=== PATIENT | female | born 1945 | race Caucasian/White ===

== ENCOUNTER → 2017-06-27 | Outpatient (CLI) | payer MEDICARE ==
--- NOTE | 2017-06-28 09:18 | MM ---
Reason for exam: screening (asymptomatic). Last mammogram was performed 1 year and 2 months ago. History: Patient is postmenopausal and had first child at age 33. Took estrogen for 8 years beginning at age 38. Physical Findings: A clinical breast exam by your physician is recommended on an annual basis and results should be correlated with mammographic findings. MG 3D Screening Mammo W/Cad Bilateral CC and MLO view(s) were taken. Prior study comparison: May 04, 2016, bilateral MG 3d screening mammo w/cad. April 25, 2015, bilateral MG screening mammo w CAD. The breast tissue is heterogeneously dense. This may lower the sensitivity of mammography. Finding: There are typically benign round calcifications in both breasts. There is no discrete abnormality. Increasing group of indistinct calcifications in the right breast anterior middle depth. ASSESSMENT: Incomplete: need additional imaging evaluation, BI-RAD 0 RECOMMENDATION: Special view mammogram of the right breast. [facility] will attempt to contact patient to return for supplemental views.
== END | disposition home or self-care (01) ==
LOC: RADMAMWWP 09:25
PROVIDERS: ATTEND Internal Medicine
DX: Z12.31 Encounter for screening mammogram for malignant neoplasm of breast (principal)
CPT/HCPCS: 77063; G0202

== ENCOUNTER → 2018-08-11 | Outpatient (CLI) | payer MEDICARE ==
--- NOTE | 2018-08-14 11:44 | MM ---
Reason for exam: additional evaluation requested from prior study. Last mammogram was performed 1 year and 1 month ago. History: Patient is postmenopausal and had first child at age 33. Took estrogen for 8 years beginning at age 38. Physical Findings: Nurse did not find any significant physical abnormalities on exam. MG 3D Diag Mammo W/Cad JARAD Bilateral CC and MLO view(s) were taken. LM view(s) were taken of the right breast. Prior study comparison: July 04, 2017, right breast MG 3d work up w/cad RT. June 27, 2017, bilateral MG 3d screening mammo w/cad. The breast tissue is heterogeneously dense. This may lower the sensitivity of mammography. There are increased in number grouped heterogeneous calcifications in the right middle position at 12 o'clock, more conspicuous. This finding is changed when compared with previous exams. These results were verbally communicated with the patient and result sheet given to the patient on 08/11/18. ASSESSMENT: Suspicious, BI-RAD 4 RECOMMENDATION: Stereotactic core biopsy of the right breast. Called Dr. Han with mammographic findings and has scheduled an appointment for the patient for 08/21/18 at 2:[address] Mar. PRELIMINARY REPORT CALLED AND FAXED TO DR. MAR ON 08/14/18.
== END | disposition home or self-care (01) ==
LOC: RADMAMWWP 09:32
PROVIDERS: ATTEND Internal Medicine
DX: R92.8 Other abnormal and inconclusive findings on diagnostic imaging of breast (principal)
CPT/HCPCS: 77066; G0279; 77062

== ENCOUNTER → 2018-09-15 | Day surgery (SDC) | payer MEDICARE ==
[2018-09-15 09:38] VITALS: RESP 16; TEMP 98; BMI 25.4
[2018-09-15 11:34] VITALS: BP 162/76; PULSE 76
--- NOTE | 2018-09-15 16:41 | MM ---
EXAMINATION TYPE: MG stereo VAD BX RT DATE OF EXAM: 09/15/2018 COMPARISON: 08/11/2018 CLINICAL HISTORY: Abnormal mammogram, calcifications TECHNIQUE: Stereotactic guided core biopsy of right breast. FINDINGS: The procedure of stereotactic guided core biopsy was explained to the patient. Benefits, alternatives, and risks were discussed. An informed consent was then obtained. Timeout was performed. The shortness pathway for biopsy was chosen. The procedure was performed by radiology. Targeting was performed by radiology. Specimen: Specimen contains calcifications Postprocedure mammogram ordered by the physician was performed. The core marker is at the location of the previous calcifications. The patient tolerated the procedure well without any immediate complication. The patient was kept in the radiology department for short stay after the procedure and then discharged home in stable condition. Discharge instructions were discussed with the patient. The patient will follow-up with her referring physician. IMPRESSION: 1. Successful stereotactic core biopsy right breast calcifications. Recommendations: 1. Recommendations are pending pathology results. Pathology Results: Benign RIGHT BREAST, STEREOTACTIC CORE BIOPSY: Fibrocystic changes including fibroadenomatoid hyperplasia with calcifications, fibrosis, and focal mild usual type ductal hyperplasia. Recommendation Follow up mammogram of the right breast in 6 months. ANYA
== END | disposition home or self-care (01) ==
LOC: RADMAMWWP 09:16
PROVIDERS: ATTEND Student in an Organized Health Care Education/Training Program
DX: N60.31 Fibrosclerosis of right breast (principal); N60.91 Unspecified benign mammary dysplasia of right breast; Z88.5 Allergy status to narcotic agent; Z88.0 Allergy status to penicillin
CPT/HCPCS: 88305; 19081; A4648; J2001

== ENCOUNTER → 2019-04-24 | Outpatient (CLI) | payer MEDICARE ==
--- NOTE | 2019-04-24 15:02 | BD ---
EXAMINATION TYPE: Axial Bone Density DATE OF EXAM: 04/24/2019 COMPARISON: 2016 CLINICAL HISTORY: bone disorders Height: 5'1 3/4 Weight: 147 FRAX RISK QUESTIONS: Glucocorticoids (More than 3mos): y (Ex: prednisone, prednisolone, methylprednisolone, dexamethasone, and hydrocortisone). Secondary Osteoporosis: 3. Menopause before 45: y RISK FACTORS HISTORY OF: Postmenopausal woman: y MEDICATIONS: Osteoporosis Medications: Which medication: Evista How Lon years Additional Medications: blood pressure, asthma, Additional History: EXAM MEASUREMENTS: Bone mineral densitometry was performed using the Directed Edge System. Bone mineral density as measured about the Lumbar spine is: ----- L1-L4(G/cm2): 1.079 T Score Values are as follows: ----- L2:-1.4 ----- L3:-0.6 ----- L4: -0.9 ----- L1-L4: -0.8 Bone mineral density has: Increased 2.5since study of: 05/04/2016 Bone mineral density about the R hip (g/cm2): 0.798 Bone mineral density about the L hip (g/cm2): 0.778 T Score values are as follows: -----R Neck: -1.7 -----L Neck: -1.9 -----R Total: -1.1 -----L Total: -1.5 Bone mineral density has: Decreased -1.2isince studyf: 05/04/2019 IMPRESSION: Osteopenia (T Score between -2.5 and -1). There is slightly increased risk of fracture and the patient may be considered for treatment. Re-Screen 2-5 years. NOTE: T-SCORE=SD OF THE YOUNG ADULT MEAN.
--- NOTE | 2019-04-24 15:06 | MM ---
Reason for exam: follow-up at short interval from prior study. Last mammogram was performed 8 months ago. History: Patient is postmenopausal and had first child at age 33. Benign MG stereo VAD BX RT of the right breast, September 15, 2018. Took estrogen for 8 years beginning at age 38. Physical Findings: Nurse did not find any significant physical abnormalities on exam. MG 3D Diag Mammo W/Cad RT CC and MLO view(s) were taken of the right breast. Prior study comparison: August 11, 2018, bilateral MG 3d diag mammo w/cad JARAD. July 04, 2017, right breast MG 3d work up w/cad RT. The breast tissue is heterogeneously dense. This may lower the sensitivity of mammography. The previously seen abnormality resolves on additional views and appears as fibroglandular tissue compatible with summation. Right biopsy marker noted. These results were verbally communicated with the patient and result sheet given to the patient on 04/24/19. ASSESSMENT: Benign, BI-RAD 2 RECOMMENDATION: Routine screening mammogram of both breasts in 3 months. Back on schedule for July 2019.
== END | disposition home or self-care (01) ==
LOC: RADMAMWWP 13:43
PROVIDERS: ATTEND Internal Medicine
DX: R92.8 Other abnormal and inconclusive findings on diagnostic imaging of breast (principal); M85.89 Other specified disorders of bone density and structure, multiple sites
CPT/HCPCS: 77080; 77065; G0279; 77061

== ENCOUNTER → 2019-08-02 | Outpatient (CLI) | payer MEDICARE ==
--- NOTE | 2019-08-02 15:31 | CT ---
EXAMINATION TYPE: CT abdomen pelvis w con DATE OF EXAM: 08/02/2019 COMPARISON: None HISTORY: Abdominal pain, diarrhea CT DLP: 1073 mGycm CONTRAST: CT scan of the abdomen and pelvis is performed with Oral Contrast and with IV Contrast, patient injec colby with 100 mL of Isovue 300. FINDINGS: LUNG BASES-: No visible nodule. No infiltrate. LIVER/GB: No calcified gallstones. No space occupying hepatic lesion. Biliary tree is of normal ca liber. Mild hepatic steatosis suggested. PANCREAS: No inflammation. No distinct mass. SPLEEN: No splenic enlargement. No lesion seen. ADRENALS: No nodule. No thickening. KIDNEYS/BLADDER: No hydronephrosis. No nephrolithiasis. Parapelvic cyst left kidney. Renal cortical cyst lower pole right kidney measuring 4.8 cm. Urinary bladder grossly unremarkable. BOWEL: Normal appendix. Normal bowel caliber. No inflammation. Moderate fecal stasis. Scattered sig moid diverticula without diverticulitis. GENITAL ORGANS: No gross abnormality. LYMPH NODES: No greater than 1cm abdominal or pelvic lymph nodes are appreciated. AORTA: No significant abnormality. OSSEOUS STRUCTURES: No significant abnormality is seen. OTHER: No significant additional abnormality is seen. IMPRESSION: 1. Moderate fecal stasis. Scattered sigmoid diverticula without diverticulitis.
== END | disposition home or self-care (01) ==
LOC: RADCTMAIN 12:47
PROVIDERS: ATTEND Surgery Plastic and Reconstructive Surgery
DX: K57.30 Diverticulosis of large intestine without perforation or abscess without bleeding (principal); K56.41 Fecal impaction; Z88.0 Allergy status to penicillin
CPT/HCPCS: 82565; 84520; 74177; 36415; Q9967

== ENCOUNTER → 2019-08-23 | Outpatient (CLI) | payer MEDICARE ==
--- NOTE | 2019-08-23 09:25 | US ---
EXAMINATION TYPE: US gallbladder DATE OF EXAM: 08/23/2019 COMPARISON: CT 08/02/2019 CLINICAL HISTORY: R10.11 right upper quadrant pain. Difficult and limited exam due to overlying bowel gas EXAM MEASUREMENTS: Liver Length: 14.1 cm Gallbladder Wall: 0.2 cm CBD: 0.4 cm Right Kidney: 11.3 x 4.6 x 4.5 cm Pancreas: Obscured by bowel gas Liver: Echogenic echotexture suggesting mild degree hepatic steatosis. This limits evaluation for un derlying hepatic masses. Gallbladder: wnl Evidence for sonographic Hansen's sign: No CBD: wnl as visualized, distal portion obscured by bowel gas Right Kidney: Cyst lower pole measuring 4.6 x 5.2 x 5.8 cm. This appears simple with increased throu gh transmission. IMPRESSION: 1. Sonographic findings most commonly related to hepatic steatosis. Correlate with liver function fidel ts. 2. Simple appearing 5.8 cm right renal cyst. 3. Obscuration of the pancreas by overlying bowel gas.
== END ==
LOC: RADUSWWP 08:16
PROVIDERS: ATTEND Surgery Plastic and Reconstructive Surgery
DX: K76.0 Fatty (change of) liver, not elsewhere classified (principal); N28.1 Cyst of kidney, acquired
CPT/HCPCS: 76705

== ENCOUNTER 2019-09-05 08:47 | Day surgery (SDC) | payer MEDICARE ==
[2019-09-03 09:46] VITALS: BMI 26.0
[~2019-09-05 08:47] MED LIST: LACTATED RINGERS 1,000 ML IV SCH
[2019-09-05 09:10] VITALS: RESP 16; TEMP 98.1
[2019-09-05] MEDS ORDERED: LIDOCAINE 1% 20 ML VIAL (10MG/ML) FOR IV START INTRADERMA ONE (09:16)
[2019-09-05 09:19] LABS: Glucose,Whole Blood 81 mg/dL (75-99)
[2019-09-05] MEDS ORDERED: PROPOFOL 10 MG/ML 20 ML VIAL IV ONE (09:35)
--- NOTE | 2019-09-05 10:04 | P.GSHP ---
History of Present Illness H&P Date: 09/05/19 CHIEF COMPLAINT: GERD and colon screen HISTORY OF PRESENT ILLNESS: The patient is a 73-year-old female who presents with gastroesophageal reflux disease and need for colon screen. Upper and lower endoscopy were offered for further evaluation and management. PAST MEDICAL HISTORY: Please see list. PAST SURGICAL HISTORY: Please see list. MEDICATIONS: Please see list. ALLERGIES: Please see list. SOCIAL HISTORY: No illicit drug use FAMILY HISTORY: No reports of Crohn disease or ulcerative colitis. REVIEW OF ORGAN SYSTEMS: CONSTITUTIONAL: No reports of fevers or chills. GI: Denies any blood in stools or constipation. PHYSICAL EXAM: VITAL SIGNS: Stable GENERAL: Well-developed pleasant in no acute distress. HEENT: No scleral icterus. Extraocular movements grossly intact. Moist buccal mucosa. NECK: Supple without lymphadenopathy. CHEST: Unlabored respirations. Equal bilateral excursions. CARDIOVASCULAR: Regular rate and rhythm. Distal 2+ pulses. ABDOMEN: Soft, nondistended. MUSCULOSKELETAL: No clubbing, cyanosis, or edema. ASSESSMENT: 1. Gastroesophageal reflux disease 2. Colon screen. PLAN: 1. Recommend proceeding with an upper and lower endoscopy Past Medical History Past Medical History: Asthma, GERD/Reflux, Hypertension Additional Past Medical History / Comment(s): daily steroid,hx diverticulosis History of Any Multi-Drug Resistant Organisms: ESBL Date of last positivie culture/infection: 06/22/19 MDRO Source:: URINE ESBL Past Surgical History: Bowel Resection, Joint Replacement Additional Past Surgical History / Comment(s): right total knee replacement. left knee arthroscopy. monae cataract Past Anesthesia/Blood Transfusion Reactions: Motion Sickness, Postoperative Nausea & Vomiting (PONV) Smoking Status: Never smoker - Past Family History Mother Family Medical History: No Reported History Brother(s) Family Medical History: Cancer Medications and Allergies Home Medications Medication Instructions Recorded Confirmed Type Albuterol Inhaler [Ventolin Hfa 2 puff INHALATION Q6H PRN 07/15/17 09/05/19 History Inhaler] Aspirin [Adult Low Dose Aspirin EC] 81 mg PO DAILY 07/15/17 09/05/19 History Felodipine [Felodipine ER] 5 mg PO QAM 07/15/17 09/05/19 History Hydrochlorothiazide 25 mg PO Q2D 07/15/17 09/05/19 History Montelukast [Singulair] 10 mg PO HS 10/27/17 12/18/19 History Potassium Chloride ER [K-Dur 20] 20 meq PO BID 07/15/17 09/05/19 History Raloxifene HCl 60 mg PO DAILY 07/15/17 09/05/19 History predniSONE 5 mg PO QAM 07/15/17 09/05/19 History Beclomethasone Dip 80 Mcg/Puff 2 puff INHALATION BID 09/05/18 09/05/19 History [Qvar 80 mcg] Latanoprost Ophth [Xalatan 0.005%] 1 drops BOTH EYES HS 09/05/18 09/05/19 Histo ry Carboxymethylcellulose Sodium 1 drop BOTH EYES TID PRN 09/03/19 09/05/19 History [Refresh Tears] Esomeprazole Magnesium 40 mg PO DAILY 09/03/19 09/05/19 History Nepafenac [Ilevro] 1 drop LEFT EYE QAM 09/03/19 09/05/19 History Allergies Allergy/AdvReac Type Severity Reaction Status Date / Time Penicillins Allergy Rash/Hives Verified 09/05/19 09:02 codeine AdvReac Nausea & Verified 09/05/19 09:02 Vomiting Surgical - Exam Vital Signs Temp Pulse Resp BP Pulse Ox 98.1 F 86 16 160/73 93 L 09/05/19 09:04 09/05/19 09:04 09/05/19 09:04 09/05/19 09:04 09/05/19 09:04
--- NOTE | 2019-09-05 10:09 | P.PCN ---
Date of Procedure: 09/05/19 Description of Procedure: PREOPERATIVE DIAGNOSIS: Gastroesophageal reflux disease. Dysphagia POSTOPERATIVE DIAGNOSIS: Gastroesophageal reflux disease erosive esophagitis Dysphagia Diaphragmatic hiatal hernia OPERATION: Esophagogastroduodenoscopy with biopsies along antrum. SURGEON: Kacy Acuña MD ANESTHESIA: MAC. INDICATIONS: The patient is a 73-year-old female who presents with a history of reflux disease. Benefits and risks of the procedure were described. Informed consent was obtained. DESCRIPTION: The patient was brought into the endoscopy suite and laid in the left lateral decubitus position. An Olympus gastroscope was passed along the posterior oropharynx down to the distal esophagus where the squamocolumnar junction was encountered at 35 cm from the incisors. The stomach was entered and no bile reflux was found. Additional findings are listed below. Biopsies with cold forceps were obtained of the antrum. The first through third portion of the duodenum was examined and unremarkable. Retroflexion of the scope confirmed Hill grade 4 lower esophageal valve. The squamocolumnar junction demonstrated LA grade C erosive esophagitis. The stomach was desufflated. The patient tolerated the procedure well. FINDINGS: Squamocolumnar junction 35 cm from the incisors. Diaphragmatic hiatus at 40 cm. Hiatal hernia, 5 cm Hill grade 4 lower esophageal valve. LA grade C erosive esophagitis. No active duodenitis. Chronic gastritis RECOMMENDATIONS: Upper endoscopy as needed.
--- NOTE | 2019-09-05 10:19 | P.PCN ---
Date of Procedure: 09/05/19 Description of Procedure: PREOPERATIVE DIAGNOSIS: History of rectal mass Change in bowel habits POSTOPERATIVE DIAGNOSIS: History of rectal mass Change in bowel habits Pandiverticulosis External hemorrhoids History of sigmoid resection OPERATION: Colonoscopy to the ileocecal valve and appendiceal orifice. Colonoscopy with cold forceps biopsies SURGEON: Kacy Acuña MD. ANESTHESIA: MAC. INDICATIONS: The patient is an 73-year-old female who presents with change in bowel habits including rectal mass. Benefits and risks were described and informed consent was obtained. DESCRIPTION OF PROCEDURE: The patient had undergone Suprep. She had been brought into the operating room and laid in the left lateral decubitus position. After adequate intravenous sedation, the rectum was examined with 2% lidocaine jelly. External hemorrhoids were encountered. The rectal tone was within normal limits. No lesions were palpated in the rectal vault. An Olympus colonoscope was advanced until the ileocecal valve was clearly viewed. The prep was excellent. Boston-colo anastomosis was found consistent with prior resection of the distal rectum consistent with previous sigmoid resection/low anterior resection. The colon was highly redundant and floppy. Severe meier-diverticulosis was encountered. A hyperplastic polyp at the sigmoid colon was removed using cold forceps biopsy. No evidence of focal colitis was found. Retroflexion of the scope demonstrated grade 2 internal hemorrhoids without active bleeding or inflammation. The colon was desufflated. The patient had tolerated the procedure well. Withdrawal time was over 6 minutes. FINDINGS: Aronchick preparation quality scale 1 (1-5) Internal hemorrhoids, grade 2 External hemorrhoids, grade 3. No arteriovenous malformations. Severe meier diverticulosis Colon anastomosis consistent with low anterior resection Removal of 1 polyp: - Cold forceps biopsy at 30 cm from the anal verge, 3 mm polyp. No focal colitis. RECOMMENDATIONS: Lower endoscopy as needed Plan - Discharge Summary Discharge Rx Participant: No New Discharge Prescriptions: No Action predniSONE 5 mg PO QAM Raloxifene HCl 60 mg PO DAILY Potassium Chloride ER [K-Dur 20] 20 meq PO BID Montelukast [Singulair] 10 mg PO HS Hydrochlorothiazide 25 mg PO Q2D Felodipine [Felodipine ER] 5 mg PO QAM Aspirin [Adult Low Dose Aspirin EC] 81 mg PO DAILY Albuterol Inhaler [Ventolin Hfa Inhaler] 2 puff INHALATION Q6H PRN PRN Reason: Bronchospasm Latanoprost Ophth [Xalatan 0.005%] 1 drops BOTH EYES HS Beclomethasone Dip 80 Mcg/Puff [Qvar 80 mcg] 2 puff INHALATION BID Carboxymethylcellulose Sodium [Refresh Tears] 1 drop BOTH EYES TID PRN PRN Reason: dry eyes Esomeprazole Magnesium 40 mg PO DAILY Nepafenac [Ilevro] 1 drop LEFT EYE QAM Discharge Medication List Albuterol Inhaler [Ventolin Hfa Inhaler] 2 puff INHALATION Q6H PRN 07/15/17 [History] Aspirin [Adult Low Dose Aspirin EC] 81 mg PO DAILY 07/15/17 [History] Felodipine [Felodipine ER] 5 mg PO QAM 07/15/17 [History] Hydrochlorothiazide 25 mg PO Q2D 07/15/17 [History] Montelukast [Singulair] 10 mg PO HS 07/15/17 [History] Potassium Chloride ER [K-Dur 20] 20 meq PO BID 07/15/17 [History] Raloxifene HCl 60 mg PO DAILY 07/15/17 [History] predniSONE 5 mg PO QAM 07/15/17 [History] Beclomethasone Dip 80 Mcg/Puff [Qvar 80 mcg] 2 puff INHALATION BID 09/05/18 [History] Latanoprost Ophth [Xalatan 0.005%] 1 drops BOTH EYES HS 09/05/18 [History] Carboxymethylcellulose Sodium [Refresh Tears] 1 drop BOTH EYES TID PRN 09/03/19 [History] Esomeprazole Magnesium 40 mg PO DAILY 09/03/19 [History] Nepafenac [Ilevro] 1 drop LEFT EYE QAM 09/03/19 [History] Follow up Appointment(s)/Referral(s): Kacy Acuña MD [STAFF PHYSICIAN] - 10/02/19 Patient Instructions/Handouts: Hiatal Hernia (DC), Diverticulosis (ED), Diverticulosis Diet (GEN) Activity/Diet/Wound Care/Special Instructions: Colonoscopy as needed. Discharge Disposition: HOME SELF-CARE
[2019-09-05 10:30] VITALS: BP 147/71; PULSE 70
== END 2019-09-05 10:57 | disposition home or self-care (01) ==
LOC: ORWHC2ENDO 08:47
PROVIDERS: ATTEND Surgery Plastic and Reconstructive Surgery
DX: K21.0 Gastro-esophageal reflux disease with esophagitis (principal); I10 Essential (primary) hypertension; J45.909 Unspecified asthma, uncomplicated; K29.50 Unspecified chronic gastritis without bleeding; K44.9 Diaphragmatic hernia without obstruction or gangrene; K63.5 Polyp of colon; K64.4 Residual hemorrhoidal skin tags; Z79.82 Long term (current) use of aspirin; Z79.899 Other long term (current) drug therapy; Z88.0 Allergy status to penicillin; Z88.5 Allergy status to narcotic agent; Z16.12 Extended spectrum beta lactamase (ESBL) resistance; Z96.651 Presence of right artificial knee joint; Z98.42 Cataract extraction status, left eye; Z98.41 Cataract extraction status, right eye; Z86.010 Personal history of colon polyps
CPT/HCPCS: 88305; 45380; 43239; J2704

== ENCOUNTER → 2019-09-07 | Outpatient (CLI) | payer MEDICARE ==
--- NOTE | 2019-09-10 10:31 | MM ---
Reason for exam: screening (asymptomatic). Last mammogram was performed 4 months ago. History: Patient is postmenopausal and had first child at age 33. Benign MG stereo VAD BX RT of the right breast, September 15, 2018. Took estrogen for 8 years beginning at age 38. Physical Findings: A clinical breast exam by your physician is recommended on an annual basis and results should be correlated with mammographic findings. MG 3D Screening Mammo W/Cad Bilateral CC and MLO view(s) were taken. Prior study comparison: April 24, 2019, right breast MG 3d diag mammo w/cad RT. August 11, 2018, bilateral MG 3d diag mammo w/cad JARAD. The breast tissue is heterogeneously dense. This may lower the sensitivity of mammography. There is no discrete abnormality. No significant changes when compared with prior studies. ASSESSMENT: Negative, BI-RAD 1 RECOMMENDATION: Routine screening mammogram of both breasts in 1 year.
== END | disposition home or self-care (01) ==
LOC: RADMAMWWP 09:02
PROVIDERS: ATTEND Family Medicine
DX: Z12.31 Encounter for screening mammogram for malignant neoplasm of breast (principal)
CPT/HCPCS: 77063; 77067

== ENCOUNTER → 2020-05-21 | Outpatient (CLI) | payer MEDICARE ==
--- NOTE | 2020-05-21 11:43 | XR ---
EXAMINATION TYPE: XR cervical spine comp DATE OF EXAM: 05/21/2020 CLINICAL HISTORY: pain COMPARISON: NONE TECHNIQUE: Frontal, lateral, oblique, swimmers, and open mouth view of the cervical spine are obtaine d. FINDINGS: The cervical spine is visualized in its entirety from C1 thru the top of T1 level. It is s atisfactory in alignment without evidence of acute fracture or dislocation. The pre-vertebral soft t issue appears within normal limits. Mild multilevel degenerative disc space narrowing and spondylosis . The C1-C2 articulation is unremarkable on the open mouth view. The oblique images are within antwan l limits. IMPRESSION: No acute fracture or dislocation is seen in the cervical spine.ICD 10 NO FRACTURE, INITI AL EVALUATION
== END | disposition home or self-care (01) ==
LOC: RADXRMAIN 10:38
PROVIDERS: ATTEND Internal Medicine Critical Care Medicine
DX: M54.2 Cervicalgia (principal)
CPT/HCPCS: 72050

== ENCOUNTER 2020-06-13 12:20 | Observation (INO) | payer MEDICARE ==
--- NOTE | 2020-06-13 09:19 | P.GSHP ---
History of Present Illness H&P Date: 06/13/20 CHIEF COMPLAINT: Paraesophageal hiatal hernia with gastroesophageal reflux disease. HISTORY OF PRESENT ILLNESS: The patient is a 74-year-old female who presents with paraesophageal hiatal hernia. She has completed an esophageal manometry including upper endoscopy workup. Now she presents for surgical intervention. PAST MEDICAL HISTORY: Please see list. PAST SURGICAL HISTORY: Please see list. MEDICATIONS: Please see list. ALLERGIES: Please see list. SOCIAL HISTORY: No illicit drug use FAMILY HISTORY: No reports of Crohn disease or ulcerative colitis. REVIEW OF ORGAN SYSTEMS: CONSTITUTIONAL: No reports of fevers or chills. GI: Denies any blood in stools or constipation. PHYSICAL EXAM: VITAL SIGNS: Stable GENERAL: Well-developed pleasant and in no acute distress. HEENT: No scleral icterus. Extraocular movements grossly intact. Moist buccal mucosa. NECK: Supple without lymphadenopathy. CHEST: Unlabored respirations. Equal bilateral excursions. CARDIOVASCULAR: Regular rate and rhythm. Distal 2+ pulses. ABDOMEN: Soft, nondistended. No peritoneal signs. MUSCULOSKELETAL: No clubbing, cyanosis, or edema. SKIN: Well-perfused. Good skin turgor. MANOMETRY: Shows no evidence of achalasia or scleroderma. ASSESSMENT: 1. Diaphragmatic paraesophageal hiatal hernia with severe gastroesophageal reflux disease. PLAN: 1. Recommend proceeding with a robotic paraesophageal hiatal hernia with possible mesh. 2. Benefits and risks of surgical intervention was discussed including possibility of open technique. 3. Inpatient hospitalization recommended of 2 nights 4. DVT prophylaxis. 5. Antibiotic prophylaxis. 6. She has also completed a very low caloric high-protein diet to address underlying hepatomegaly. Past Medical History Past Medical History: Asthma, Eye Disorder, GERD/Reflux, Hypertension, Osteoarthritis (OA) Additional Past Medical History / Comment(s): glaucoma, hx migraines, hiatal hernia, arthritis in hands and feet, "leaky bladder" History of Any Multi-Drug Resistant Organisms: ESBL Date of last positivie culture/infection: 06/22/19 MDRO Source:: URINE ESBL Past Surgical History: Bowel Resection, Breast Surgery, Joint Replacement, Orthopedic Surgery Additional Past Surgical History / Comment(s): monae knee replacement, rt knee arthroscopy, breast biopsy, monae cataracts Past Anesthesia/Blood Transfusion Reactions: Motion Sickness Smoking Status: Never smoker - Past Family History Mother Family Medical History: No Reported History Brother(s) Family Medical History: Cancer Additional Family Medical History / Comment(s): leukemia Medications and Allergies Home Medications Medication Instructions Recorded Confirmed Type Albuterol Inhaler (Mhu) [Ventolin 2 puff INHALATION Q6H PRN 07/15/17 06/11/20 History Hfa Inhaler] Aspirin [Adult Low Dose Aspirin EC] 81 mg PO DAILY 07/15/17 06/11/20 History Felodipine [Felodipine ER] 5 mg PO QAM 07/15/17 06/11/20 History Montelukast [Singulair] 10 mg PO HS 07/15/17 06/11/20 History Potassium Chloride ER [K-Dur 20] 20 meq PO BID 07/15/17 06/11/20 History Raloxifene HCl 60 mg PO DAILY 07/15/17 06/11/20 History hydroCHLOROthiazide 25 mg PO Q2D 07/15/17 06/11/20 History [Hydrochlorothiazide] predniSONE 5 mg PO QAM 07/15/17 06/11/20 History Beclomethasone Dip 80 Mcg/Puff 2 puff INHALATION BID 09/05/18 06/11/20 History [Qvar 80 mcg] Latanoprost Ophth [Xalatan 0.005%] 1 drops BOTH EYES HS 09/05/18 06/11/20 History Carboxymethylcellulose Sodium 1 drop BOTH EYES TID PRN 09/03/19 06/11/20 History [Refresh Tears] Esomeprazole Magnesium 40 mg PO DAILY 09/03/19 06/11/20 History Metoprolol Tartrate [Lopressor] 25 mg PO BID 06/11/20 06/11/20 History Nebulizer(Unknown) 1 applicate IH DIRECTED PRN 06/11/20 06/11/20 History Allergies Allergy/AdvReac Type Severity Reaction Status Date / Time Penicillins Allergy Rash/Hives Verified 06/11/20 08:16 codeine AdvReac Nausea & Verified 06/11/20 08:16 Vomiting
[~2020-06-13 12:20] MED LIST changes: +ACETAMINOPHEN TAB 500 MG TAB PO STA; +CHLORHEXIDINE GLUCONATE 15 ML CUP MUCOUS MEM ONE; +DEXAMETHASONE SOD PHOSPHATE 10 MG/ML 1 ML VIAL IV ONE; +HEPARIN SODIUM,PORCINE 5,000 UNIT/ML 1 ML VIAL SQ ONE; -LACTATED RINGERS 1,000 ML IV SCH; +LIDOCAINE 1% (10MG/ML) FOR IV START INTRADERMA PRN; +MIDAZOLAM 2 MG/2 ML VIAL IV PRN; +ONDANSETRON 4 MG/2 ML VIAL IVP ONE; +PANTOPRAZOLE 40 MG/10 ML VIAL IV STA; +metroNIDAZOLE-NS PMX 500 MG in SALINE 1 100ML.BAG IVPB ONE
[2020-06-13] MEDS: LACTATED RINGERS 1,000 ML IV SCH (13:15)
[2020-06-13 13:35] LABS: Glucose,Whole Blood 97 mg/dL (75-99)
[2020-06-13 13:43] LABS: Basophils # (A) 0.1 k/uL (0-0.2); Basophils % (A) 1 %; Eosinophils # (A) 0.4 k/uL (0-0.7); Eosinophils % (A) 5 %; HCT 39.2 % (34.0-46.0); HGB 12.8 gm/dL (11.4-16.0); Lymphocytes # (A) 1.3 k/uL (1.0-4.8); Lymphocytes % (A) 16 %; MCH 29.7 pg (25.0-35.0); MCHC 32.7 g/dL (31.0-37.0); MCV 90.8 fL (80.0-100.0); Mean Platelet Volume 9.3; Monocytes # (A) 0.3 k/uL (0-1.0); Monocytes % (A) 3 %; Neutrophils # (A) 6.4 k/uL (1.3-7.7); Neutrophils % (A) 74 %; Platelet Count 236 k/uL (150-450); RBC 4.32 m/uL (3.80-5.40); RDW 14.1 % (11.5-15.5); WBC 8.6 k/uL (3.8-10.6)
[2020-06-13 13:48] LABS: ALT 19 U/L (4-34); AST 27 U/L (14-36); African American GFR (CKD) >90 (>60 ml/min/1.73 sqM); Alkaline Phosphatase 43 U/L (38-126); Anion Gap 7 mmol/L; Blood Urea Nitrogen 27 mg/dL (7-17); Calcium 9.2 mg/dL (8.4-10.2); Carbon Dioxide 26 mmol/L (22-30); Chloride 106 mmol/L (98-107); Glucose 99 mg/dL (74-99); Non-African American GFR(CKD) 87 (>60 ml/min/1.73 sqM); Potassium 4.2 mmol/L (3.5-5.1); Sodium 139 mmol/L (137-145); Total Bilirubin 0.9 mg/dL (0.2-1.3); Total Protein 6.9 g/dL (6.3-8.2)
[2020-06-13] MEDS ORDERED: KETOROLAC 15 MG/ML 1 ML VIAL ONE (16:26)
[2020-06-13] MEDS ORDERED: LIDOCAINE 1% INJ 10MG/ML (20 ML MDV) ONE (16:26)
[2020-06-13] MEDS ORDERED: ROCURONIUM 10 MG/ML (5 ML VIAL) IV ONE (16:26)
[2020-06-13] MEDS ORDERED: MIDAZOLAM 2 MG/2 ML VIAL ONE (16:26)
[2020-06-13] MEDS ORDERED: NEOSTIGMINE 1 MG/ML 10 ML VIAL ONE (16:26)
[2020-06-13] MEDS ORDERED: fentaNYL (PF) 50 MCG/ML 2 ML AMP ONE (16:26)
[2020-06-13] MEDS ORDERED: GLYCOPYRROLATE 0.2 MG/ML 2 ML VIAL ONE (16:26)
[2020-06-13] MEDS ORDERED: PHENYLEPHRINE-0.9% NACL SYG 1 MG/10 ML SYRINGE ONE (16:26)
[2020-06-13] MEDS ORDERED: PROPOFOL 10 MG/ML 20 ML VIAL IV ONE (16:26)
[2020-06-13] MEDS ORDERED: BUPIVACAINE (PF) 0.25% 30 ML VIAL SQ ONE (16:50)
[2020-06-13] MEDS ORDERED: LACTATED RINGERS 1,000 ML IV ONE (18:01)
[2020-06-13] MEDS ORDERED: ARTIFICIAL TEARS-HYPROMELLOSE DROPS 15 ML BTL BOTH EYES PRN (18:41)
[2020-06-13] MEDS ORDERED: HYDROmorphone 1 MG/ML 1 ML SYRINGE IVP PRN (18:43)
[2020-06-13] MEDS ORDERED: hydroCHLOROthiazide 25 MG TAB PO SCH (18:45)
[2020-06-13] MEDS: HYDROmorphone 0.5 MG/0.5 ML SYRINGE IVP PRN ×2 (18:47→18:53)
[2020-06-13] MEDS ORDERED: NALOXONE 0.4 MG/ML 1 ML VIAL IV PRN (18:49)
[2020-06-13] MEDS ORDERED: diphenhydrAMINE 50 MG/ML 1 ML VIAL IVP PRN (18:49)
[2020-06-13] MEDS ORDERED: ACETAMINOPHEN IV (For NPO) 1,000 MG in EMPTY BAG 1 BAG IVPB SCH (19:00)
[2020-06-13] MEDS ORDERED: HYDROmorphone 0.5 MG/0.5 ML SYRINGE IVP ONE (19:00)
[2020-06-13] MEDS: FLUTICASONE 110 MCG INHALER INHALATION SCH (19:58)
[2020-06-13] MEDS: ALBUTEROL NEBULIZED 2.5 MG/3 ML INHALATION SCH (19:58)
[2020-06-13] MEDS ORDERED: LATANOPROST 0.005% OPHTH DROPS 2.5 ML BTL BOTH EYES SCH (21:00)
[2020-06-13] MEDS ORDERED: MONTELUKAST 10 MG TAB PO SCH (21:00)
[2020-06-13] MEDS: METOCLOPRAMIDE 5 MG/ML 2 ML VIAL IVP SCH (21:46)
[2020-06-13] MEDS: ACETAMINOPHEN IV (For NPO) 650 MG in EMPTY BAG 1 BAG IVPB SCH (21:47)
[2020-06-13] MEDS: METOPROLOL TARTRATE 25 MG TAB PO SCH (21:47)
[2020-06-13] MEDS: SODIUM CHLORIDE 0.9% 1,000 ML IV SCH (21:55)
[2020-06-14] MEDS: METOCLOPRAMIDE 5 MG/ML 2 ML VIAL IVP SCH ×3 (01:40→12:40)
[2020-06-14] MEDS: ACETAMINOPHEN IV (For NPO) 650 MG in EMPTY BAG 1 BAG IVPB SCH ×3 (01:40→12:38)
[2020-06-14] MEDS: SIMETHICONE 40 MG/0.6 ML DROPS 2,000 MG/30 ML BOTTLE PO SCH ×3 (01:40→12:40)
[2020-06-14] MEDS: ONDANSETRON 4 MG/2 ML VIAL IVP SCH ×3 (01:40→12:40)
[2020-06-14] MEDS: SODIUM CHLORIDE 0.9% 1,000 ML IV SCH (06:36)
[2020-06-14] MEDS: LACTATED RINGERS 1,000 ML IV SCH (06:37)
--- NOTE | 2020-06-14 07:35 | FL ---
EXAMINATION TYPE: FL esophagus cervic/pharynx DATE OF EXAM: 06/14/2020 LIMITED ESOPHAGRAM: CLINICAL HISTORY: Hiatal hernia and reflux, Anne fundoplication surgery yesterday. TECHNIQUE: Limited esophagram is performed utilizing 20 oz of Isovue-370. A total of 14 seconds of f luoroscopic time was utilized during procedure. 24 spot images saved to PACS. FINDINGS: The patient swallowed contrast without difficulty or delay. Some underlying esophageal dys motility with abnormal secondary and tertiary contractions. Some stasis of contrast noted. There is g ood flow of contrast along the diaphragmatic hiatus into the stomach, there is no evidence of contras t extravasation to suggest leak. No persistent fixed hiatal hernia is seen. Patient shows no increase d symptoms of nausea or vomiting. IMPRESSION: No evidence of leak or significant obstruction status post James fundoplication surgery yesterday.
[2020-06-14] MEDS: FLUTICASONE 110 MCG INHALER INHALATION SCH (08:12)
[2020-06-14] MEDS: ALBUTEROL NEBULIZED 2.5 MG/3 ML INHALATION SCH ×2 (08:14→11:40)
--- NOTE | 2020-06-14 08:18 | P.OP ---
Date of Procedure: 06/13/20 Description of Procedure: SURGEON: SHANON MONTES DE OCA MD PREOPERATIVE DIAGNOSES: 1. Symptomatic paraesophageal diaphragmatic hiatal hernia 2. Hypertensive heart disease 3. Chronic obstructive pulmonary disease 4. Steroid-dependent 5. Migraines 6. Anxiety 7. Depressive disorder POSTOPERATIVE DIAGNOSES: 1. Symptomatic paraesophageal diaphragmatic hiatal hernia 2. Hypertensive heart disease 3. Chronic obstructive pulmonary disease 4. Steroid-dependent 5. Migraines 6. Anxiety 7. Depressive disorder 8. Peritoneal adhesions OPERATION: 1. Robotic-assisted da Jessie Xi laparoscopic repair of incarcerated paraesophageal hiatal hernia, 5 x 4 cm, with [place] Biopatch A 8 x 8 cm. 2. Robotic-assisted da Jessie Xi laparoscopic lysis of adhesions 3. Intraoperative esophagogastroduodenoscopy 4. Placement of 56-Belarusian bougie ANESTHESIA: General with local anesthetic. ESTIMATED BLOOD LOSS: 5 mL SPECIMENS REMOVED: None COMPLICATIONS: None. Condition: stable Disposition: floor FINDINGS: 1. Midline incarcerated paraesophageal hiatal hernia 5 x 4 cm 2. Intraoperative upper endoscopy confirms complete closure of hiatal hernia from Hill grade 4 to Hill grade 1 3. Intraesophageal length over 3+ centimeters 4. Peritoneal adhesions left upper quadrant from previous surgery INDICATIONS: The patient is a 74-year-old female who presents with epigastric abdominal pain, gastroesophageal reflux disease poorly controlled despite medications, and a symptomatic diaphragmatic hiatal hernia. Preoperative workup including upper endoscopy demonstrated a sliding hiatal hernia. She completed an esophageal manometry. Given the severity of symptoms, she had elected for surgical intervention. Benefits and risks including bleeding, infection, recurrence, dysphagia, injury to the lung, need for further surgery was described at length. Informed consent was obtained. DESCRIPTION: The patient was brought into the operating room and placed in supine position. Preoperatively she had received heparin subcutaneously for DVT prophylaxis. After general induction, the abdomen was prepped and draped in standard sterile fashion. The patient had previously voided prior to coming to the operating room. Ioban draping was placed along the abdomen. A timeout protocol was confirmed with the surgical team, for which the patient's name, procedure to be performed including DVT prophylaxis with bilateral SCDs, and preoperative antibiotics were also confirmed. A robotic da Jessie Xi system was prepped and primed. At 12 cm from the xiphoid to just below the umbilicus, proposed port sites were marked with indelible marker along the left axillary line, left mid-clavicular line with each ports were marked 10 cm from each other. A 5 mm 0 degrees laparoscopic trocar entry was performed along the left upper quadrant. The abdomen was insufflated to 15 mmHg pressure was tolerated well. Diagnostic laparoscopy demonstrated no injury to bowel, viscera, or mesentery. No injury had occurred to the small bowel or viscera. The liver was smooth, with sharp edges consistent with two-week high-protein low-carb diet. Previous trochar sites from cholecystectomy were used. Next, one 8 mm robotic port was placed along the right upper abdomen. An 8-mm port was were placed along the right lateral lateral abdominal wall. The camera 8-mm port was maintained along the epigastrium. Another 12 mm port was placed along the left upper abdominal wall after exchanging the 5 mm port. Please note that the ports were placed at least 20 cm away from the target anatomy. Care was taken to check that each robotic arm were safely away from collision with the bed or the patient. At the epigastrium, a medium sized Fahad liver retractor was placed under direct visualization with the Iron Trim Technician placed under the right shoulder of the patient. All robotic arms were used. The patient was repositioned in reverse Trendelenburg position at 21-degrees after lowering the bed. The robot was docked above the right side of the patient. Using a grasper for arm 3, a grasper for arm 1, including vessel sealer for arm 2, the robotic system was docked and primed as described. Instruments were interchanged by the dental laboratory assistant. I had sat at the console. Adhesions along the left upper quadrant was addressed with vessel sealer over 30 minutes. The gastrohepatic ligament was cleaved using a vessel sealer. Next, the phrenoesophageal ligament was mobilized and the distal esophagus was mobilized circumferentially. The left and right crura was identified. Circumferentially, the hernia sac was excised and brought into the peritoneal cavity. Moderate dissection into the mediastinum was performed to release the esophagus into the abdominal cavity. The paraesophageal hiatal hernia sac was also incised and divided from the esophagus. A distal esophageal extramucosal lipoma was also identified and resected 2 cm using a vessel sealer. Care was taken to avoid any gastrotomy. The measured defect was consistent with 5 cm axial length and 4 cm in width. After dissection, the distal esophagus of 3+ cm was brought into the abdominal cavity. Once the hiatus and crura was dissected, nonabsorbable 2-0 VLOC suture was placed to reapproximate the diaphragmatic hiatus posteriorly. To buttress the repair, a [place] Biopatch A was prepared along the back table and cut in half of a bautista-hole fashion as to reinforce the repair as an underlay. The mesh was placed along the crural repair and tagged using horizontal mattress sutures using 2-0 VLOC. I went to the head of the bed to perform intraoperative esophagogastroduodenoscopy and placement of a 56Fr bougie. The bougie was passed along the posterior oropharynx into the stomach to address pre-existing hypertensive upper esophageal sphincter and left for dilation for 2 minutes then removed. An Olympus gastroscope was passed through posterior oropharynx. Retroflexion of the scope confirmed a Hill grade 1 lower esophageal valve. The stomach had been desufflated. No evidence of leaks were found of the esophagus or stomach. The GI tract with desufflated This concluded the endoscopic portion of the case. The robot was undocked from the patient. I re-scrubbed into the case. All instruments and pneumoperitoneum and specimens were evacuated from the abdominal cavity. Incisions were reapproximated using 4-0 Monocryl in an interrupted subcuticular fashion. Liquid glue was applied to the skin. Local anesthetic was infiltrated in all wounds for postop analgesia. Multiple intra-abdominal films were obtained. At the end of the procedure, needle, sponge, and instrument count was verified correct by the preparatory technician. The patient had tolerated the procedure well and was taken to the postanesthesia unit in stable condition.
--- NOTE | 2020-06-14 08:20 | P.PN ---
Progress Note - Text Progress Note Date: 06/14/20 Patient seen and evaluated following surgery. She denies any pain. She is comfortable. Anticipated discharge tomorrow following esophagram. Discharge instructions reviewed prior to surgery including in the office. Follow-up in the office in 5 days.
[2020-06-14 08:58] LABS: Basophils % (A) 0 %; Eosinophils % (A) 0 %; HCT 35.3 % (34.0-46.0); HGB 11.2 gm/dL (11.4-16.0); Lymphocytes # (A) 1.4 k/uL (1.0-4.8); Lymphocytes % (A) 18 %; MCHC 31.6 g/dL (31.0-37.0); MCV 91.7 fL (80.0-100.0); Mean Platelet Volume 9.3; Monocytes # (A) 0.4 k/uL (0-1.0); Monocytes % (A) 5 %; Neutrophils # (A) 5.8 k/uL (1.3-7.7); Neutrophils % (A) 75 %; Platelet Count 214 k/uL (150-450); RBC 3.85 m/uL (3.80-5.40); RDW 14.2 % (11.5-15.5); WBC 7.7 k/uL (3.8-10.6)
[2020-06-14] MEDS ORDERED: PANTOPRAZOLE 40 MG/10 ML VIAL IV SCH (09:00)
[2020-06-14] MEDS ORDERED: amLODIPine 5 MG TAB PO SCH (09:00)
[2020-06-14] MEDS ORDERED: ENOXAPARIN 30 MG/0.3 ML SYRINGE SQ SCH (09:00)
[2020-06-14] MEDS ORDERED: RALOXIFENE 60 MG TAB PO SCH (09:00)
[2020-06-14 09:02] VITALS: BP 146/77; RESP 20; TEMP 98
[2020-06-14] MEDS: METOPROLOL TARTRATE 25 MG TAB PO SCH (09:02)
[2020-06-14 09:03] VITALS: PULSE 64
[2020-06-14 09:17] LABS: African American GFR (CKD) >90 (>60 ml/min/1.73 sqM); Anion Gap 5 mmol/L; Blood Urea Nitrogen 17 mg/dL (7-17); Carbon Dioxide 27 mmol/L (22-30); Chloride 105 mmol/L (98-107); Magnesium 1.7 mg/dL (1.6-2.3); Non-African American GFR(CKD) >90 (>60 ml/min/1.73 sqM); Phosphorus 3.1 mg/dL (2.5-4.5); Potassium 3.8 mmol/L (3.5-5.1); Sodium 137 mmol/L (137-145)
--- NOTE | 2020-06-14 12:25 | P.DS ---
Providers Date of admission: 06/14/20 10:22 Attending physician: Kacy Acuña Primary care physician: [facility] Course: Patient underwent elective hiatal hernia repair yesterday. Doing well today. Minimal pain. Tolerating liquids. Upper GI normal. We'll discharge. Follow- up with Dr. Escamilla. Plan - Discharge Summary Discharge Rx Participant: No New Discharge Prescriptions: New bisacodyL [Dulcolax] 5 mg PO DAILY PRN #10 tablet.dr PRN Reason: Constipation Simethicone 40 mg/0.6 ml Drops [Mylicon Drops] 40 mg PO PCHS PRN #30 ml PRN Reason: Gas Acetaminophen Oral Susp [Tylenol Oral Susp] 500 mg PO Q4-6H PRN #400 ml PRN Reason: Pain Ondansetron Odt [Zofran Odt] 4 mg PO Q8HR PRN #9 tab PRN Reason: Nausea Continue predniSONE 5 mg PO QAM Raloxifene HCl 60 mg PO DAILY Potassium Chloride ER [K-Dur 20] 20 meq PO BID Montelukast [Singulair] 10 mg PO HS hydroCHLOROthiazide 25 mg PO Q2D Felodipine [Felodipine ER] 5 mg PO QAM Aspirin [Adult Low Dose Aspirin EC] 81 mg PO DAILY Albuterol Inhaler (Mhu) [Ventolin Hfa Inhaler (Mhu)] 2 puff INHALATION Q6H PRN PRN Reason: Bronchospasm Latanoprost Ophth [Xalatan 0.005%] 1 drops BOTH EYES HS Beclomethasone Dip 80 Mcg/Puff [Qvar 80 mcg] 2 puff INHALATION BID Carboxymethylcellulose Sodium [Refresh Tears] 1 drop BOTH EYES BID Esomeprazole Magnesium 40 mg PO DAILY Metoprolol Tartrate [Lopressor] 25 mg PO BID Nebulizer(Unknown) 1 applicate IH DIRECTED PRN PRN Reason: sob Discharge Medication List Albuterol Inhaler (Mhu) [Ventolin Hfa Inhaler (Mhu)] 2 puff INHALATION Q6H PRN 07/15/17 [History] Aspirin [Adult Low Dose Aspirin EC] 81 mg PO DAILY 07/15/17 [History] Felodipine [Felodipine ER] 5 mg PO QAM 07/15/17 [History] Montelukast [Singulair] 10 mg PO HS 07/15/17 [History] Potassium Chloride ER [K-Dur 20] 20 meq PO BID 07/15/17 [History] Raloxifene HCl 60 mg PO DAILY 07/15/17 [History] hydroCHLOROthiazide 25 mg PO Q2D 07/15/17 [History] predniSONE 5 mg PO QAM 07/15/17 [History] Beclomethasone Dip 80 Mcg/Puff [Qvar 80 mcg] 2 puff INHALATION BID 09/05/18 [History] Latanoprost Ophth [Xalatan 0.005%] 1 drops BOTH EYES HS 09/05/18 [History] Carboxymethylcellulose Sodium [Refresh Tears] 1 drop BOTH EYES BID 09/03/19 [History] Esomeprazole Magnesium 40 mg PO DAILY 09/03/19 [History] Metoprolol Tartrate [Lopressor] 25 mg PO BID 06/11/20 [History] Nebulizer(Unknown) 1 applicate IH DIRECTED PRN 06/11/20 [History] Acetaminophen Oral Susp [Tylenol Oral Susp] 500 mg PO Q4-6H PRN #400 ml 06/14/20 [Rx] Ondansetron Odt [Zofran Odt] 4 mg PO Q8HR PRN #9 tab 06/14/20 [Rx] Simethicone 40 mg/0.6 ml Drops [Mylicon Drops] 40 mg PO PCHS PRN #30 ml 06/14/20 [Rx] bisacodyL [Dulcolax] 5 mg PO DAILY PRN #10 tablet. 06/14/20 [Rx] Follow up Appointment(s)/Referral(s): Kacy Acuña MD [STAFF PHYSICIAN] - 06/17/20 Patient Instructions/Handouts: Laparoscopic Hiatal Hernia Repair (GEN) Activity/Diet/Wound Care/Special Instructions: Liquid diet only. No carbonated beverages. No straws. No lifting over 4 pounds in 4 weeks, July 13. May shower. No bath tub soaks for 2 weeks until June 27. May take [id number] Tylenol for pain. Do not remove scopolamine patch for 3 days, if present
[2020-06-14 13:18] VITALS: BMI 25.8
== END 2020-06-14 13:46 | disposition home or self-care (01) ==
LOC: OR 12:20 → 6PED 18:39 → OR 06-14 09:58 → 6PED 06-14 10:22
PROVIDERS: ADMIT Surgery Plastic and Reconstructive Surgery; ATTEND Surgery Plastic and Reconstructive Surgery
DX: K44.0 Diaphragmatic hernia with obstruction, without gangrene (principal); K66.0 Peritoneal adhesions (postprocedural) (postinfection); D17.5 Benign lipomatous neoplasm of intra-abdominal organs; K21.9 Gastro-esophageal reflux disease without esophagitis; I10 Essential (primary) hypertension; J45.20 Mild intermittent asthma, uncomplicated; H40.9 Unspecified glaucoma; M19.042 Primary osteoarthritis, left hand; M19.041 Primary osteoarthritis, right hand; M19.072 Primary osteoarthritis, left ankle and foot; M19.071 Primary osteoarthritis, right ankle and foot; R32 Unspecified urinary incontinence; F41.9 Anxiety disorder, unspecified; F32.9 Major depressive disorder, single episode, unspecified; Z88.0 Allergy status to penicillin; Z79.51 Long term (current) use of inhaled steroids; Z79.899 Other long term (current) drug therapy; Z79.52 Long term (current) use of systemic steroids; Z79.810 Long term (current) use of selective estrogen receptor modulators (SERMs); Z79.82 Long term (current) use of aspirin; Z88.5 Allergy status to narcotic agent; Z86.19 Personal history of other infectious and parasitic diseases; Z86.69 Personal history of other diseases of the nervous system and sense organs; Z90.49 Acquired absence of other specified parts of digestive tract; Z98.890 Other specified postprocedural states; Z96.653 Presence of artificial knee joint, bilateral; Z98.41 Cataract extraction status, right eye; Z98.42 Cataract extraction status, left eye; Z87.898 Personal history of other specified conditions; Z80.6 Family history of leukemia
CPT/HCPCS: 94640 ×2; 80051; 80053; 82310; 82565; 83735; 84100; 84520; 85025 ×2; 74210; 43282; G0378; C1781; J2250; J1644; J1100; J2710; J2765 ×2; J0690 ×2; J2405 ×2; J2001; J3010; J1650; J0131 ×2; J1885; J2370; J2704; C9113 ×2; J1170; Q9967

== ENCOUNTER 2020-10-16 09:51 | Day surgery (SDC) | payer MEDICARE ==
[2020-10-14 15:11] VITALS: BMI 23.6
[~2020-10-16 09:51] MED LIST changes: -ACETAMINOPHEN TAB 500 MG TAB PO STA; -CHLORHEXIDINE GLUCONATE 15 ML CUP MUCOUS MEM ONE; -DEXAMETHASONE SOD PHOSPHATE 10 MG/ML 1 ML VIAL IV ONE; -HEPARIN SODIUM,PORCINE 5,000 UNIT/ML 1 ML VIAL SQ ONE; +LACTATED RINGERS 1,000 ML IV SCH; -MIDAZOLAM 2 MG/2 ML VIAL IV PRN; -ONDANSETRON 4 MG/2 ML VIAL IVP ONE; -PANTOPRAZOLE 40 MG/10 ML VIAL IV STA; -metroNIDAZOLE-NS PMX 500 MG in SALINE 1 100ML.BAG IVPB ONE
[2020-10-16 10:52] VITALS: TEMP 97.2
--- NOTE | 2020-10-16 11:31 | P.GSHP ---
History of Present Illness H&P Date: 10/16/20 CHIEF COMPLAINT: GERD HISTORY OF PRESENT ILLNESS: The patient is a 75-year-old female who presents reports gastroesophageal reflux disease. Upper endoscopy was offered for further evaluation and management. PAST MEDICAL HISTORY: Please see list. PAST SURGICAL HISTORY: Please see list. MEDICATIONS: Please see list. ALLERGIES: Please see list. SOCIAL HISTORY: No illicit drug use FAMILY HISTORY: No reports of Crohn disease or ulcerative colitis. REVIEW OF ORGAN SYSTEMS: CONSTITUTIONAL: No reports of fevers or chills. GI: Denies any blood in stools or constipation. PHYSICAL EXAM: VITAL SIGNS: Stable GENERAL: Well-developed and pleasant in no acute distress. HEENT: No scleral icterus. Extraocular movements grossly intact. Moist buccal mucosa. NECK: Supple without lymphadenopathy. CHEST: Unlabored respirations. Equal bilateral excursions. CARDIOVASCULAR: Regular rate and rhythm. Distal 2+ pulses. ABDOMEN: Soft, nondistended. MUSCULOSKELETAL: No clubbing, cyanosis, or edema. ASSESSMENT: 1. Gastroesophageal reflux disease PLAN: 1. Recommend proceeding with an upper endoscopy Past Medical History Past Medical History: Asthma, Eye Disorder, GERD/Reflux, Hypertension, Osteoarthritis (OA) Additional Past Medical History / Comment(s): glaucoma, hx migraines, hiatal hernia, arthritis in hands and feet, "leaky bladder" History of Any Multi-Drug Resistant Organisms: ESBL Date of last positivie culture/infection: 08/12/20 MDRO Source:: URINE ESBL Past Surgical History: Bowel Resection, Breast Surgery, Joint Replacement, Orthopedic Surgery Additional Past Surgical History / Comment(s): monae knee replacement, rt knee arthroscopy, breast biopsy, monae cataracts Past Anesthesia/Blood Transfusion Reactions: Motion Sickness Smoking Status: Never smoker - Past Family History Brother(s) Family Medical History: Cancer Additional Family Medical History / Comment(s): leukemia Medications and Allergies Home Medications Medication Instructions Recorded Confirmed Type Albuterol Inhaler (Mhu) [Ventolin 2 puff INHALATION Q6H PRN 07/15/17 10/16/20 History Hfa Inhaler (Mhu)] Aspirin [Adult Low Dose Aspirin EC] 81 mg PO DAILY 07/15/17 10/16/20 History Felodipine [Felodipine ER] 5 mg PO QAM 07/15/17 10/16/20 History Montelukast [Singulair] 10 mg PO HS 07/15/17 10/16/20 History Potassium Chloride ER [K-Dur 20] 20 meq PO BID 07/15/17 10/16/20 History hydroCHLOROthiazide 25 mg PO Q2D 07/15/17 10/16/20 History predniSONE 5 mg PO QAM 07/15/17 10/16/20 History Beclomethasone Dip 80 Mcg/Puff 2 puff INHALATION BID 09/05/18 10/16/20 History [Qvar 80 mcg] Latanoprost Ophth [Xalatan 0.005%] 1 drops BOTH EYES HS 09/05/18 10/16/20 History Carboxymethylcellulose Sodium 1 drop BOTH EYES BID 09/03/19 10/16/20 History [Refresh Tears] Esomeprazole Magnesium 40 mg PO DAILY 09/03/19 10/16/20 History Metoprolol Tartrate [Lopressor] 25 mg PO BID 06/11/20 10/16/20 History Nebulizer(Unknown) 1 applicate IH DIRECTED PRN 06/11/20 10/16/20 History Acetaminophen Oral Susp [Tylenol 500 mg PO Q4-6H PRN #400 ml 06/14/20 10/16/20 Rx Oral Susp] Allergies Allergy/AdvReac Type Severity Reaction Status Date / Time meperidine [From Demerol] Allergy Nausea & Verified 10/14/20 14:48 Vomiting Penicillins Allergy Rash/Hives Verified 10/14/20 14:48 codeine AdvReac Nausea & Verified 10/14/20 14:48 Vomiting Surgical - Exam Vital Signs Temp Pulse Resp BP Pulse Ox 97.2 F L 66 16 152/65 96 10/16/20 10:47 10/16/20 10:47 10/16/20 10:47 10/16/20 10:47 10/16/20 10:47
[2020-10-16] MEDS ORDERED: LIDOCAINE 1% INJ 10MG/ML (20 ML MDV) ONE (12:06)
[2020-10-16] MEDS ORDERED: PROPOFOL 10 MG/ML 20 ML VIAL IV ONE (12:06)
--- NOTE | 2020-10-16 12:30 | P.PCN ---
Date of Procedure: 10/16/20 Description of Procedure: PREOPERATIVE DIAGNOSIS: Dysphagia. Gastroesophageal reflux disease POSTOPERATIVE DIAGNOSIS: Dysphagia. Gastroesophageal reflux disease Recurrent diaphragmatic hiatal hernia Sun's esophagus OPERATION: Esophagogastroduodenoscopy with rigid dilator over the guidewire 54 Fr. Esophagogastroduodenoscopy with cold forceps biopsies along the gastroesophageal junction/distal esophagus SURGEON: Kacy Acuña MD ANESTHESIA: MAC. INDICATIONS: The patient is a 75-year-old female who presents with a history of dysphagia. Benefits and risks of the procedure were described. Informed consent was obtained. DESCRIPTION: The patient was brought into the endoscopy suite and laid in the left lateral decubitus position. After a timeout was confirmed, the procedure was initiated. An Olympus gastroscope was passed and the stomach was entered. Mild gastritis was identified. The scope was advanced to the duodenum which was unremarkable. Retroflexion the scope confirmed a Hill grade 3 lower esophageal valve. Next using an Lao rigid dilator, a guidewire was placed through the pediatric gastroscope. Next the scope was withdrawn. A 54-Georgian rigid Lao dilator was passed carefully along the posterior oropharynx to 50 cm and left in place for 2-3 minutes stretch. The dilator was withdrawn including the guidewire. The scope was reentered along the posterior oropharynx without mucosal defect of the upper esophageal sphincter. Next, cold biopsy forceps w ere obtained for features of Sun's esophagus along the distal esophagus/gastroesophageal junction No full-thickness injury was encountered. The GI tract was desufflated. The patient tolerated the procedure well. FINDINGS: Squamocolumnar junction with features of Sun's esophagus and biopsies obtained, 33 cm from the incisors Lao rigid dilator 54-Georgian completed. Recurrent hiatus hernia, 2 cm Hill grade 3 lower esophageal valve. LA grade D esophagitis. RECOMMENDATIONS: Continue antacids for Sun's esophagus Plan - Discharge Summary Discharge Rx Participant: Yes New Discharge Prescriptions: Continue predniSONE 5 mg PO QAM Potassium Chloride ER [K-Dur 20] 20 meq PO BID Montelukast [Singulair] 10 mg PO HS hydroCHLOROthiazide 25 mg PO Q2D Felodipine [Felodipine ER] 5 mg PO QAM Aspirin [Adult Low Dose Aspirin EC] 81 mg PO DAILY Albuterol Inhaler (Mhu) [Ventolin Hfa Inhaler (Mhu)] 2 puff INHALATION Q6H PRN PRN Reason: Bronchospasm Latanoprost Ophth [Xalatan 0.005%] 1 drops BOTH EYES HS Beclomethasone Dip 80 Mcg/Puff [Qvar 80 mcg] 2 puff INHALATION BID Carboxymethylcellulose Sodium [Refresh Tears] 1 drop BOTH EYES BID Esomeprazole Magnesium 40 mg PO DAILY Metoprolol Tartrate [Lopressor] 25 mg PO BID Nebulizer(Unknown) 1 applicate IH DIRECTED PRN PRN Reason: sob Acetaminophen Oral Susp [Tylenol] 500 mg PO Q4-6H PRN #400 ml PRN Reason: Pain Discharge Medication List Albuterol Inhaler (Mhu) [Ventolin Hfa Inhaler (Mhu)] 2 puff INHALATION Q6H PRN 07/15/17 [History] Aspirin [Adult Low Dose Aspirin EC] 81 mg PO DAILY 07/15/17 [History] Felodipine [Felodipine ER] 5 mg PO QAM 07/15/17 [History] Montelukast [Singulair] 10 mg PO HS 07/15/17 [History] Potassium Chloride ER [K-Dur 20] 20 meq PO BID 07/15/17 [History] hydroCHLOROthiazide 25 mg PO Q2D 07/15/17 [History] predniSONE 5 mg PO QAM 07/15/17 [History] Beclomethasone Dip 80 Mcg/Puff [Qvar 80 mcg] 2 puff INHALATION BID 09/05/18 [History] Latanoprost Ophth [Xalatan 0.005%] 1 drops BOTH EYES HS 09/05/18 [History] Carboxymethylcellulose Sodium [Refresh Tears] 1 drop BOTH EYES BID 09/03/19 [History] Esomeprazole Magnesium 40 mg PO DAILY 09/03/19 [History] Metoprolol Tartrate [Lopressor] 25 mg PO BID 06/11/20 [History] Nebulizer(Unknown) 1 applicate IH DIRECTED PRN 06/11/20 [History] Acetaminophen Oral Susp [Tylenol] 500 mg PO Q4-6H PRN #400 ml 06/14/20 [Rx] Follow up Appointment(s)/Referral(s): Kacy Acuña MD [STAFF PHYSICIAN] - 10/21/20 Patient Instructions/Handouts: Esophageal Dilation (GEN) Activity/Diet/Wound Care/Special Instructions: Diet as tolerated. Continue omeprazole or Protonix Discharge Disposition: HOME SELF-CARE
[2020-10-16 12:55] VITALS: BP 157/68; PULSE 70; RESP 16
== END 2020-10-16 13:08 | disposition home or self-care (01) ==
LOC: ORWHC2ENDO 09:51
PROVIDERS: ATTEND Surgery Plastic and Reconstructive Surgery
DX: K20.0 Eosinophilic esophagitis (principal); K21.9 Gastro-esophageal reflux disease without esophagitis; J45.909 Unspecified asthma, uncomplicated; I10 Essential (primary) hypertension; H40.9 Unspecified glaucoma; G43.909 Migraine, unspecified, not intractable, without status migrainosus; K44.9 Diaphragmatic hernia without obstruction or gangrene; M19.079 Primary osteoarthritis, unspecified ankle and foot; M19.049 Primary osteoarthritis, unspecified hand; Z86.19 Personal history of other infectious and parasitic diseases; Z90.49 Acquired absence of other specified parts of digestive tract; Z96.653 Presence of artificial knee joint, bilateral; Z98.42 Cataract extraction status, left eye; Z98.41 Cataract extraction status, right eye; Z98.890 Other specified postprocedural states; Z80.6 Family history of leukemia; Z79.82 Long term (current) use of aspirin; Z79.51 Long term (current) use of inhaled steroids; Z79.52 Long term (current) use of systemic steroids; Z79.899 Other long term (current) drug therapy; Z88.5 Allergy status to narcotic agent; Z88.0 Allergy status to penicillin; K22.70 Barrett's esophagus without dysplasia
CPT/HCPCS: 88305; 88312; 88342; 43239; 43248; J2001; J2704; 43249

== ENCOUNTER → 2020-12-25 | Outpatient (CLI) | payer MEDICARE ==
--- NOTE | 2020-12-26 12:03 | MM ---
Reason for exam: screening (asymptomatic). Last mammogram was performed 1 year and 4 months ago. History: Patient is postmenopausal and had first child at age 33. Benign MG stereo VAD BX RT of the right breast, September 15, 2018. Took estrogen for 8 years beginning at age 38. Physical Findings: A clinical breast exam by your physician is recommended on an annual basis and results should be correlated with mammographic findings. MG 3D Screening Mammo W/Cad Bilateral CC and MLO view(s) were taken. Prior study comparison: September 07, 2019, bilateral MG 3d screening mammo w/cad. April 24, 2019, right breast MG 3d diag mammo w/cad RT. The breast tissue is heterogeneously dense. This may lower the sensitivity of mammography. Previous mammotome biopsy in the right breast. There is chronic nodularity in the right breast medially. A few punctate calcifications right anterior upper outer quadrant are typically benign. No significant changes when compared with prior studies. ASSESSMENT: Benign, BI-RAD 2 RECOMMENDATION: Routine screening mammogram of both breasts in 1 year.
== END | disposition home or self-care (01) ==
LOC: RADMAMWWP 07:22
PROVIDERS: ATTEND Family Medicine
DX: Z12.31 Encounter for screening mammogram for malignant neoplasm of breast (principal)
CPT/HCPCS: 77063; 77067

== ENCOUNTER → 2021-03-05 | Outpatient (CLI) | payer MEDICARE ==
--- NOTE | 2021-03-05 09:39 | FL ---
EXAMINATION TYPE: FL barium swallow DATE OF EXAM: 03/05/2021 CLINICAL HISTORY: Patient reports history of hiatal hernia repair 6 months ago now with dyskinesia of the midsternum TECHNIQUE: A double contrast esophagram is performed utilizing air and barium. A total of 55 second s of fluoroscopic time was utilized during procedure and 77 images obtained. COMPARISON: 06/14/2020 FINDINGS: The esophagus shows normal motility and emptying into the stomach. No evidence of hiatal h ernia or stricture noted. No significant gastroesophageal reflux was seen during real time performanc e of this study. IMPRESSION: No significant abnormality is seen to account for patient's symptoms.
== END | disposition home or self-care (01) ==
LOC: RADUSWWP 07:54
PROVIDERS: ATTEND Surgery Plastic and Reconstructive Surgery
DX: G24.9 Dystonia, unspecified (principal); Z87.19 Personal history of other diseases of the digestive system
CPT/HCPCS: 74220

== ENCOUNTER 2021-07-20 10:21 | Emergency (ER) | payer MEDICARE ==
[2021-07-20] MEDS ORDERED: ACETAMINOPHEN TAB 500 MG TAB PO STA (11:11)
[2021-07-20] MEDS ORDERED: SODIUM CHLORIDE 0.9% 500 ML 500 ML IV STA (11:12)
--- NOTE | 2021-07-20 11:14 | ED ---
General Adult HPI - General Chief complaint: Shortness of Breath Stated complaint: cough, fever Time Seen by Provider: 07/20/21 10:58 Source: patient, RN notes reviewed Mode of arrival: ambulatory Limitations: no limitations - History of Present Illness Initial comments: 75-year-old female with a past medical history of asthma, GERD, hypertension, migraines presents to the emergency room for a chief complaint of cough. Patient states she has had a cough for about a week now. She does seems to be getting worse instead of better. She sometimes gets into coughing spells and it is hard to catch her breath. Sometimes feels short of breath. Denies chest pain. Admits to chills.Patient has no other complaints at this time including chest pain, abdominal pain, nausea or vomiting, headache, or visual changes. - Related Data Home Medications Medication Instructions Recorded Confirmed Albuterol Inhaler (Mhu) [Ventolin 2 puff INHALATION Q6H PRN 07/15/17 10/16/20 Hfa Inhaler (Mhu)] Aspirin [Adult Low Dose Aspirin EC] 81 mg PO DAILY 07/15/17 10/16/20 Felodipine [Felodipine ER] 5 mg PO QAM 07/15/17 10/16/20 Montelukast [Singulair] 10 mg PO HS 07/15/17 10/16/20 Potassium Chloride ER [K-Dur 20] 20 meq PO BID 07/15/17 10/16/20 hydroCHLOROthiazide 25 mg PO Q2D 07/15/17 10/16/20 predniSONE 5 mg PO QAM 07/15/17 10/16/20 Beclomethasone Dip 80 Mcg/Puff 2 puff INHALATION BID 09/05/18 10/16/20 [Qvar 80 mcg] Latanoprost Ophth [Xalatan 0.005%] 1 drops BOTH EYES HS 09/05/18 10/16/20 Carboxymethylcellulose Sodium 1 drop BOTH EYES BID 09/03/19 10/16/20 [Refresh Tears] Esomeprazole Magnesium 40 mg PO DAILY 09/03/19 10/16/20 Metoprolol Tartrate [Lopressor] 25 mg PO BID 06/11/20 10/16/20 Nebulizer(Unknown) 1 applicate IH DIRECTED PRN 06/11/20 10/16/20 Previous Rx's Medication Instructions Recorded Acetaminophen Oral Susp [Tylenol] 500 mg PO Q4-6H PRN #400 ml 06/14/20 Simethicone [Gas-X] 125 mg PO AC-TID PRN #20 capsule 10/21/20 Simethicone 40 mg/0.6 ml Drops 40 mg PO Q6HR PRN #30 ml 02/10/21 [Mylicon Drops] Benzonatate [Tessalon Perles] 200 mg PO Q8H PRN #15 capsule 07/20/21 guaiFENesin [Mucinex] 600 mg PO Q12HR PRN #20 tab 07/20/21 Allergies Allergy/AdvReac Type Severity Reaction Status Date / Time meperidine [From Demerol] Allergy Nausea & Verified 07/20/21 10:57 Vomiting Penicillins Allergy Rash/Hives Verified 07/20/21 10:57 codeine AdvReac Nausea & Verified 07/20/21 10:57 Vomiting Review of Systems ROS Statement: Those systems with pertinent positive or pertinent negative responses have been documented in the HPI. ROS Other: All systems not noted in ROS Statement are negative. Past Medical History Past Medical History: Asthma, Eye Disorder, GERD/Reflux, Hypertension, Osteoarthritis (OA) Additional Past Medical History / Comment(s): glaucoma, hx migraines, hiatal hernia, arthritis in hands and feet, "leaky bladder" History of Any Multi-Drug Resistant Organisms: ESBL Date of last positivie culture/infection: 10/22/20 MDRO Source:: URINE ESBL Past Surgical History: Bowel Resection, Breast Surgery, Joint Replacement, Or thopedic Surgery Additional Past Surgical History / Comment(s): monae knee replacement, rt knee arthroscopy, breast biopsy, monae cataracts Past Anesthesia/Blood Transfusion Reactions: Motion Sickness Past Psychological History: Anxiety, Depression Smoking Status: Never smoker Past Alcohol Use History: None Reported Past Drug Use History: None Reported - Past Family History Brother(s) Family Medical History: Cancer Additional Family Medical History / Comment(s): leukemia General Exam Limitations: no limitations General appearance: alert, in no apparent distress Head exam: Present: atraumatic Eye exam: Present: normal appearance, PERRL, EOMI. Absent: scleral icterus, conjunctival injection ENT exam: Present: normal exam, mucous membranes moist Neck exam: Present: normal inspection, full ROM. Absent: tenderness Respiratory exam: Present: normal lung sounds bilaterally. Absent: respiratory distress, wheezes Cardiovascular Exam: Present: regular rate, normal rhythm, normal heart sounds GI/Abdominal exam: Present: soft, normal bowel sounds. Absent: distended, tenderness Neurological exam: Present: alert Course Vital Signs 07/20/21 10:55 Temperature 100.0 F H Pulse Rate 111 H Respiratory 20 Rate Blood Pressure 133/78 O2 Sat by Pulse 95 Oximetry Medical Decision Making - Medical Decision Making vitals are stable. Patient is well-appearing. Patient does have a cough noted as well as congestion. Laboratory evaluation unremarkable. CBC unremarkable. Minimal dehydration, patient given fluids. Coronavirus is negative. Chest x- ray shows no acute process. Patient likely has viral upper respiratory infection. At this time patient can be discharged home to continue her breathing treatments. She will continue her steroid as well. If she has any worsening symptoms she will return to the emergency room. X-ray images reviewed by myself and Dr. Milan - Lab Data Result diagrams: 07/20/21 11:29 07/20/21 11:29 Lab Results 07/20/21 07/20/21 07/20/21 Range/Units 11:29 11:29 11:29 WBC 5.7 (3.8-10.6) k/uL RBC 4.59 (3.80-5.40) m/uL Hgb 13.8 (11.4-16.0) gm/dL Hct 41.1 (34.0-46.0) % MCV 89.5 (80.0-100.0) fL MCH 30.1 (25.0-35.0) pg MCHC 33.7 (31.0-37.0) g/dL RDW 14.2 (11.5-15.5) % Plt Count 205 (150-450) k/uL MPV 8.4 Neutrophils % 66 % Lymphocytes % 17 % Monocytes % 7 % Eosinophils % 7 % Basophils % 1 % Neutrophils # 3.8 (1.3-7.7) k/uL Lymphocytes # 1.0 (1.0-4.8) k/uL Monocytes # 0.4 (0-1.0) k/uL Eosinophils # 0.4 (0-0.7) k/uL Basophils # 0.1 (0-0.2) k/uL Sodium 132 L (137-145) mmol/L Potassium 3.6 (3.5-5.1) mmol/L Chloride 100 (98-107) mmol/L Carbon Dioxide 23 (22-30) mmol/L Anion Gap 9 mmol/L BUN 22 H (7-17) mg/dL Creatinine 0.70 (0.52-1.04) mg/dL Est GFR (CKD-EPI)AfAm >90 (>60 ml/min/1.73 sqM) Est GFR (CKD-EPI)NonAf 84 (>60 ml/min/1.73 sqM) Glucose 140 H (74-99) mg/dL Calcium 9.1 (8.4-10.2) mg/dL Total Bilirubin 1.4 H (0.2-1.3) mg/dL AST 26 (14-36) U/L ALT 15 (4-34) U/L Alkaline Phosphatase 48 (38-126) U/L Total Protein 7.1 (6.3-8.2) g/dL Albumin 3.9 (3.5-5.0) g/dL Coronavirus (PCR) Not Detected (Not Detectd) Disposition Clinical Impression: Cough Disposition: HOME SELF-CARE Condition: Good Instructions (If sedation given, give patient instructions): Acute Cough (ED) Additional Instructions: Please take medications as directed. Please follow-up with your doctor in one to 2 days. Return to the emergency room for any worsening or changing symptoms. Prescriptions: guaiFENesin [Mucinex] 600 mg PO Q12HR PRN #20 tab PRN Reason: Congestion Benzonatate [Tessalon Perles] 200 mg PO Q8H PRN #15 capsule PRN Reason: Cough Is patient prescribed a controlled substance at d/c from ED?: No Referrals: Diana Anderson MD [Primary Care Provider] - 1-2 days Time of Disposition: 13:06
[2021-07-20 11:52] LABS: Basophils # (A) 0.1 k/uL (0-0.2); Basophils % (A) 1 %; Eosinophils # (A) 0.4 k/uL (0-0.7); Eosinophils % (A) 7 %; HCT 41.1 % (34.0-46.0); HGB 13.8 gm/dL (11.4-16.0); Lymphocytes % (A) 17 %; MCH 30.1 pg (25.0-35.0); MCHC 33.7 g/dL (31.0-37.0); MCV 89.5 fL (80.0-100.0); Mean Platelet Volume 8.4; Monocytes # (A) 0.4 k/uL (0-1.0); Monocytes % (A) 7 %; Neutrophils # (A) 3.8 k/uL (1.3-7.7); Neutrophils % (A) 66 %; Platelet Count 205 k/uL (150-450); RBC 4.59 m/uL (3.80-5.40); RDW 14.2 % (11.5-15.5); WBC 5.7 k/uL (3.8-10.6)
[2021-07-20 12:07] LABS: ALT 15 U/L (4-34); AST 26 U/L (14-36); African American GFR (CKD) >90 (>60 ml/min/1.73 sqM); Albumin 3.9 g/dL (3.5-5.0); Alkaline Phosphatase 48 U/L (38-126); Blood Urea Nitrogen 22 mg/dL (7-17); Calcium 9.1 mg/dL (8.4-10.2); Carbon Dioxide 23 mmol/L (22-30); Glucose 140 mg/dL (74-99); Non-African American GFR(CKD) 84 (>60 ml/min/1.73 sqM); Potassium 3.6 mmol/L (3.5-5.1); Sodium 132 mmol/L (137-145); Total Bilirubin 1.4 mg/dL (0.2-1.3); Total Protein 7.1 g/dL (6.3-8.2)
[2021-07-20 12:18] LABS: Anion Gap 9 mmol/L; Chloride 100 mmol/L (98-107)
--- NOTE | 2021-07-20 12:32 | XR ---
EXAMINATION TYPE: XR chest 2V DATE OF EXAM: 07/20/2021 COMPARISON: NONE HISTORY: Cough, fever, shortness of breath TECHNIQUE: Frontal and lateral views of the chest are obtained. FINDINGS: There is no focal air space opacity, pleural effusion, or pneumothorax seen. The cardiac silhouette size is within normal limits. There is elevation of the right hemidiaphragm. The aorta is dense. Thoracic spondylosis is noted. The osseous structures are intact. IMPRESSION: No acute cardiopulmonary process.
[2021-07-20 13:33] VITALS: BP 125/70; PULSE 96; RESP 18; TEMP 98.4
== END 2021-07-20 13:52 | disposition home or self-care (01) ==
LOC: EC 10:21
DX: R05.1 Acute cough (principal); Z20.822 Contact with and (suspected) exposure to COVID-19; I10 Essential (primary) hypertension; J45.909 Unspecified asthma, uncomplicated; K21.9 Gastro-esophageal reflux disease without esophagitis; Z79.51 Long term (current) use of inhaled steroids; Z79.52 Long term (current) use of systemic steroids; Z79.82 Long term (current) use of aspirin; Z79.899 Other long term (current) drug therapy; Z88.0 Allergy status to penicillin; Z88.5 Allergy status to narcotic agent
CPT/HCPCS: 36415; 71046; 80053; 85025; 87635; 99284

== ENCOUNTER 2021-07-29 11:01 | Inpatient (IN) | payer MEDICARE ==
[2021-07-29] MEDS ORDERED: ERTAPENEM 1 GM in SODIUM CHLORIDE 0.9% 50 ML IVPB STA (12:30)
[2021-07-29 12:54] LABS: Appearance,Urine Clear (Clear); Bilirubin,Urine Negative (Negative); Blood,Urine Negative (Negative); Color,Urine Yellow; Glucose,Urine (UA) Negative (Negative); Ketones,Urine Negative (Negative); Leukocyte Esterase,Urine Small (Negative); Mucus,Urine Rare /hpf; Nitrite,Urine Negative (Negative); Protein,Urine Negative (Negative); RBC,Urine <1 /hpf (0-5); Specific Gravity,Urine 1.018 (1.001-1.035); Squamous Epithelial Cell,Urine <1 /hpf (0-4); Urobilinogen,Urine <2.0 mg/dL (<2.0); WBC,Urine 3 /hpf (0-5)
--- NOTE | 2021-07-29 12:56 | ED ---
Female Urogenital HPI - General Chief complaint: Urogenital Stated complaint: UTI Time Seen by Provider: 07/29/21 12:00 Source: patient Mode of arrival: ambulatory - History of Present Illness Initial comments: 75-year-old female with recurrent UTIs presents emergency Department with reported burning, blood and frequency of urination. Also has bilateral CVA tenderness. She was seen on the third at her primary care office and was diagnosed with a urinary tract infection. Started on Macrobid. States that her symptoms have not improved at all. She only has one day left of the Macrobid. She spoke to her primary care office who spoke to Dr. Lew. Patient was told that no oral antibiotic was going to fix her infection that she had come to the hospital for IV antibiotics. She denies fevers changes in her bowel habits. Denies anterior abdominal pain. No other alleviating, precipitating or modifying factors - Related Data Home Medications Medication Instructions Recorded Confirmed Albuterol Inhaler (Mhu) [Ventolin 2 puff INHALATION Q6H PRN 07/15/17 10/16/20 Hfa Inhaler (Mhu)] Aspirin [Adult Low Dose Aspirin EC] 81 mg PO DAILY 07/15/17 10/16/20 Felodipine [Felodipine ER] 5 mg PO QAM 07/15/17 10/16/20 Montelukast [Singulair] 10 mg PO HS 07/15/17 10/16/20 Potassium Chloride ER [K-Dur 20] 20 meq PO BID 07/15/17 10/16/20 hydroCHLOROthiazide 25 mg PO Q2D 07/15/17 10/16/20 predniSONE 5 mg PO QAM 07/15/17 10/16/20 Beclomethasone Dip 80 Mcg/Puff 2 puff INHALATION BID 09/05/18 10/16/20 [Qvar 80 mcg] Latanoprost Ophth [Xalatan 0.005%] 1 drops BOTH EYES HS 09/05/18 10/16/20 Carboxymethylcellulose Sodium 1 drop BOTH EYES BID 09/03/19 10/16/20 [Refresh Tears] Esomeprazole Magnesium 40 mg PO DAILY 09/03/19 10/16/20 Metoprolol Tartrate [Lopressor] 25 mg PO BID 06/11/20 10/16/20 Nebulizer(Unknown) 1 applicate IH DIRECTED PRN 06/11/20 10/16/20 Previous Rx's Medication Instructions Recorded Acetaminophen Oral Susp [Tylenol] 500 mg PO Q4-6H PRN #400 ml 06/14/20 Simethicone [Gas-X] 125 mg PO AC-TID PRN #20 capsule 10/21/20 Simethicone 40 mg/0.6 ml Drops 40 mg PO Q6HR PRN #30 ml 02/10/21 [Mylicon Drops] Benzonatate [Tessalon Perles] 200 mg PO Q8H PRN #15 capsule 07/20/21 guaiFENesin [Mucinex] 600 mg PO Q12HR PRN #20 tab 07/20/21 Allergies Allergy/AdvReac Type Severity Reaction Status Date / Time meperidine [From Demerol] Allergy Nausea & Verified 07/29/21 11:45 Vomiting Penicillins Allergy Rash/Hives Verified 07/29/21 11:45 codeine AdvReac Nausea & Verified 07/29/21 11:45 Vomiting Review of Systems ROS Statement: Those systems with pertinent positive or pertinent negative responses have been documented in the HPI. ROS Other: All systems not noted in ROS Statement are negative. Past Medical History Past Medical History: Asthma, Eye Disorder, GERD/Reflux, Hypertension, Osteoarthritis (OA) Additional Past Medical History / Comment(s): glaucoma, hx migraines, hiatal hernia, arthritis in hands and feet, "leaky bladder" History of Any Multi-Drug Resistant Organisms: ESBL Date of last positivie culture/infection: 07/21/21 MDRO Source:: URINE ESBL Past Surgical History: Bowel Resection, Breast Surgery, Joint Replacement, Orthopedic Surgery Additional Past Surgical History / Comment(s): monae knee replacement, rt knee arthroscopy, breast biopsy, monae cataracts Past Anesthesia/Blood Transfusion Reactions: Motion Sickness Past Psychological History: Anxiety, Depression Smoking Status: Never smoker Past Alcohol Use History: None Reported Past Drug Use History: None Reported - Past Family History Brother(s) Family Medical History: Cancer Additional Family Medical History / Comment(s): leukemia General Exam General appearance: alert, in no apparent distress Head exam: Present: atraumatic, normocephalic, normal inspection Eye exam: Present: normal appearance, PERRL, EOMI. Absent: scleral icterus, conjunctival injection, periorbital swelling ENT exam: Present: normal exam, mucous membranes moist Neck exam: Present: normal inspection. Absent: tenderness, meningismus, lymphadenopathy Respiratory exam: Present: normal lung sounds bilaterally. Absent: respiratory distress, wheezes, rales, rhonchi, stridor Cardiovascular Exam: Present: regular rate, normal rhythm, normal heart sounds. Absent: systolic murmur, diastolic murmur, rubs, gallop, clicks GI/Abdominal exam: Present: soft, normal bowel sounds. Absent: distended, tenderness, guarding, rebound, rigid Extremities exam: Present: normal inspection, full ROM, normal capillary refill. Absent: tenderness, pedal edema, joint swelling, calf tenderness Back exam: Present: CVA tenderness (R), CVA tenderness (L) Neurological exam: Present: alert, oriented X3, CN II-XII intact Psychiatric exam: Present: normal affect, normal mood Skin exam: Present: warm, dry, intact, normal color. Absent: rash Course Vital Signs 07/29/21 11:40 Temperature 98.1 F Pulse Rate 63 Respiratory 18 Rate Blood Pressure 140/74 O2 Sat by Pulse 93 L Oximetry - Reevaluation(s) Reevaluation #1: Spoke with Dr. Lew - recommends patient to be admitted for IV antibiotics and awaiting urine culture results 07/29/21 13:10 Medical Decision Making - Medical Decision Making Arrival patient is placed into hallway . A thorough history and physical exam was performed. Patient does provide a urine sample. I did review her urine culture from the second which demonstrates E. coli infection, greater than 100,000 colony units, ESBL to oral antibiotics. As the patient is still symptomatic IV is inserted laboratory studies were conducted. Invanz as ordered. Lab system returns and sample is positive for small leukocyte esterase and rare mucous. As the patient is still symptomatic I called and spoke with Dr. Lew in regards to the patient's symptoms. She denies any vaginal bleeding, discharge or itching. Recommend a pelvic exam however she refused. Dr. Lew feels that the patient is still symptomatic that she should be admitted for dose of IV antibiotics and await urine culture results. Patient agreed to this. Spoke with Dr. Sosa who agreed to admit the patient. - Lab Data Result diagrams: 07/29/21 12:56 Lab Results 11/10/21 11/10/21 Range/Units 11:53 12:56 WBC 10.4 (3.8-10.6) k/uL RBC 4.22 (3.80-5.40) m/uL Hgb 12.5 (11.4-16.0) gm/dL Hct 38.8 (34.0-46.0) % MCV 91.9 (80.0-100.0) fL MCH 29.7 (25.0-35.0) pg MCHC 32.3 (31.0-37.0) g/dL RDW 13.6 (11.5-15.5) % Plt Count 283 (150-450) k/uL MPV 8.8 Neutrophils % 76 % Lymphocytes % 16 % Monocytes % 3 % Eosinophils % 3 % Basophils % 1 % Neutrophils # 7.9 H (1.3-7.7) k/uL Lymphocytes # 1.7 (1.0-4.8) k/uL Monocytes # 0.3 (0-1.0) k/uL Eosinophils # 0.3 (0-0.7) k/uL Basophils # 0.1 (0-0.2) k/uL Urine Color Yellow Urine Appearance Clear (Clear) Urine pH 6.0 (5.0-8.0) Ur Specific [place] 1.018 (1.001-1.035) Urine Protein Negative (Negative) Urine Glucose (UA) Negative (Negative) Urine Ketones Negative (Negative) Urine Blood Negative (Negative) Urine Nitrite Negative (Negative) Urine Bilirubin Negative (Negative) Urine Urobilinogen <2.0 (<2.0) mg/dL Ur Leukocyte Esterase Small H (Negative) Urine RBC <1 (0-5) /hpf Urine WBC 3 (0-5) /hpf Ur Squamous Epith Cells <1 (0-4) /hpf Urine Mucus Rare H (None) /hpf Disposition Clinical Impression: Urinary tract infection, ESBL (extended spectrum beta-lactamase) producing bacteria infection Disposition: ADMITTED IP TO THIS HOSP Condition: Stable Is patient prescribed a controlled substance at d/c from ED?: No Referrals: Diana Anderson MD [Primary Care Provider] - 1-2 days Decision to Admit Reason: Admit from EC Decision Date: 07/29/21 Decision Time: 13:23
[2021-07-29 13:13] LABS: Basophils # (A) 0.1 k/uL (0-0.2); Basophils % (A) 1 %; Eosinophils # (A) 0.3 k/uL (0-0.7); Eosinophils % (A) 3 %; HCT 38.8 % (34.0-46.0); HGB 12.5 gm/dL (11.4-16.0); Lymphocytes # (A) 1.7 k/uL (1.0-4.8); Lymphocytes % (A) 16 %; MCH 29.7 pg (25.0-35.0); MCHC 32.3 g/dL (31.0-37.0); MCV 91.9 fL (80.0-100.0); Mean Platelet Volume 8.8; Monocytes # (A) 0.3 k/uL (0-1.0); Monocytes % (A) 3 %; Neutrophils # (A) 7.9 k/uL (1.3-7.7); Neutrophils % (A) 76 %; Platelet Count 283 k/uL (150-450); RBC 4.22 m/uL (3.80-5.40); RDW 13.6 % (11.5-15.5); WBC 10.4 k/uL (3.8-10.6)
[2021-07-29 13:22] LABS: ALT 13 U/L (4-34); AST 24 U/L (14-36); African American GFR (CKD) >90 (>60 ml/min/1.73 sqM); Albumin 3.9 g/dL (3.5-5.0); Alkaline Phosphatase 49 U/L (38-126); Anion Gap 7 mmol/L; Blood Urea Nitrogen 24 mg/dL (7-17); Calcium 9.4 mg/dL (8.4-10.2); Carbon Dioxide 24 mmol/L (22-30); Chloride 106 mmol/L (98-107); Glucose 117 mg/dL (74-99); Non-African American GFR(CKD) >90 (>60 ml/min/1.73 sqM); Potassium 4.7 mmol/L (3.5-5.1); Sodium 137 mmol/L (137-145); Total Bilirubin 0.6 mg/dL (0.2-1.3); Total Protein 7.2 g/dL (6.3-8.2)
[2021-07-29] MEDS ORDERED: NALOXONE 0.4 MG/ML 1 ML VIAL IV PRN (13:23)
--- NOTE | 2021-07-29 14:29 | P.HPIM ---
History of Present Illness This is a 75-year-old female with past medical history noted below that presented to the emergency room referred by her PCP for ESBL E. coli. Patient told me that she has been having problems with urinary frequency and feeling that she is not emptying her bladder completely for a long time. She was seen by her PCP and urine culture grew ESBL E. coli that was treated with Macrobid with no resolution of her symptoms. Patient was sent to the ER for IV antibiotic. Patient does not have any evidence of sepsis and her urinalysis is clear. I reviewed her urine culture in the past and she had 3 or 4 occasions when her urine grew ESBL E. coli in the last year. Patient is not aware of that. She never received IV antibiotic. She denies any urologic procedures or catheters placed. I did order a bladder scan to check postvoid residual in the ER showing different readings anywhere between 190 and 300ml of urine. I then asked the nurse to do a straight catheterization right after the patient urinated and approximately 500 mL of urine was in her bladder. Review of Systems Review of system: 14 points review of systems were obtained and were negative except to what were mentioned in the HPI. Past Medical History Past Medical History: Asthma, Eye Disorder, GERD/Reflux, Hypertension, Osteoarthritis (OA) Additional Past Medical History / Comment(s): glaucoma, hx migraines, hiatal hernia, arthritis in hands and feet, "leaky bladder" History of Any Multi-Drug Resistant Organisms: ESBL Date of last positivie culture/infection: 07/21/21 MDRO Source:: URINE ESBL Past Surgical History: Bowel Resection, Breast Surgery, Joint Replacement, Orthopedic Surgery Additional Past Surgical History / Comment(s): monae knee replacement, rt knee arthroscopy, breast biopsy, monae cataracts Past Anesthesia/Blood Transfusion Reactions: Motion Sickness Past Psychological History: Anxiety, Depression Smoking Status: Never smoker Past Alcohol Use History: None Reported Past Drug Use History: None Reported - Past Family History Brother(s) Family Medical History: Cancer Additional Family Medical History / Comment(s): leukemia Medications and Allergies Home Medications Medication Instructions Recorded Confirmed Type Aspirin [Adult Low Dose Aspirin EC] 81 mg PO DAILY 07/15/17 07/29/21 History Felodipine [Felodipine ER] 5 mg PO DAILY 07/15/17 07/29/21 History Montelukast [Singulair] 10 mg PO HS 07/15/17 07/29/21 History Potassium Chloride ER [K-Dur 20] 20 meq PO BID 07/15/17 07/29/21 History hydroCHLOROthiazide 25 mg PO Q48H 07/15/17 07/29/21 History predniSONE 5 mg PO DAILY 07/15/17 07/29/21 History Esomeprazole Magnesium 40 mg PO DAILY 09/03/19 07/29/21 History Metoprolol Tartrate [Lopressor] 25 mg PO BID 06/11/20 07/29/21 History Benzonatate [Tessalon Perles] 200 mg PO TID PRN 07/29/21 07/29/21 History Fluticasone Propionate [Flovent 1 puff INHALATION RT-DAILY 07/29/21 07/29/21 History Hfa 220 mcg] Nitrofurantoin Monohyd/M-Cryst 100 mg PO BID 07/29/21 07/29/21 History [Macrobid] Rosuvastatin [Crestor] 10 mg PO DAILY 07/29/21 07/29/21 History cycloSPORINE 0.05% OPHTH SOLN 1 drop BOTH EYES BID 07/29/21 07/29/21 History [Restasis] Allergies Allergy/AdvReac Type Severity Reaction Status Date / Time Penicillins Allergy Rash/Hives Verified 07/29/21 13:44 codeine AdvReac Nausea & Verified 07/29/21 13:44 Vomiting meperidine [From Demerol] AdvReac Nausea & Verified 07/29/21 13:44 Vomiting Physical Exam Vitals: Vital Signs Temp Pulse Resp BP Pulse Ox 07/29/21 11:40 98.1 F 63 18 140/74 93 L Intake and Output 07/28/21 07/29/21 07/29/21 22:59 06:59 14:59 Other: Voiding Method Toilet Weight 63.503 kg General: The patient is awake and alert, in no distress Eye: there is normal conjunctiva bilaterally. Neck: The neck is supple, there is no JVD. Cardiovascular: Normal S1-S2, no S3-S4, no murmurs. Respiratory: Lungs clear to auscultation bilaterally Gastrointestinal: Abdomen is soft, nontender Musculoskeletal: There is no pedal edema. Neurological:. Speech is normal. Skin: Skin is warm and dry Results CBC & Chem 7: 07/29/21 12:56 07/29/21 12:56 Labs: Abnormal Lab Results - Last 24 Hours (Table) 07/29/21 07/29/21 07/29/21 Range/Units 11:53 12:56 12:56 Neutrophils # 7.9 H (1.3-7.7) k/uL BUN 24 H (7-17) mg/dL Glucose 117 H (74-99) mg/dL Ur Leukocyte Esterase Small H (Negative) Urine Mucus Rare H (None) /hpf Assessment and Plan Assessment: 1. ESBL E. 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 Urinary retention with approximately 500 mL postvoid residual 3. Chronic medical problems: Hypertension, hyperlipidemia Today, I discussed with the patient her current presentation. We will start IV antibiotic with Invanz to finish 5-7 days course. I would discuss further with infectious disease. I also consulted urology for further evaluation of urinary retention. I will leave the decision of placing a Rosas catheter versus self cath training him to urology. We will continue supportive care otherwise. Anticipate discharge home within the next day or 2.
--- NOTE | 2021-07-29 14:34 | US ---
EXAMINATION TYPE: US renals and bladder DATE OF EXAM: 07/29/2021 COMPARISON: CT 08/02/19 CLINICAL HISTORY: 75-year-old female with bilateral flank pain. TECHNIQUE: Multiple sonographic images of the kidneys and bladder are obtained. FINDINGS: EXAM MEASUREMENTS: Right Kidney: 11.5x4.4x4.4 cm Left Kidney: 10.8x5.3x4.6 cm Right Kidney: Inf cyst measuring 4.8x5.2x4.9cm versus 5.2 cm on 08/02/2019 CT. Left Kidney: Parapelvic cyst 1.2x1.3x1.2cm. No hydronephrosis on either side. Bladder: Partial distention limits its evaluation. Bilateral Jets seen: Yes IMPRESSION: 1. No hydronephrosis. 2. Dominant 5.2 cm right lower pole renal cyst is unchanged. A smaller 1.3 cm left-sided parapelvic c yst is noted.
[2021-07-29] MEDS: METOPROLOL TARTRATE 25 MG TAB PO SCH (21:26)
[2021-07-29] MEDS: MONTELUKAST 10 MG TAB PO SCH (21:26)
[2021-07-29] MEDS: cycloSPORINE 0.05% OPHTH 0.4 ML DROPERETTE BOTH EYES SCH (21:57)
[2021-07-30 06:35] LABS: Basophils # (A) 0.1 k/uL (0-0.2); Basophils % (A) 1 %; Eosinophils # (A) 0.6 k/uL (0-0.7); Eosinophils % (A) 8 %; HCT 37.9 % (34.0-46.0); HGB 12.5 gm/dL (11.4-16.0); Lymphocytes # (A) 2.8 k/uL (1.0-4.8); Lymphocytes % (A) 35 %; MCH 30.5 pg (25.0-35.0); MCV 92.5 fL (80.0-100.0); Mean Platelet Volume 8.5; Monocytes # (A) 0.4 k/uL (0-1.0); Monocytes % (A) 6 %; Neutrophils # (A) 3.9 k/uL (1.3-7.7); Neutrophils % (A) 49 %; Platelet Count 267 k/uL (150-450); RDW 13.6 % (11.5-15.5); WBC 7.9 k/uL (3.8-10.6)
--- NOTE | 2021-07-30 07:00 | P.GSCN ---
History of Present Illness Consult date: 07/29/21 History of present illness: 75-year-old female admitted to the hospital with recurrent urinary tract infections and a highly resistant E. coli. The patient has a history of incomplete bladder emptying. E. coli is not sensitive to oral antibiotics. Is admitted for IV antibiotics and urologic evaluation. The patient does have a history of incomplete bladder emptying. According to bladder scans there is been between 2 and 300 mL of urine in the bladder after voiding. She had 500 mL upon a straight cath. The patient does admit to multiple attempts to urinate. She does has a sensation of incomplete bladder emptying. There is no other urologic history. She has never seen a urologist. There is no significant history of incontinence. There is no major back or bowel problems. She had a renal bladder ultrasound showing no evidence of hydronephrosis or gross abnormality of the bladder. Review of Systems All systems: negative - Constitutional Denies fever, Denies weight loss - EENT Eyes: denies blurred vision Ears, nose, mouth and throat: Denies dysphagia - Cardiovascular Denies chest pain, Denies shortness of breath - Respiratory Denies cough, Denies 7 - Gastrointestinal Reports as per HPI - Genitourinary Genitourinary: Denies dysuria, Denies hematuria - Integumentary Denies rash, Denies unusual bruising - Neurological Denies headaches, Denies syncope - Hematologic/Lymphatic Denies easy bleeding, Denies easy bruising Past Medical History Past Medical History: Asthma, Eye Disorder, GERD/Reflux, Hypertension, Osteoarthritis (OA) Additional Past Medical History / Comment(s): glaucoma, hx migraines, hiatal hernia, arthritis in hands and feet, "leaky bladder" History of Any Multi-Drug Resistant Organisms: ESBL Year Discovered:: 07/21/21 MDRO Source:: URINE ESBL Past Surgical History: Bowel Resection, Breast Surgery, Joint Replacement, Orthopedic Surgery Additional Past Surgical History / Comment(s): monae knee replacement, rt knee arthroscopy, breast biopsy, monae cataracts Past Anesthesia/Blood Transfusion Reactions: Motion Sickness Past Psychological History: Anxiety, Depression Smoking Status: Never smoker Past Alcohol Use History: None Reported Past Drug Use History: None Reported - Past Family History Brother(s) Family Medical History: Cancer Additional Family Medical History / Comment(s): leukemia Medications and Allergies Home Medications Medication Instructions Recorded Confirmed Type Aspirin [Adult Low Dose Aspirin EC] 81 mg PO DAILY 07/15/17 07/29/21 History Felodipine [Felodipine ER] 5 mg PO DAILY 07/15/17 07/29/21 History Montelukast [Singulair] 10 mg PO HS 07/15/17 07/29/21 History Potassium Chloride ER [K-Dur 20] 20 meq PO BID 07/15/17 07/29/21 History hydroCHLOROthiazide 25 mg PO Q48H 07/15/17 07/29/21 History predniSONE 5 mg PO DAILY 07/15/17 07/29/21 History Esomeprazole Magnesium 40 mg PO DAILY 09/03/19 07/29/21 History Metoprolol Tartrate [Lopressor] 25 mg PO BID 06/11/20 07/29/21 History Benzonatate [Tessalon Perles] 200 mg PO TID PRN 07/29/21 07/29/21 History Fluticasone Propionate [Flovent 1 puff INHALATION RT-DAILY 07/29/21 07/29/21 History Hfa 220 mcg] Nitrofurantoin Monohyd/M-Cryst 100 mg PO BID 07/29/21 07/29/21 History [Macrobid] Rosuvastatin [Crestor] 10 mg PO DAILY 07/29/21 07/29/21 History cycloSPORINE 0.05% OPHTH SOLN 1 drop BOTH EYES BID 07/29/21 07/29/21 History [Restasis] Allergies Allergy/AdvReac Type Severity Reaction Status Date / Time Penicillins Allergy Rash/Hives Verified 07/29/21 13:44 codeine AdvReac Nausea & Verified 07/29/21 13:44 Vomiting meperidine [From Demerol] AdvReac Nausea & Verified 07/29/21 13:44 Vomiting Surgical - Exam Vital Signs Temp Pulse Resp BP Pulse Ox 98.1 F 63 18 140/74 93 L 07/29/21 11:40 07/29/21 11:40 07/29/21 11:40 07/29/21 11:40 07/29/21 11:40 - General well developed, well nourished, no distress - Eyes PERRL - ENT no hearing loss - Neck trachea midline - Respiratory normal expansion, normal respiratory effort - Cardiovascular Rhythm: regular - Abdomen Abdomen: soft, non tender - Integumentary no rash, no growths - Neurologic normal coordination, normal sensation - Musculoskeletal normal posture - Psychiatric oriented to time, oriented to person, oriented to place, speech is normal, memory intact Results - Labs 07/30/21 05:32 07/29/21 12:56 Abnormal Lab Results - Last 24 Hours (Table) 07/29/21 07/29/21 07/29/21 Range/Units 11:53 12:56 12:56 Neutrophils # 7.9 H (1.3-7.7) k/uL BUN 24 H (7-17) mg/dL Glucose 117 H (74-99) mg/dL Ur Leukocyte Esterase Small H (Negative) Urine Mucus Rare H (None) /hpf Microbiology - Last 24 Hours (Table) 07/29/21 15:39 Urine Culture - Preliminary Urine,Clean Catch Diabetes panel 07/29/21 Range/Units 12:56 Sodium 137 (137-145) mmol/L Potassium 4.7 (3.5-5.1) mmol/L Chloride 106 (98-107) mmol/L Carbon Dioxide 24 (22-30) mmol/L BUN 24 H (7-17) mg/dL Creatinine 0.55 (0.52-1.04) mg/dL Glucose 117 H (74-99) mg/dL Calcium 9.4 (8.4-10.2) mg/dL AST 24 (14-36) U/L ALT 13 (4-34) U/L Alkaline Phosphatase 49 (38-126) U/L Total Protein 7.2 (6.3-8.2) g/dL Albumin 3.9 (3.5-5.0) g/dL Calcium panel 07/29/21 Range/Units 12:56 Calcium 9.4 (8.4-10.2) mg/dL Albumin 3.9 (3.5-5.0) g/dL Pituitary panel 07/29/21 Range/Units 12:56 Sodium 137 (137-145) mmol/L Potassium 4.7 (3.5-5.1) mmol/L Chloride 106 (98-107) mmol/L Carbon Dioxide 24 (22-30) mmol/L BUN 24 H (7-17) mg/dL Creatinine 0.55 (0.52-1.04) mg/dL Glucose 117 H (74-99) mg/dL Calcium 9.4 (8.4-10.2) mg/dL Adrenal panel 07/29/21 Range/Units 12:56 Sodium 137 (137-145) mmol/L Potassium 4.7 (3.5-5.1) mmol/L Chloride 106 (98-107) mmol/L Carbon Dioxide 24 (22-30) mmol/L BUN 24 H (7-17) mg/dL Creatinine 0.55 (0.52-1.04) mg/dL Glucose 117 H (74-99) mg/dL Calcium 9.4 (8.4-10.2) mg/dL Total Bilirubin 0.6 (0.2-1.3) mg/dL AST 24 (14-36) U/L ALT 13 (4-34) U/L Alkaline Phosphatase 49 (38-126) U/L Total Protein 7.2 (6.3-8.2) g/dL Albumin 3.9 (3.5-5.0) g/dL - Imaging US - kidney/bladder: report reviewed, image reviewed Assessment and Plan Assessment: Impression: Recurrent urinary tract infection due to incomplete bladder emptying and highly resistant bacteria. Recommendations: The incomplete bladder emptying contributes to the inability to clear the infection aggravated by the highly resistant bacteria. Timed and double voiding has been discussed with the patient. She continues to have problems she may have to have intermittent self-catheterization. Or chili this is low pressure situation has not affected the upper urinary tract. She did need to be followed in the office.
[2021-07-30] MEDS: FLUTICASONE 220 MCG INHALER INHALATION SCH (07:42)
--- NOTE | 2021-07-30 08:09 | P.CONS ---
History of Present Illness - Reason for Consult Consult date: 07/29/21 ESBL E.coli UTI Requesting physician: Shanon Munguia - Chief Complaint urine burning and frequency x days - History of Present Illness History of present illness : Patient is 75-year female with a past medical history significant for recurrent urinary tract infection presenting to the ER for evaluation of burning frequency of urination and some blood in her u rine and this patient apparently did have a history of recurrent UTIs patient did have a urine culture done by her PCP on 07/21/2021 and she has been treated with Macrobid however the patient did not have any improvement patient PCP has talked to the urologist recommending admission and IV biotherapy as patient urine culture done on the 07/21/2021 came back positive with ESBL E. coli and patient seem to be growing the same pathogen over the last 1 year patient on presentation to the hospital was afebrile patient did have a renal ultrasound no hydronephrosis dominant right lower pole cyst unchanged patient was started on Invanz has been at hospital infectious disease was consulted for further management of antibiotic therapy patient did have a normal white count urine is not significantly positive Review of system: CONSTITUTIONAL: Positive for weakness denies fever. EYES: No complaint. ENT: No complaint. RESPIRATORY: No complaint. CARDIOVASCULAR: No complaint. GENITOURINARY: As per history of present illness. GASTROINTESTINAL: No complaint. MUSCULOSKELETAL: No complaint. INTEGUMENTARY: No complaint. PSYCHOLOGIC: No complaint. ENDOCRINE: No complaint. NEUROLOGIC: No complaint. Past medical history : Reviewed, documented below Past surgical history : Reviewed, documented below Social history: Reviewed, documented below Medications: Reviewed, as documented below EXAMINATION: Vital sigans= Reviewed and documented below GENERAL DESCRIPTION: Elderly female lying in bed, no distress. No tachypnea or accessory muscle of respiration use. HEENT: Shows Pallor , no scleral icterus. Oral mucous membrane is dry. NECK: Trachea central, no thyromegaly. LUNGS: Unlabored breathing. Clear to auscultation anteriorly. No wheeze or crackle. HEART: S1, S2, regular rate and rhythm. ABDOMEN: Soft, no tenderness , guarding or rigidity EXTREMITIES: No edema of feet. SKIN: No rash, no masses palpable. NEUROLOGICAL: The patient is awake, alert, oriented x3, mood and affect normal. LABS AND RADIOLOGY: Reviewed results see below Assessment : Patient presented to hospital with urinary burning frequency and some hematuria in this patient urine culture done on 07/21/2021 has been positive for ESBL failed to respond to outpatient Macrobid therapy review of her micro data did show she has grown the same pathogen multiple times over the last year patient currently do not have any fever or elevated white count and urine was significantly positive ultrasound did show some cyst Plan: 1-Invanz 1 g daily to continue 2-gentle IV fluid 3-await urology evaluation to see if there is any need for cystoscopy to rule out etiology for the recurrent urinary tract infection We will follow on clinical condition and cultures to further adjust medication if needed Thank you for this consultation we will follow the patient along with you Past Medical History Past Medical History: Asthma, Eye Disorder, GERD/Reflux, Hypertension, Osteoarthritis (OA) Additional Past Medical History / Comment(s): glaucoma, hx migraines, hiatal hernia, arthritis in hands and feet, "leaky bladder" History of Any Multi-Drug Resistant Organisms: ESBL Year Discovered:: 07/21/21 MDRO Source:: URINE ESBL Past Surgical History: Bowel Resection, Breast Surgery, Joint Replacement, Orthopedic Surgery Additional Past Surgical History / Comment(s): monae knee replacement, rt knee arthroscopy, breast biopsy, monae cataracts Past Anesthesia/Blood Transfusion Reactions: Motion Sickness Past Psychological History: Anxiety, Depression Smoking Status: Never smoker Past Alcohol Use History: None Reported Past Drug Use History: None Reported - Past Family History Brother(s) Family Medical History: Cancer Additional Family Medical History / Comment(s): leukemia Medications and Allergies Home Medications Medication Instructions Recorded Confirmed Type Aspirin [Adult Low Dose Aspirin EC] 81 mg PO DAILY 07/15/17 07/29/21 History Felodipine [Felodipine ER] 5 mg PO DAILY 07/15/17 07/29/21 History Montelukast [Singulair] 10 mg PO HS 07/15/17 07/29/21 History Potassium Chloride ER [K-Dur 20] 20 meq PO BID 07/15/17 07/29/21 History hydroCHLOROthiazide 25 mg PO Q48H 07/15/17 07/29/21 History predniSONE 5 mg PO DAILY 07/15/17 07/29/21 History Esomeprazole Magnesium 40 mg PO DAILY 09/03/19 07/29/21 History Metoprolol Tartrate [Lopressor] 25 mg PO BID 06/11/20 07/29/21 History Benzonatate [Tessalon Perles] 200 mg PO TID PRN 07/29/21 07/29/21 History Fluticasone Propionate [Flovent 1 puff INHALATION RT-DAILY 07/29/21 07/29/21 History Hfa 220 mcg] Nitrofurantoin Monohyd/M-Cryst 100 mg PO BID 07/29/21 07/29/21 History [Macrobid] Rosuvastatin [Crestor] 10 mg PO DAILY 07/29/21 07/29/21 History cycloSPORINE 0.05% OPHTH SOLN 1 drop BOTH EYES BID 07/29/21 07/29/21 History [Restasis] Allergies Allergy/AdvReac Type Severity Reaction Status Date / Time Penicillins Allergy Rash/Hives Verified 07/29/21 13:44 codeine AdvReac Nausea & Verified 07/29/21 13:44 Vomiting meperidine [From Demerol] AdvReac Nausea & Verified 07/29/21 13:44 Vomiting Physical Exam Vitals: Vital Signs Temp Pulse Resp BP Pulse Ox 07/29/21 11:40 98.1 F 63 18 140/74 93 L Intake and Output 07/29/21 07/29/21 07/29/21 06:59 14:59 22:59 Other: Voiding Method Toilet Weight 63.503 kg Results CBC & Chem 7: 07/30/21 05:32 07/29/21 12:56 Labs: Abnormal Lab Results - Last 24 Hours (Table) 07/29/21 07/29/21 07/29/21 Range/Units 11:53 12:56 12:56 Neutrophils # 7.9 H (1.3-7.7) k/uL BUN 24 H (7-17) mg/dL Glucose 117 H (74-99) mg/dL Ur Leukocyte Esterase Small H (Negative) Urine Mucus Rare H (None) /hpf
[2021-07-30] MEDS: ERTAPENEM 1 GM in SODIUM CHLORIDE 0.9% 50 ML IVPB SCH (08:36)
[2021-07-30] MEDS: METOPROLOL TARTRATE 25 MG TAB PO SCH ×2 (08:36→20:59)
[2021-07-30] MEDS: predniSONE 5 MG TAB PO SCH (08:36)
[2021-07-30] MEDS: amLODIPine 5 MG TAB PO SCH (08:36)
[2021-07-30] MEDS: PANTOPRAZOLE 40 MG TABLET PO SCH (08:36)
[2021-07-30] MEDS: ATORVASTATIN 20 MG TAB PO SCH (08:36)
[2021-07-30] MEDS: ASPIRIN 81 MG PO SCH (08:36)
[2021-07-30] MEDS: cycloSPORINE 0.05% OPHTH 0.4 ML DROPERETTE BOTH EYES SCH ×2 (08:36→20:59)
[2021-07-30 11:13] LABS: African American GFR (CKD) 101.9 (60.0-200.0); Anion Gap 11.4 mmol/L (4.00-12.00); BUN/Creat Ratio 31.67 Ratio (12.00-20.00); Calcium 8.8 mg/dL (8.7-10.3); Carbon Dioxide 23.6 mmol/L (21.6-31.8); Non-African American GFR(CKD) 87.9 (60.0-200.0); Potassium 3.8 mmol/L (3.5-5.5)
--- NOTE | 2021-07-30 13:28 | P.PN ---
Subjective Patient is still having problems with retaining this morning post void residual on bladder scan was approximately 150 mL but patient was straight cath and 300 mL of urine came out. Objective - Vital Signs Vital signs: Vital Signs Temp 98.2 F 07/30/21 12:17 Pulse 61 07/30/21 12:17 Resp 16 07/30/21 12:17 BP 146/55 07/30/21 12:17 Pulse Ox 95 07/30/21 12:17 Intake & Output 07/29/21 07/30/21 07/30/21 18:59 06:59 18:59 Intake Total 820 100 Output Total 100 300 Balance 820 0 -300 Weight 63.503 kg Intake: Intake, IV Titration 100 Amount Ertapenem 1 gm In Sodium 100 Chloride 0.9% 50 ml @ 100 mls/hr IVPB DAILY [facility] Rx #:[id number] Oral 720 100 Output: Urine 100 300 Straight 300 Other: Voiding Method Toilet Toilet Toilet # Voids 5 2 - Exam General: The patient is awake and alert, in no distress Eye: there is normal conjunctiva bilaterally. Neck: The neck is supple, there is no JVD. Cardiovascular: Normal S1-S2, no S3-S4, no murmurs. Respiratory: Lungs clear to auscultation bilaterally Gastrointestinal: Abdomen is soft, nontender Musculoskeletal: There is no pedal edema. Neurological:. Speech is normal. Skin: Skin is warm and dry - Labs CBC & Chem 7: 07/30/21 05:32 07/30/21 05:32 Labs: Abnormal Lab Results - Last 24 Hours (Table) 07/30/21 Range/Units 05:32 BUN/Creatinine Ratio 31.67 H (12.00-20.00) Ratio Microbiology - Last 24 Hours (Table) 07/29/21 15:39 Urine Culture - Preliminary Urine,Clean Catch Assessment and Plan Assessment: 1. ESBL E. 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 Urinary retention with approximately 500 mL postvoid residual 3. Chronic medical problems: Hypertension, hyperlipidemia Today, patient continues to have problem with urinary retention. She was seen and evaluated by urology. I advised nursing staff to start self-catheterization teaching. Continue IV Invanz awaiting infectious disease recommendations.
[2021-07-30] MEDS: ENOXAPARIN 40 MG/0.4 ML SYRINGE SQ SCH (16:50)
[2021-07-30] MEDS: MONTELUKAST 10 MG TAB PO SCH (20:59)
--- NOTE | 2021-07-30 23:31 | PN ---
PROGRESS NOTE DATE OF SERVICE: 07/30/2021 REASON FOR FOLLOWUP: ESBL E coli urinary tract infection. INTERVAL HISTORY: The patient is afebrile. She is breathing comfortably. Still complaining of urinary burning. No chest pain, shortness of breath or cough. No abdominal pain or diarrhea. PHYSICAL EXAMINATION: Blood pressure 150/70 with a pulse of 65, temperature 98.6. She is 96% on room air. General description is an elderly female lying in bed in no distress. Respiratory system: Unlabored breathing, clear to auscultation anteriorly. Heart S1, S2. Regular rate and rhythm. Abdomen soft, no tenderness. LABS: Hemoglobin is 12.5, white count 7.9, BUN of 19, creatinine 0.6. DIAGNOSTIC IMPRESSION AND PLAN: Patient with a positive urine culture with ESBL Escherichia coli with multiple positive cultures in this patient with likely incomplete emptying of the bladder as a risk factor. Patient is covered with Invanz. May consider a short course as per discussion with the admitting team. Continue with supportive care. MMODL / IJN: [id number] /
[2021-07-31] MEDS: FLUTICASONE 220 MCG INHALER INHALATION SCH (07:47)
--- NOTE | 2021-07-31 07:47 | P.PN ---
Subjective Progress Note Date: 07/31/21 The patient is in the hospital with a highly resistant E. coli. She has a history of incomplete bladder emptying. She will need longer term antibiotics to clear the infection. Intermittent catheterization will be discussed. She'll need follow-up in our office Objective - Vital Signs Vital signs: Vital Signs Temp 98.6 F 07/31/21 07:10 Pulse 65 07/31/21 07:10 Resp 20 07/31/21 07:10 BP 129/73 07/31/21 07:10 Pulse Ox 96 07/31/21 07:10 Intake & Output 07/30/21 07/31/21 07/31/21 18:59 06:59 18:59 Intake Total 50 100 Output Total 300 475 Balance -250 -375 Intake: Intake, IV Titration 50 Amount Ertapenem 1 gm In Sodium 50 Chloride 0.9% 50 ml @ 100 mls/hr IVPB DAILY [facility] Rx #:[id number] Oral 100 Output: Urine 300 475 Straight 300 175 Other: Voiding Method Toilet Toilet # Voids 2 - Labs CBC & Chem 7: 07/30/21 05:32 07/30/21 05:32 Labs: Abnormal Lab Results - Last 24 Hours (Table) 07/30/21 Range/Units 05:32 BUN/Creatinine Ratio 31.67 H (12.00-20.00) Ratio Microbiology - Last 24 Hours (Table) 07/29/21 15:39 Urine Culture - Final Urine,Clean Catch 07/29/21 12:56 Blood Culture - Preliminary Blood No Growth after 24 hours
[2021-07-31] MEDS: ERTAPENEM 1 GM in SODIUM CHLORIDE 0.9% 50 ML IVPB SCH (08:55)
[2021-07-31] MEDS: PANTOPRAZOLE 40 MG TABLET PO SCH (08:55)
[2021-07-31] MEDS: ENOXAPARIN 40 MG/0.4 ML SYRINGE SQ SCH (09:32)
[2021-07-31] MEDS: predniSONE 5 MG TAB PO SCH (09:32)
[2021-07-31] MEDS: amLODIPine 5 MG TAB PO SCH (09:34)
[2021-07-31] MEDS: METOPROLOL TARTRATE 25 MG TAB PO SCH ×2 (09:34→20:25)
[2021-07-31] MEDS: ATORVASTATIN 20 MG TAB PO SCH (09:35)
[2021-07-31] MEDS: ASPIRIN 81 MG PO SCH (09:35)
[2021-07-31] MEDS: cycloSPORINE 0.05% OPHTH 0.4 ML DROPERETTE BOTH EYES SCH ×2 (09:38→20:28)
--- NOTE | 2021-07-31 15:05 | P.PN ---
Subjective Patient is doing fairly well today. She is still not comfortable doing self- catheterization. Objective - Vital Signs Vital signs: Vital Signs Temp 97.9 F 07/31/21 13:00 Pulse 59 L 07/31/21 13:00 Resp 17 07/31/21 13:00 BP 134/80 07/31/21 13:00 Pulse Ox 95 07/31/21 13:00 Intake & Output 07/30/21 07/31/21 07/31/21 18:59 06:59 18:59 Intake Total 50 100 Output Total 300 475 150 Balance -250 -375 -150 Intake: Intake, IV Titration 50 Amount Ertapenem 1 gm In Sodium 50 Chloride 0.9% 50 ml @ 100 mls/hr IVPB DAILY [facility] Rx #:[id number] Oral 100 Output: Urine 300 475 150 Straight 300 175 150 Other: Voiding Method Toilet Toilet Toilet Self-Catheterization # Voids 2 - Exam General: The patient is awake and alert, in no distress Eye: there is normal conjunctiva bilaterally. Neck: The neck is supple, there is no JVD. Cardiovascular: Normal S1-S2, no S3-S4, no murmurs. Respiratory: Lungs clear to auscultation bilaterally Gastrointestinal: Abdomen is soft, nontender Musculoskeletal: There is no pedal edema. Neurological:. Speech is normal. Skin: Skin is warm and dry - Labs CBC & Chem 7: 07/30/21 05:32 07/30/21 05:32 Labs: Microbiology - Last 24 Hours (Table) 07/29/21 15:39 Urine Culture - Final Urine,Clean Catch 07/29/21 12:56 Blood Culture - Preliminary Blood No Growth after 24 hours Assessment and Plan Assessment: 1. ESBL E. 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 Repeat blood culture during this admission negative to date 2. Urinary retention with approximately 500 mL postvoid residual 3. Chronic medical problems: Hypertension, hyperlipidemia Today, patient continues to have problem with urinary retention. She was seen and evaluated by urology. I advised nursing staff to start self-catheterization teaching. Continue IV Invanz for another day. Plan for discharge home tomorrow.
[2021-07-31] MEDS ORDERED: ACETAMINOPHEN TAB 325 MG TAB PO PRN (20:02)
[2021-07-31] MEDS: MONTELUKAST 10 MG TAB PO SCH (20:24)
[2021-08-01] MEDS: FLUTICASONE 220 MCG INHALER INHALATION SCH (07:44)
--- NOTE | 2021-08-01 08:12 | PN ---
PROGRESS NOTE DATE OF SERVICE: 07/31/2021 REASON FOR FOLLOWUP: ESBL E coli urinary tract infection. INTERVAL HISTORY: Patient is afebrile. The patient is breathing comfortably. Denies having any chest pain, shortness of breath or cough. No abdominal pain. No diarrhea. PHYSICAL EXAMINATION: Blood pressure 138/66, pulse of 62, temperature is 97.5. She is 92% on room air. General description is an elderly female lying in bed in no distress. Respiratory system: Unlabored breathing, clear to auscultation anteriorly. Heart S1, S2. Regular rate and rhythm. Abdomen soft, no tenderness. LABS: No new labs have been obtained today. DIAGNOSTIC IMPRESSION AND PLAN: Patient with recurrent ESBL E coli, positive urine culture in this patient with incomplete emptying of the bladder patient is covered with to continue while waiting for the culture to finalize. Monitor clinical course closely. MMODL / IJN: [id number] /
[2021-08-01] MEDS: PANTOPRAZOLE 40 MG TABLET PO SCH (08:58)
[2021-08-01] MEDS: METOPROLOL TARTRATE 25 MG TAB PO SCH (08:58)
[2021-08-01] MEDS: cycloSPORINE 0.05% OPHTH 0.4 ML DROPERETTE BOTH EYES SCH (08:58)
[2021-08-01] MEDS: ASPIRIN 81 MG PO SCH (08:58)
[2021-08-01] MEDS: amLODIPine 5 MG TAB PO SCH (08:58)
[2021-08-01] MEDS: ATORVASTATIN 20 MG TAB PO SCH (08:58)
[2021-08-01] MEDS: ENOXAPARIN 40 MG/0.4 ML SYRINGE SQ SCH (08:59)
[2021-08-01] MEDS: ERTAPENEM 1 GM in SODIUM CHLORIDE 0.9% 50 ML IVPB SCH (08:59)
[2021-08-01] MEDS: predniSONE 5 MG TAB PO SCH (08:59)
[2021-08-01 12:00] VITALS: BP 129/70; PULSE 60; RESP 16; TEMP 98.1
--- NOTE | 2021-08-01 12:59 | P.DS ---
Providers Date of admission: 07/31/21 15:04 Expected date of discharge: 08/01/21 Attending physician: Shanon Munguia Consults: 07/29/21 14:21 Consult Physician Routine Consulting Provider: Robert Vargas Consult Reason/Comments: ESBL Do you want consulting provider notified?: Yes 07/29/21 14:23 Consult Physician Routine Consulting Provider: Peter Lew Consult Reason/Comments: Urinary retention Do you want consulting provider notified?: Yes [facility] [place] [facility] Course: This is a 75-year-old female with past medical history significant for hypertension and hyperlipidemia that was sent to the emergency room by her PCP for further evaluation of ESBL E. coli UTI. Patient was evaluated in the ER and admitted to the hospital for further management. She was found to have evidence of intermittent urinary retention requiring straight catheterization. She was started on IV antibiotic with Invanz and repeat urine culture was negative. She was evaluated by urology and infectious disease. Review of old culture showed multiple occasions with patient had ESBL in the past 2 years that was not treated. 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 Repeat urine culture during this admission was negative. Patient received 4 days of IV Invanz and antibiotic will be discontinued. She was instructed and trained on doing self-catheterization at home as needed for this evening when she is not emptying her bladder. She will follow-up with urology in the office. Patient will be discharged home in a stable condition. Follow-up with her PCP as directed. Physical exam: General: The patient is awake and alert, in no distress Eye: there is normal conjunctiva bilaterally. Neck: The neck is supple, there is no JVD. Cardiovascular: Normal S1-S2, no S3-S4, no murmurs. Respiratory: Lungs clear to auscultation bilaterally Gastrointestinal: Abdomen is soft, nontender Musculoskeletal: There is no pedal edema. Neurological:. Speech is normal. Skin: Skin is warm and dry Patient Condition at Discharge: Stable Plan - Discharge Summary New Discharge Prescriptions: Continue predniSONE 5 mg PO DAILY Potassium Chloride ER [K-Dur 20] 20 meq PO BID Montelukast [Singulair] 10 mg PO HS hydroCHLOROthiazide 25 mg PO Q48H Felodipine [Felodipine ER] 5 mg PO DAILY Aspirin [Adult Low Dose Aspirin EC] 81 mg PO DAILY Esomeprazole Magnesium 40 mg PO DAILY Metoprolol Tartrate [Lopressor] 25 mg PO BID cycloSPORINE 0.05% OPHTH SOLN [Restasis] 1 drop BOTH EYES BID Fluticasone Propionate [Flovent Hfa 220 mcg] 1 puff INHALATION RT-DAILY Rosuvastatin [Crestor] 10 mg PO DAILY Benzonatate [Tessalon Perles] 200 mg PO TID PRN PRN Reason: Cough Discontinued Nitrofurantoin Monohyd/M-Cryst [Macrobid] 100 mg PO BID Discharge Medication List Aspirin [Adult Low Dose Aspirin EC] 81 mg PO DAILY 07/15/17 [History] Felodipine [Felodipine ER] 5 mg PO DAILY 07/15/17 [History] Montelukast [Singulair] 10 mg PO HS 07/15/17 [History] Potassium Chloride ER [K-Dur 20] 20 meq PO BID 07/15/17 [History] hydroCHLOROthiazide 25 mg PO Q48H 07/15/17 [History] predniSONE 5 mg PO DAILY 07/15/17 [History] Esomeprazole Magnesium 40 mg PO DAILY 09/03/19 [History] Metoprolol Tartrate [Lopressor] 25 mg PO BID 06/11/20 [History] Benzonatate [Tessalon Perles] 200 mg PO TID PRN 07/29/21 [History] Fluticasone Propionate [Flovent Hfa 220 mcg] 1 puff INHALATION RT-DAILY 07/29/21 [History] Rosuvastatin [Crestor] 10 mg PO DAILY 07/29/21 [History] cycloSPORINE 0.05% OPHTH SOLN [Restasis] 1 drop BOTH EYES BID 07/29/21 [History] Follow up Appointment(s)/Referral(s): Diana Anderson MD [Primary Care Provider] - 1-2 days Gabriel Lewis MD [STAFF PHYSICIAN] - 2 Weeks Patient Instructions/Handouts: How to Catheterize Yourself (Woman) (GEN) Discharge Disposition: HOME SELF-CARE
== END 2021-08-01 17:50 | disposition home or self-care (01) | DRG 690 ==
LOC: EC 11:01 → 5NMEDONC 13:23 → OBSVTOIN 07-31 15:04
PROVIDERS: ADMIT Internal Medicine; ATTEND Internal Medicine
DX: N39.0 Urinary tract infection, site not specified (principal); Z16.12 Extended spectrum beta lactamase (ESBL) resistance; B96.20 Unspecified Escherichia coli [E. coli] as the cause of diseases classified elsewhere; R33.9 Retention of urine, unspecified; E78.5 Hyperlipidemia, unspecified; F32.9 Major depressive disorder, single episode, unspecified; F41.9 Anxiety disorder, unspecified; I10 Essential (primary) hypertension; J45.909 Unspecified asthma, uncomplicated; Z20.822 Contact with and (suspected) exposure to COVID-19; Z79.51 Long term (current) use of inhaled steroids; Z79.82 Long term (current) use of aspirin; Z79.899 Other long term (current) drug therapy; Z80.6 Family history of leukemia; Z87.440 Personal history of urinary (tract) infections; Z96.653 Presence of artificial knee joint, bilateral
CPT/HCPCS: 36415; 76770; 80048; 80053; 81001; 85025; 87040; 87086; 87635; 94640; 99284

== ENCOUNTER → 2021-12-19 | Outpatient (CLI) | payer MEDICARE ==
[2021-12-19 13:57] LABS: Chol/HDL Ratio 2.07 Ratio; LDL Cholesterol,Calculated 77.8 mg/dL (0.0-131.0)
== END | disposition home or self-care (01) ==
LOC: LABWHC1 08:38
PROVIDERS: ATTEND Nurse Practitioner
DX: E78.5 Hyperlipidemia, unspecified (principal)
CPT/HCPCS: 36415; 80061

== ENCOUNTER → 2022-01-27 | Outpatient (CLI) | payer MEDICARE ==
--- NOTE | 2022-01-28 14:31 | MM ---
Reason for exam: screening (asymptomatic). Last mammogram was performed 1 year and 1 month ago. History: Patient is postmenopausal and had first child at age 33. Benign MG stereo VAD BX RT of the right breast, September 15, 2018. Took estrogen for 8 years beginning at age 38. Physical Findings: A clinical breast exam by your physician is recommended on an annual basis and results should be correlated with mammographic findings. MG 3D Screening Mammo W/Cad Bilateral CC and MLO view(s) were taken. Prior study comparison: December 25, 2020, bilateral MG 3d screening mammo w/cad. September 07, 2019, bilateral MG 3d screening mammo w/cad. Finding: There are indeterminate calcifications in the upper outer quadrant of the right breast. Previous mammotome biopsy in the right breast. ASSESSMENT: Incomplete: need additional imaging evaluation, BI-RAD 0 RECOMMENDATION: Special view mammogram of the right breast. [facility] will attempt to contact patient to return for supplemental views.
== END | disposition home or self-care (01) ==
LOC: RADMAMWWP 08:11
PROVIDERS: ATTEND Family Medicine
DX: Z12.31 Encounter for screening mammogram for malignant neoplasm of breast (principal); Z78.0 Asymptomatic menopausal state
CPT/HCPCS: 77063; 77067

== ENCOUNTER → 2022-01-29 | Outpatient (CLI) | payer MEDICARE ==
--- NOTE | 2022-01-29 12:09 | XR ---
EXAMINATION TYPE: XR ribs RT DATE OF EXAM: 01/29/2022 CLINICAL HISTORY: R07.81 Pleurodynia Four views of the ribs fail demonstrate evidence for displaced rib fracture or secondary sign of rib fracture. Visualized lungs demonstrate linear atelectasis at the right lung base. No evidence for pn eumothorax. IMPRESSION: 1. No displaced rib fractures seen. ICD 10 NO FRACTURE, INITIAL EVALUATION
== END | disposition home or self-care (01) ==
LOC: RADXRMAIN 11:47
PROVIDERS: ATTEND Nurse Practitioner Family
DX: R07.81 Pleurodynia (principal)

== ENCOUNTER → 2022-02-03 | Outpatient (CLI) | payer MEDICARE ==
--- NOTE | 2022-02-03 14:55 | MM ---
Reason for Exam: Additional evaluation requested from abnormal screening. Last screening mammogram was performed less than 1 month ago. Patient History: Menarche at age 10. First Full-Term at age 33. Late child-bearing (after 28). Postmenopausal. Estrogen for 8 years from age 38 until age 46. 09/15/2018, Benign Core Biopsy on the right side. Risk Values: [place] 5 year model risk: 2.8%. NCI Lifetime model risk: 5.0%. Film Views: Right CC magnification views were taken. Right LM magnification views were taken. Right LM views were taken. Prior Study Comparison: 09/07/2019 Bilateral Screening Mammogram, [facility]. 12/25/2020 Bilateral Screening Mammogram, [facility]. 01/27/2022 Bilateral Screening Mammogram, [facility]. Tissue Density: Right: The breast tissue is heterogeneously dense. This may lower the sensitivity of mammography. Findings: Analyzed By CAD. There are 4 benign appearing calcifications in the upper outer quadrant right breast anterior position. A suspicious cluster is not identified. Additional benign calcifications are present. 8 core markers within the right breast. No significant interval change is evident. Overall Assessment: Benign, BI-RAD 2 Management: Screening Mammogram of both breasts in 1 year. A clinical breast exam by your physician is recommended on an annual basis and results should be correlated with mammographic findings. This exam should not preclude additional follow-up of suspicious palpable abnormalities. Results were given to the patient verbally at the time of exam.
== END | disposition home or self-care (01) ==
LOC: RADMAMWWP 14:14
PROVIDERS: ATTEND Family Medicine
DX: R92.1 Mammographic calcification found on diagnostic imaging of breast (principal); Z78.0 Asymptomatic menopausal state
CPT/HCPCS: 77065; G0279; 77061

== ENCOUNTER 2022-07-13 04:12 | Emergency (ER) | payer MEDICARE ==
[2022-07-13 04:41] VITALS: TEMP 97.9
[2022-07-13 06:14] LABS: Basophils # (A) 0.1 k/uL (0-0.2); Basophils % (A) 1 %; Eosinophils # (A) 0.8 k/uL (0-0.7); Eosinophils % (A) 7 %; HCT 40.8 % (34.0-46.0); HGB 13.8 gm/dL (11.4-16.0); Lymphocytes # (A) 2.9 k/uL (1.0-4.8); Lymphocytes % (A) 26 %; MCH 31.1 pg (25.0-35.0); MCHC 33.9 g/dL (31.0-37.0); MCV 91.6 fL (80.0-100.0); Mean Platelet Volume 9.2; Monocytes # (A) 0.6 k/uL (0-1.0); Monocytes % (A) 5 %; Neutrophils # (A) 6.5 k/uL (1.3-7.7); Neutrophils % (A) 59 %; Platelet Count 207 k/uL (150-450); RBC 4.45 m/uL (3.80-5.40); RDW 13.5 % (11.5-15.5)
[2022-07-13 06:15] LABS: Partial Thromboplastin Time 22.7 sec (22.0-30.0); Prothrombin Time 10.6 sec (9.0-12.0)
[2022-07-13 06:17] LABS: ALT 18 U/L (4-34); AST 24 U/L (14-36); African American GFR (CKD) >90 (>60 ml/min/1.73 sqM); Albumin 4.4 g/dL (3.5-5.0); Alkaline Phosphatase 52 U/L (38-126); Anion Gap 11 mmol/L; Blood Urea Nitrogen 18 mg/dL (7-17); Carbon Dioxide 26 mmol/L (22-30); Chloride 100 mmol/L (98-107); Glucose 98 mg/dL (74-99); Lipase 14 U/L (23-300); Non-African American GFR(CKD) 88 (>60 ml/min/1.73 sqM); Potassium 3.5 mmol/L (3.5-5.1); Sodium 137 mmol/L (137-145); Total Bilirubin 1.7 mg/dL (0.2-1.3); Total Protein 7.1 g/dL (6.3-8.2)
[2022-07-13] MEDS ORDERED: MORPHINE SULFATE 4 MG/ML SYRINGE IVP STA (06:28)
[2022-07-13] MEDS ORDERED: ONDANSETRON 4 MG/2 ML VIAL IVP STA ×2 (06:28→09:35)
--- NOTE | 2022-07-13 07:21 | ED ---
Abdominal Pain HPI <Krish Barrios - Last Filed: 07/13/22 09:34> - General Source: patient Mode of arrival: ambulatory Limitations: no limitations <Miya Ibrahim - Last Filed: 07/17/22 10:15> - General Chief Complaint: Abdominal Pain Stated Complaint: Abdominal pain Time Seen by Provider: 07/13/22 05:47 - History of Present Illness Initial Comments: 76-year-old female with past medical history of hypertension, hiatal hernia, bowel resection who presents to the emergency department with epigastric abdominal pain. States that she does have chronic discomfort however around 6 PM the patient had worsening epigastric abdominal pain. Is radiation of the pain. States that it is 7 out of 10 and gnawing. Has associated belching. Admits to nausea without vomiting. No fevers or chills. No chest pain or shortness of breath. Denies any back or flank pain. No changes in her urination. Does admit to some diarrhea. No black or bloody stools. No other alleviating, precipitating or modifying factors (Miya Ibrahim) - Related Data Home Medications Medication Instructions Recorded Confirmed Aspirin [Adult Low Dose Aspirin EC] 81 mg PO DAILY 07/15/17 07/16/22 Felodipine [Felodipine ER] 5 mg PO DAILY 07/15/17 07/16/22 Montelukast [Singulair] 10 mg PO HS 07/15/17 07/16/22 Potassium Chloride ER [K-Dur 20] 20 meq PO BID 07/15/17 07/16/22 hydroCHLOROthiazide 25 mg PO Q48H 07/15/17 07/16/22 predniSONE 5 mg PO DAILY 07/15/17 07/16/22 Esomeprazole Magnesium 40 mg PO DAILY 09/03/19 07/16/22 Metoprolol Tartrate [Lopressor] 25 mg PO BID 06/11/20 07/16/22 Fluticasone Propionate [Flovent 1 puff INHALATION RT-DAILY 07/29/21 07/16/22 Hfa 220 mcg] Rosuvastatin [Crestor] 10 mg PO HS 07/29/21 07/16/22 cycloSPORINE 0.05% OPHTH SOLN 1 drop BOTH EYES BID 07/29/21 07/16/22 [Restasis] Sulfamethox-Tmp 800-160Mg [Bactrim 1 tab PO Q12HR 07/16/22 07/16/22 Ds] Tolterodine ER [Detrol LA] 4 mg PO HS 07/16/22 07/16/22 Previous Rx's Medication Instructions Recorded Ondansetron Odt [Zofran ODT] 4 mg PO Q8HR PRN #10 tab 07/13/22 Allergies Allergy/AdvReac Type Severity Reaction Status Date / Time Penicillins Allergy Rash/Hives Verified 07/16/22 16:10 codeine AdvReac Nausea & Verified 07/16/22 16:10 Vomiting meperidine [From Demerol] AdvReac Nausea & Verified 07/16/22 16:10 Vomiting Review of Systems ROS Other: All systems not noted in ROS Statement are negative. <Krish Barrios - Last Filed: 07/13/22 09:34> ROS Other: All systems not noted in ROS Statement are negative. <Miya Ibrahim - Last Filed: 07/17/22 10:15> ROS Statement: Those systems with pertinent positive or pertinent negative responses have been documented in the HPI. Past Medical History Past Medical History: Asthma, Eye Disorder, GERD/Reflux, Hypertension, Osteoarthritis (OA) Additional Past Medical History / Comment(s): glaucoma, hx migraines, hiatal hernia, arthritis in hands and feet, "leaky bladder" History of Any Multi-Drug Resistant Organisms: ESBL Date of last positivie culture/infection: 07/21/21 MDRO Source:: URINE ESBL Past Surgical History: Bowel Resection, Breast Surgery, Joint Replacement, Orthopedic Surgery Additional Past Surgical History / Comment(s): monae knee replacement, rt knee arthroscopy, breast biopsy, monae cataracts Past Anesthesia/Blood Transfusion Reactions: Motion Sickness Past Psychological History: Anxiety, Depression Smoking Status: Never smoker Past Alcohol Use History: None Reported Past Drug Use History: None Reported - Past Family History Brother(s) Family Medical History: Cancer Additional Family Medical History / Comment(s): leukemia <Miya Ibrahim - Last Filed: 07/17/22 10:15> General Exam Limitations: no limitations General appearance: alert, in no apparent distress Head exam: Present: atraumatic, normocephalic, normal inspection Eye exam: Present: normal appearance, PERRL, EOMI. Absent: scleral icterus, conjunctival injection, periorbital swelling ENT exam: Present: normal exam, mucous membranes moist Neck exam: Present: normal inspection. Absent: tenderness, meningismus, lymp hadenopathy Respiratory exam: Present: normal lung sounds bilaterally. Absent: respiratory distress, wheezes, rales, rhonchi, stridor Cardiovascular Exam: Present: regular rate, normal rhythm, normal heart sounds. Absent: systolic murmur, diastolic murmur, rubs, gallop, clicks GI/Abdominal exam: Present: soft, tenderness (epigastric), normal bowel sounds. Absent: distended, guarding, rebound, rigid Extremities exam: Present: normal inspection, full ROM, normal capillary refill. Absent: tenderness, pedal edema, joint swelling, calf tenderness Back exam: Present: normal inspection Neurological exam: Present: alert, oriented X3, CN II-XII intact Psychiatric exam: Present: normal affect, normal mood Skin exam: Present: warm, dry, intact, normal color. Absent: rash <Miya Ibrahim - Last Filed: 07/17/22 10:15> Course Vital Signs 07/13/22 07/13/22 07/13/22 04:37 06:49 08:35 Temperature 97.9 F Pulse Rate 70 72 72 Respiratory 16 16 13 Rate Blood Pressure 156/81 161/62 161/62 O2 Sat by Pulse 98 96 99 Oximetry 07/13/22 07/13/22 07/13/22 09:00 09:30 09:48 Temperature Pulse Rate 71 74 74 Respiratory 15 16 15 Rate Blood Pressure 161/62 130/70 140/83 O2 Sat by Pulse 99 100 96 Oximetry Medical Decision Making - Lab Data Result diagrams: 07/13/22 05:52 07/13/22 05:52 <Krish Barrios - Last Filed: 07/13/22 09:34> - Lab Data Result diagrams: 07/13/22 05:52 07/13/22 05:52 <Miya Ibrahim - Last Filed: 07/17/22 10:15> - Medical Decision Making On arrival patient was placed into room 24. Thorough history and physical exam was performed. IV access is established laboratory studies are conducted and reviewed. CT is ordered. Patient will be signed out to Dr. Robins (Miya Ibrahim) - Lab Data Lab Results 07/13/22 07/13/22 07/13/22 Range/Units 05:52 05:52 05:52 WBC 11.0 H (3.8-10.6) k/uL RBC 4.45 (3.80-5.40) m/uL Hgb 13.8 (11.4-16.0) gm/dL Hct 40.8 (34.0-46.0) % MCV 91.6 (80.0-100.0) fL MCH 31.1 (25.0-35.0) pg MCHC 33.9 (31.0-37.0) g/dL RDW 13.5 (11.5-15.5) % Plt Count 207 (150-450) k/uL MPV 9.2 Neutrophils % 59 % Lymphocytes % 26 % Monocytes % 5 % Eosinophils % 7 % Basophils % 1 % Neutrophils # 6.5 (1.3-7.7) k/uL Lymphocytes # 2.9 (1.0-4.8) k/uL Monocytes # 0.6 (0-1.0) k/uL Eosinophils # 0.8 H (0-0.7) k/uL Basophils # 0.1 (0-0.2) k/uL PT 10.6 (9.0-12.0) sec INR 1.0 (<1.2) APTT 22.7 (22.0-30.0) sec Sodium 137 (137-145) mmol/L Potassium 3.5 (3.5-5.1) mmol/L Chloride 100 (98-107) mmol/L Carbon Dioxide 26 (22-30) mmol/L Anion Gap 11 mmol/L BUN 18 H (7-17) mg/dL Creatinine 0.60 (0.52-1.04) mg/dL Est GFR (CKD-EPI)AfAm >90 (>60 ml/min/1.73 sqM) Est GFR (CKD-EPI)NonAf 88 (>60 ml/min/1.73 sqM) Glucose 98 (74-99) mg/dL Plasma Lactic Acid Guero (0.7-2.0) mmol/L Calcium 9.0 (8.4-10.2) mg/dL Total Bilirubin 1.7 H (0.2-1.3) mg/dL AST 24 (14-36) U/L ALT 18 (4-34) U/L Alkaline Phosphatase 52 (38-126) U/L Troponin I (0.000-0.034) ng/mL Total Protein 7.1 (6.3-8.2) g/dL Albumin 4.4 (3.5-5.0) g/dL Lipase 14 L (23-300) U/L Urine Color Urine Appearance (Clear) Urine pH (5.0-8.0) Ur Specific [place] (1.001-1.035) Urine Protein (Negative) Urine Glucose (UA) (Negative) Urine Ketones (Negative) Urine Blood (Negative) Urine Nitrite (Negative) Urine Bilirubin (Negative) Urine Urobilinogen (<2.0) mg/dL Ur Leukocyte Esterase (Negative) Urine RBC (0-5) /hpf Urine WBC (0-5) /hpf Ur Squamous Epith Cells (0-4) /hpf Urine Bacteria (None) /hpf 07/13/22 07/13/22 07/13/22 Range/Units 05:52 06:49 08:31 WBC (3.8-10.6) k/uL RBC (3.80-5.40) m/uL Hgb (11.4-16.0) gm/dL Hct (34.0-46.0) % MCV (80.0-100.0) fL MCH (25.0-35.0) pg MCHC (31.0-37.0) g/dL RDW (11.5-15.5) % Plt Count (150-450) k/uL MPV Neutrophils % % Lymphocytes % % Monocytes % % Eosinophils % % Basophils % % Neutrophils # (1.3-7.7) k/uL Lymphocytes # (1.0-4.8) k/uL Monocytes # (0-1.0) k/uL Eosinophils # (0-0.7) k/uL Basophils # (0-0.2) k/uL PT (9.0-12.0) sec INR (<1.2) APTT (22.0-30.0) sec Sodium (137-145) mmol/L Potassium (3.5-5.1) mmol/L Chloride (98-107) mmol/L Carbon Dioxide (22-30) mmol/L Anion Gap mmol/L BUN (7-17) mg/dL Creatinine (0.52-1.04) mg/dL Est GFR (CKD-EPI)AfAm (>60 ml/min/1.73 sqM) Est GFR (CKD-EPI)NonAf (>60 ml/min/1.73 sqM) Glucose (74-99) mg/dL Plasma Lactic Acid [place] 0.8 (0.7-2.0) mmol/L Calcium (8.4-10.2) mg/dL Total Bilirubin (0.2-1.3) mg/dL AST (14-36) U/L ALT (4-34) U/L Alkaline Phosphatase (38-126) U/L Troponin I <0.012 (0.000-0.034) ng/mL Total Protein (6.3-8.2) g/dL Albumin (3.5-5.0) g/dL Lipase (23-300) U/L Urine Color Colorless Urine Appearance Clear (Clear) Urine pH 7.5 (5.0-8.0) Ur Specific [place] 1.037 H (1.001-1.035) Urine Protein Negative (Negative) Urine Glucose (UA) Negative (Negative) Urine Ketones 1+ H (Negative) Urine Blood Negative (Negative) Urine Nitrite Negative (Negative) Urine Bilirubin Negative (Negative) Urine Urobilinogen <2.0 (<2.0) mg/dL Ur Leukocyte Esterase Large H (Negative) Urine RBC 5 (0-5) /hpf Urine WBC 64 H (0-5) /hpf Ur Squamous Epith Cells <1 (0-4) /hpf Urine Bacteria Occasional H (None) /hpf - EKG Data EKG Comments: EKG demonstrates sinus rhythm with a rate of 66. UT interval 141. QRS 89. QTC of 439. No acute ST segment elevations or depressions (Miya Ibrahim) Disposition Is patient prescribed a controlled substance at d/c from ED?: No <Krish Barrios - Last Filed: 07/13/22 09:34> <Miya Ibrahim - Last Filed: 07/17/22 10:15> Clinical Impression: Abdominal pain, Urinary tract infection Disposition: HOME SELF-CARE Condition: Good Instructions (If sedation given, give patient instructions): Urinary Tract Infection in Women (ED), Abdominal Pain (ED) Prescriptions: Ondansetron Odt [Zofran ODT] 4 mg PO Q8HR PRN #10 tab PRN Reason: Nausea Referrals: Kimo De Anda DO [Primary Care Provider] - 1-2 days
--- NOTE | 2022-07-13 07:57 | CT ---
EXAMINATION TYPE: CT abdomen pelvis w con CT DLP: 847.4 mGycm, Automated exposure control for dose reduction was used. DATE OF EXAM: 07/13/2022 7:45 AM COMPARISON: CT abdomen pelvis most recent from 08/02/2019 . CLINICAL INDICATION:Female, 76 years old with history of abdominal pain; TECHNIQUE: Standard CT of the abdomen and pelvis following the administration of 100 cc of Isovue 3 00 IV contrast material. Coronal and sagittal reformats were performed. FINDINGS: LOWER CHEST: Posterior dependent subsegmental atelectasis is noted. Elevation of the right hemidiaphr agm. ABDOMEN LIVER: Unremarkable GALLBLADDER AND BILE DUCTS: Unremarkable. PANCREAS: Fatty infiltration. SPLEEN: Unremarkable. ADRENAL GLANDS: Unremarkable. KIDNEYS AND URETERS: No evidence of hydronephrosis or renal calculus. The kidneys enhance symmetrical ly. Right inferior pole 5.7 cm cyst. Additional bilateral subcentimeter hypodense foci which are too small to characterize but likely represent cysts. Contrast is demonstrated within both collecting sys tems on the delayed phase. PELVIS BLADDER: Incompletely distended but grossly unremarkable. REPRODUCTIVE: Unremarkable. ABDOMEN & PELVIS STOMACH AND BOWEL: Moderate hiatal hernia, duodenum is unremarkable. Rectosigmoid anastomosis identif ied. Distal colonic diverticulosis without evidence for acute diverticulitis. The appendix is within normal limits. No evidence of bowel obstruction. PERITONEUM: No evidence of pneumoperitoneum or free fluid. VASCULATURE: Moderate atherosclerotic calcifications are present throughout the abdominal aorta and i ts branches. No evidence of aortic aneurysm. MUSCULOSKELETAL: No acute osseous abnormalities. No aggressive osseous lesion. Square curvature of th e thoracic lumbar spine. Mild retrolisthesis of L1 on L2. Grade 1 anterolisthesis of L5 on S1 without evidence of pars defects. Multilevel degenerative changes visualized spine. LYMPH NODES: No gross evidence for lymphadenopathy. SOFT TISSUE/ABDOMINAL WALL: Tiny fat filled periumbilical and umbilical hernias. IMPRESSION: 1. No acute abdominal/pelvic process. 2. Colonic diverticulosis without evidence for acute diverticulitis. 3. Moderate-sized hiatal hernia.
[2022-07-13 08:45] LABS: Appearance,Urine Clear (Clear); Bacteria,Urine Occasional /hpf; Bilirubin,Urine Negative (Negative); Blood,Urine Negative (Negative); Color,Urine Colorless; Glucose,Urine (UA) Negative (Negative); Ketones,Urine 1+ (Negative); Leukocyte Esterase,Urine Large (Negative); Nitrite,Urine Negative (Negative); PH, Urine 7.5 (5.0-8.0); Protein,Urine Negative (Negative); RBC,Urine 5 /hpf (0-5); Specific Gravity,Urine 1.037 (1.001-1.035); Squamous Epithelial Cell,Urine <1 /hpf (0-4); Urobilinogen,Urine <2.0 mg/dL (<2.0); WBC,Urine 64 /hpf (0-5)
[2022-07-13] MEDS ORDERED: SULFAMETHOX-TMP 800-160MG 1 EACH TAB PO STA (09:22)
[2022-07-13 09:47] VITALS: PULSE 74
[2022-07-13 09:50] VITALS: BP 140/83; RESP 15
== END 2022-07-13 09:55 | disposition home or self-care (01) ==
LOC: EC 04:12
DX: R10.13 Epigastric pain (principal); N39.0 Urinary tract infection, site not specified; J45.909 Unspecified asthma, uncomplicated; K21.9 Gastro-esophageal reflux disease without esophagitis; I10 Essential (primary) hypertension; M19.90 Unspecified osteoarthritis, unspecified site; F41.9 Anxiety disorder, unspecified; F32.A Depression, unspecified; Z88.0 Allergy status to penicillin; Z88.5 Allergy status to narcotic agent; Z79.82 Long term (current) use of aspirin; Z79.899 Other long term (current) drug therapy
CPT/HCPCS: 36415; 93005; 80053; 83605; 83690; 84484; 85025; 85610; 85730; 81001; 87086; 87077; 87186; 74177; 99284; 96374; 96375; 96376; J2270; J2405; Q9967

== ENCOUNTER 2022-07-16 13:10 | Inpatient (IN) | payer MEDICARE ==
[2022-07-16 14:16] LABS: Appearance,Urine Cloudy (Clear); Bacteria,Urine Occasional /hpf; Bilirubin,Urine Negative (Negative); Blood,Urine Negative (Negative); Budding Yeast,Urine Few /hpf; Color,Urine Yellow; Glucose,Urine (UA) Negative (Negative); Ketones,Urine Negative (Negative); Leukocyte Esterase,Urine Large (Negative); Mucus,Urine Rare /hpf; Nitrite,Urine Positive (Negative); PH, Urine 6.5 (5.0-8.0); Protein,Urine Trace (Negative); RBC,Urine 6 /hpf (0-5); Specific Gravity,Urine 1.015 (1.001-1.035); Urobilinogen,Urine <2.0 mg/dL (<2.0); WBC,Urine >182 /hpf (0-5)
[2022-07-16 15:09] LABS: Basophils # (A) 0.1 k/uL (0-0.2); Basophils % (A) 1 %; Eosinophils # (A) 0.4 k/uL (0-0.7); Eosinophils % (A) 4 %; HCT 40.4 % (34.0-46.0); HGB 13.4 gm/dL (11.4-16.0); Lymphocytes # (A) 1.2 k/uL (1.0-4.8); Lymphocytes % (A) 14 %; MCH 31.4 pg (25.0-35.0); MCHC 33.2 g/dL (31.0-37.0); MCV 94.7 fL (80.0-100.0); Mean Platelet Volume 9.1; Monocytes # (A) 0.3 k/uL (0-1.0); Monocytes % (A) 3 %; Neutrophils # (A) 7.1 k/uL (1.3-7.7); Neutrophils % (A) 78 %; Platelet Count 212 k/uL (150-450); RBC 4.27 m/uL (3.80-5.40); RDW 13.4 % (11.5-15.5); WBC 9.2 k/uL (3.8-10.6)
[2022-07-16 15:18] LABS: Calcium 8.7 mg/dL (8.4-10.2); Potassium 4.5 mmol/L (3.5-5.1)
[2022-07-16] MEDS ORDERED: ERTAPENEM 1 GM in SODIUM CHLORIDE 0.9% 50 ML IVPB STA ×2 (15:43→15:46)
[2022-07-16] MEDS ORDERED: NALOXONE 0.4 MG/ML 1 ML VIAL IV PRN (15:52)
--- NOTE | 2022-07-16 15:56 | ED ---
General Adult HPI - General Chief complaint: Urogenital Stated complaint: Abnormal Labs/Recheck Time Seen by Provider: 07/16/22 13:14 Source: patient Mode of arrival: ambulatory Limitations: no limitations - History of Present Illness Initial comments: Dictation was produced using Track dictation software. please excuse any grammatical, word or spelling errors. Chief Complaint: 76-year-old female presents to the emergency department for ESBL UTI History of Present Illness: This 68-year-old female she presents to the emergency department for ESBL urinary tract infection. Patient has a history of frequent UTIs. She was seen here in emergency department 3 days ago where she was evaluated for abdominal pain. Patient reports that her abdominal symptoms resolve however she does have dysuria. Patient has no other complaints at this time. The ROS documented in this emergency department record has been reviewed and confirmed by me. Those systems with pertinent positive or negative responses have been documented in the HPI. All other systems are other negative and/or noncontributory. PHYSICAL EXAM: General Impression: Alert and oriented x3, not in acute distress HEENT: Normocephalic atraumatic, extra-ocular movements intact, pupils equal and reactive to light bilaterally, mucous membranes moist. Cardiovascular: Heart regular rate and rhythm Chest: Able to complete full sentences, no retractions, no tachypnea Abdomen: abdomen soft, non-tender, non-distended, no organomegaly Musculoskeletal: Pulses present and equal in all extremities, no peripheral edema Motor: no focal deficits noted Neurological: CN II-XII grossly intact, no focal motor or sensory deficits noted Skin: Intact with no visualized rashes Psych: Normal affect and mood ED course: 76-year-old female presents to the emergency department for ESBL UTI. Patient had urine studies ordered from 3 days ago. Cultures and sensitivities resulted. Microbiology results show that patient has ESBL vital signs upon arrival are within acceptable limits. Physical examination is benign. Patient in no acute distress. Patient ALLERGIC to penicillin. Patient ordered for ertapenem. She'll be admitted with consultation infectious disease. - Related Data Home Medications Medication Instructions Recorded Confirmed Aspirin [Adult Low Dose Aspirin EC] 81 mg PO DAILY 07/15/17 07/29/21 Felodipine [Felodipine ER] 5 mg PO DAILY 07/15/17 07/29/21 Montelukast [Singulair] 10 mg PO HS 07/15/17 07/29/21 Potassium Chloride ER [K-Dur 20] 20 meq PO BID 07/15/17 07/29/21 hydroCHLOROthiazide 25 mg PO Q48H 07/15/17 07/29/21 predniSONE 5 mg PO DAILY 07/15/17 07/29/21 Esomeprazole Magnesium 40 mg PO DAILY 09/03/19 07/29/21 Metoprolol Tartrate [Lopressor] 25 mg PO BID 06/11/20 07/29/21 Benzonatate [Tessalon Perles] 200 mg PO TID PRN 07/29/21 07/29/21 Fluticasone Propionate [Flovent 1 puff INHALATION RT-DAILY 07/29/21 07/29/21 Hfa 220 mcg] Rosuvastatin [Crestor] 10 mg PO DAILY 07/29/21 07/29/21 cycloSPORINE 0.05% OPHTH SOLN 1 drop BOTH EYES BID 07/29/21 07/29/21 [Restasis] Previous Rx's Medication Instructions Recorded Ondansetron Odt [Zofran ODT] 4 mg PO Q8HR PRN #10 tab 07/13/22 Sulfamethox-Tmp 800-160Mg [Bactrim 1 each PO Q12HR #6 tab 07/13/22 Ds] Allergies Allergy/AdvReac Type Severity Reaction Status Date / Time Penicillins Allergy Rash/Hives Verified 07/16/22 13:28 codeine AdvReac Nausea & Verified 07/16/22 13:28 Vomiting meperidine [From Demerol] AdvReac Nausea & Verified 07/16/22 13:28 Vomiting Review of Systems ROS Statement: Those systems with pertinent positive or pertinent negative responses have been documented in the HPI. ROS Other: All systems not noted in ROS Statement are negative. Past Medical History Past Medical History: Asthma, Eye Disorder, GERD/Reflux, Hypertension, Osteoarthritis (OA) Additional Past Medical History / Comment(s): glaucoma, hx migraines, hiatal hernia, arthritis in hands and feet, "leaky bladder" History of Any Multi-Drug Resistant Organisms: ESBL Date of last positivie culture/infection: 07/13/2022 MDRO Source:: URINE ESBL Past Surgical History: Bowel Resection, Breast Surgery, Joint Replacement, Orthopedic Surgery Additional Past Surgical History / Comment(s): monae knee replacement, rt knee arthroscopy, breast biopsy, monae cataracts Past Anesthesia/Blood Transfusion Reactions: Motion Sickness Past Psychological History: Anxiety, Depression Smoking Status: Never smoker Past Alcohol Use History: None Reported Past Drug Use History: None Reported - Past Family History Brother(s) Family Medical History: Cancer Additional Family Medical History / Comment(s): leukemia General Exam Limitations: no limitations Course Vital Signs 07/16/22 13:26 Temperature 97.6 F Pulse Rate 71 Respiratory 16 Rate Blood Pressure 139/67 O2 Sat by Pulse 92 L Oximetry Medical Decision Making - Lab Data Result diagrams: 07/16/22 14:54 07/16/22 14:54 Lab Results 07/16/22 07/16/22 07/16/22 Range/Units 13:29 14:54 14:54 WBC 9.2 (3.8-10.6) k/uL RBC 4.27 (3.80-5.40) m/uL Hgb 13.4 (11.4-16.0) gm/dL Hct 40.4 (34.0-46.0) % MCV 94.7 (80.0-100.0) fL MCH 31.4 (25.0-35.0) pg MCHC 33.2 (31.0-37.0) g/dL RDW 13.4 (11.5-15.5) % Plt Count 212 (150-450) k/uL MPV 9.1 Neutrophils % 78 % Lymphocytes % 14 % Monocytes % 3 % Eosinophils % 4 % Basophils % 1 % Neutrophils # 7.1 (1.3-7.7) k/uL Lymphocytes # 1.2 (1.0-4.8) k/uL Monocytes # 0.3 (0-1.0) k/uL Eosinophils # 0.4 (0-0.7) k/uL Basophils # 0.1 (0-0.2) k/uL Sodium 138 (137-145) mmol/L Potassium 4.5 (3.5-5.1) mmol/L Chloride 103 (98-107) mmol/L Carbon Dioxide 25 (22-30) mmol/L Anion Gap 10 mmol/L BUN 19 H (7-17) mg/dL Creatinine 0.81 (0.52-1.04) mg/dL Est GFR (CKD-EPI)AfAm 81 (>60 ml/min/1.73 sqM) Est GFR (CKD-EPI)NonAf 70 (>60 ml/min/1.73 sqM) Glucose 121 H (74-99) mg/dL Calcium 8.7 (8.4-10.2) mg/dL Urine Color Yellow Urine Appearance Cloudy H (Clear) Urine pH 6.5 (5.0-8.0) Ur Specific [place] 1.015 (1.001-1.035) Urine Protein Trace H (Negative) Urine Glucose (UA) Negative (Negative) Urine Ketones Negative (Negative) Urine Blood Negative (Negative) Urine Nitrite Positive H (Negative) Urine Bilirubin Negative (Negative) Urine Urobilinogen <2.0 (<2.0) mg/dL Ur Leukocyte Esterase Large H (Negative) Urine RBC 6 H (0-5) /hpf Urine WBC >182 H (0-5) /hpf Urine Bacteria Occasional H (None) /hpf Urine Mucus Rare H (None) /hpf Urine Yeast (Budding) Few H (None) /hpf Disposition Clinical Impression: UTI due to extended-spectrum beta lactamase (ESBL) producing Escherichia coli Disposition: ADMITTED IP TO THIS HOSP Condition: Fair Referrals: Kimo De Anda DO [Primary Care Provider] - 1-2 days Decision Time: 15:56
[2022-07-16] MEDS: SODIUM CHLORIDE 0.9% 1,000 ML IV SCH (17:00)
--- NOTE | 2022-07-17 08:51 | P.CONS ---
History of Present Illness - Reason for Consult Consult date: 07/16/22 - History of Present Illness Patient is a 76-year-old female with a past medical history difficult for hypertension osteoarthritis history of recurrent UTI previously has grown ESBL E. coli presenting to the hospital for evaluation of abdominal pain patient also complaining of urinary burning and frequency symptom has been going on for about 3 days pain is mostly to the flank area more of a dull aching 3-4 out of 10 and radiation patient was evaluated in the ER on 07/13/2022 and subsequent discharged home with a urine cultures coming back for ESBL E. coli patient advised to come back to the hospital patient on presentation to the hospital was afebrile patient did have a normal white count did have a positive UA patient was started on Invanz infectious disease was consulted for further management of antibiotic therapy Past Medical History Past Medical History: Asthma, Eye Disorder, GERD/Reflux, Hypertension, Osteoarthritis (OA) Additional Past Medical History / Comment(s): glaucoma, hx migraines, hiatal hernia, arthritis in hands and feet, "leaky bladder" History of Any Multi-Drug Resistant Organisms: ESBL Year Discovered:: 07/13/2022 MDRO Source:: URINE ESBL Past Surgical History: Bowel Resection, Breast Surgery, Joint Replacement, Orthopedic Surgery Additional Past Surgical History / Comment(s): monae knee replacement, rt knee arthroscopy, breast biopsy, monae cataracts Past Anesthesia/Blood Transfusion Reactions: Motion Sickness Past Psychological History: Anxiety, Depression Smoking Status: Never smoker Past Alcohol Use History: None Reported Past Drug Use History: None Reported - Past Family History Brother(s) Family Medical History: Cancer Additional Family Medical History / Comment(s): leukemia Medications and Allergies Home Medications Medication Instructions Recorded Confirmed Type Aspirin [Adult Low Dose Aspirin EC] 81 mg PO DAILY 07/15/17 07/16/22 History Felodipine [Felodipine ER] 5 mg PO DAILY 07/15/17 07/16/22 History Montelukast [Singulair] 10 mg PO HS 07/15/17 07/16/22 History Potassium Chloride ER [K-Dur 20] 20 meq PO BID 07/15/17 07/16/22 History hydroCHLOROthiazide 25 mg PO Q48H 07/15/17 07/16/22 History predniSONE 5 mg PO DAILY 07/15/17 07/16/22 History Esomeprazole Magnesium 40 mg PO DAILY 09/03/19 07/16/22 History Metoprolol Tartrate [Lopressor] 25 mg PO BID 06/11/20 07/16/22 History Fluticasone Propionate [Flovent 1 puff INHALATION RT-DAILY 07/29/21 07/16/22 History Hfa 220 mcg] Rosuvastatin [Crestor] 10 mg PO HS 07/29/21 07/16/22 History cycloSPORINE 0.05% OPHTH SOLN 1 drop BOTH EYES BID 07/29/21 07/16/22 History [Restasis] Ondansetron Odt [Zofran ODT] 4 mg PO Q8HR PRN #10 tab 07/13/22 07/16/22 Rx Sulfamethox-Tmp 800-160Mg [Bactrim 1 tab PO Q12HR 07/16/22 07/16/22 History Ds] Tolterodine ER [Detrol LA] 4 mg PO HS 07/16/22 07/16/22 History Allergies Allergy/AdvReac Type Severity Reaction Status Date / Time Penicillins Allergy Rash/Hives Verified 07/16/22 16:10 codeine AdvReac Nausea & Verified 07/16/22 16:10 Vomiting meperidine [From Demerol] AdvReac Nausea & Verified 07/16/22 16:10 Vomiting Physical Exam Vitals: Vital Signs Temp Pulse Resp BP Pulse Ox 07/16/22 13:26 97.6 F 71 16 139/67 92 L Intake and Output 07/16/22 07/16/22 07/16/22 06:59 14:59 22:59 Other: Weight 68.492 kg Results CBC & Chem 7: 07/16/22 14:54 07/16/22 14:54 Labs: Abnormal Lab Results - Last 24 Hours (Table) 07/16/22 07/16/22 Range/Units 13:29 14:54 BUN 19 H (7-17) mg/dL Glucose 121 H (74-99) mg/dL Urine Appearance Cloudy H (Clear) Urine Protein Trace H (Negative) Urine Nitrite Positive H (Negative) Ur Leukocyte Esterase Large H (Negative) Urine RBC 6 H (0-5) /hpf Urine WBC >182 H (0-5) /hpf Urine Bacteria Occasional H (None) /hpf Urine Mucus Rare H (None) /hpf Urine Yeast (Budding) Few H (None) /hpf Assessment and Plan Plan: 1patient with a history of recurrent urinary tract infection recently evaluated in the ER on 07/13/2022 was complaining of mostly abdominal pain at that point the patient did have a positive UA and urine has not been finalized with ESBL E. coli reported the patient was advised to come back to the hospital he did have a positive UA patient did have a CT of abdominal pelvis on 07/13/2022 there is no evidence of any hydronephrosis or renal calculus bladder was incompletely distended possible cystitis not behaving as deep infection such as pyelonephritis in this patient with no fever or elevated white count. 2continue patient on Invanz 1 g daily while waiting for repeat urine culture to finalize. we will follow on clinical condition and cultures to further adjust medication if needed Thank you for this consultation will follow this patient along with you Time with Patient: Greater than 30
[2022-07-17] MEDS: ASPIRIN 81 MG PO SCH (08:54)
[2022-07-17] MEDS: POTASSIUM CHLORIDE ER 20 MEQ TAB.ER PO SCH ×2 (08:54→20:18)
[2022-07-17] MEDS: amLODIPine 5 MG TAB PO SCH (08:54)
[2022-07-17] MEDS: METOPROLOL TARTRATE 25 MG TAB PO SCH ×2 (08:54→20:18)
[2022-07-17] MEDS: predniSONE 5 MG TAB PO SCH (09:07)
[2022-07-17] MEDS: cycloSPORINE 0.05% OPHTH 0.4 ML DROPERETTE BOTH EYES SCH ×2 (09:07→20:18)
--- NOTE | 2022-07-17 12:04 | P.HPIM ---
History of Present Illness 76-year-old female was recently seen in ER for symptoms of EGA which is urinary burning and urinary urgency and frequency patient was discharged home on oral antibiotics, Bactrim. Wound cultures were done during that time showed E. coli ESBL because of which patient was called back for admission. Patient still had slight symptoms at the time of admission doesn't have any fever doesn't have leukocytosis patient was started on ertapenem. REVIEW OF SYSTEMS: CONSTITUTIONAL: No fever, no malaise, no fatigue. HEENT: No recent visual problems or hearing problems. Denied any sore throat. CARDIOVASCULAR: No chest pain, orthopnea, PND, no palpitations, no syncope. PULMONARY: No shortness of breath, no cough, no hemoptysis. GASTROINTESTINAL: No diarrhea, no nausea, no vomiting, no abdominal pain. NEUROLOGICAL: No headaches, no weakness, no numbness. HEMATOLOGICAL: Denies any bleeding or petechiae. GENITOURINARY: As mentioned in HPI MUSCULOSKELETAL/RHEUMATOLOGICAL: Denies any joint pain, swelling, or any muscle pain. ENDOCRINE: Denies any polyuria or polydipsia. The rest of the 14-point review of systems is negative. PHYSICAL EXAMINATION: GENERAL: The patient is alert and oriented x3, not in any acute distress. Well developed, well nourished. HEENT: Pupils are round and equally reacting to light. EOMI. No scleral icterus. No conjunctival pallor. Normocephalic, atraumatic. No pharyngeal erythema. No thyromegaly. CARDIOVASCULAR: S1 and S2 present. No murmurs, rubs, or gallops. PULMONARY: Chest is clear to auscultation, no wheezing or crackles. ABDOMEN: Soft, nontender, nondistended, normoactive bowel sounds. No palpable organomegaly. MUSCULOSKELETAL: No joint swelling or deformity. EXTREMITIES: No cyanosis, clubbing, or pedal edema. NEUROLOGICAL: Gross neurological examination did not reveal any focal deficits. SKIN: No rashes. Assessment and plan -Urine output tract infection with E. coli, ESBL continue with ertapenem patient had a CT of the abdomen and pelvis during her visits to ER in 13 of July which did not show any hydronephrosis or nephrolithiasis. -Asthma without any acute exacerbation -Gases. His reflux disease -Hypertension -Depression DVT prophylaxis: Lovenox Past Medical History Past Medical History: Asthma, Eye Disorder, GERD/Reflux, Hypertension, Osteoarthritis (OA) Additional Past Medical History / Comment(s): glaucoma, hx migraines, hiatal hernia, arthritis in hands and feet, "leaky bladder" History of Any Multi-Drug Resistant Organisms: ESBL Date of last positivie culture/infection: 07/13/2022 MDRO Source:: URINE ESBL Past Surgical History: Bowel Resection, Breast Surgery, Joint Replacement, Orthopedic Surgery Additional Past Surgical History / Comment(s): monae knee replacement, rt knee arthroscopy, breast biopsy, monae cataracts Past Anesthesia/Blood Transfusion Reactions: Motion Sickness Past Psychological History: Anxiety, Depression Smoking Status: Never smoker Past Alcohol Use History: None Reported Past Drug Use History: None Reported - Past Family History Brother(s) Family Medical History: Cancer Additional Family Medical History / Comment(s): leukemia Medications and Allergies Home Medications Medication Instructions Recorded Confirmed Type Aspirin [Adult Low Dose Aspirin EC] 81 mg PO DAILY 07/15/17 07/16/22 History Felodipine [Felodipine ER] 5 mg PO DAILY 07/15/17 07/16/22 History Montelukast [Singulair] 10 mg PO HS 07/15/17 07/16/22 History Potassium Chloride ER [K-Dur 20] 20 meq PO BID 07/15/17 07/16/22 History hydroCHLOROthiazide 25 mg PO Q48H 07/15/17 07/16/22 History predniSONE 5 mg PO DAILY 07/15/17 07/16/22 History Esomeprazole Magnesium 40 mg PO DAILY 09/03/19 07/16/22 History Metoprolol Tartrate [Lopressor] 25 mg PO BID 06/11/20 07/16/22 History Fluticasone Propionate [Flovent 1 puff INHALATION RT-DAILY 07/29/21 07/16/22 History Hfa 220 mcg] Rosuvastatin [Crestor] 10 mg PO HS 07/29/21 07/16/22 History cycloSPORINE 0.05% OPHTH SOLN 1 drop BOTH EYES BID 07/29/21 07/16/22 History [Restasis] Ondansetron Odt [Zofran ODT] 4 mg PO Q8HR PRN #10 tab 07/13/22 07/16/22 Rx Sulfamethox-Tmp 800-160Mg [Bactrim 1 tab PO Q12HR 07/16/22 07/16/22 History Ds] Tolterodine ER [Detrol LA] 4 mg PO HS 07/16/22 07/16/22 History Allergies Allergy/AdvReac Type Severity Reaction Status Date / Time Penicillins Allergy Rash/Hives Verified 07/16/22 16:10 codeine AdvReac Nausea & Verified 07/16/22 16:10 Vomiting meperidine [From Demerol] AdvReac Nausea & Verified 07/16/22 16:10 Vomiting Physical Exam Vitals: Vital Signs Temp Pulse Pulse Resp BP BP BP 07/17/22 08:00 98.0 F 83 17 181/74 07/17/22 02:44 97.8 F 73 18 173/78 07/16/22 21:18 97.9 F 70 17 122/62 07/16/22 20:00 18 07/16/22 16:19 71 18 147/71 07/16/22 13:26 97.6 F 71 16 139/67 Pulse Ox 07/17/22 08:00 97 07/17/22 02:44 97 07/16/22 21:18 91 L 07/16/22 20:00 07/16/22 16:19 98 07/16/22 13:26 92 L Intake and Output 07/16/22 07/17/22 07/17/22 22:59 06:59 14:59 Other: Voiding Method Toilet Toilet # Voids 2 Weight 68.492 kg Results CBC & Chem 7: 07/16/22 14:54 07/16/22 14:54 Labs: Abnormal Lab Results - Last 24 Hours (Table) 07/16/22 07/16/22 Range/Units 13:29 14:54 BUN 19 H (7-17) mg/dL Glucose 121 H (74-99) mg/dL Urine Appearance Cloudy H (Clear) Urine Protein Trace H (Negative) Urine Nitrite Positive H (Negative) Ur Leukocyte Esterase Large H (Negative) Urine RBC 6 H (0-5) /hpf Urine WBC >182 H (0-5) /hpf Urine Bacteria Occasional H (None) /hpf Urine Mucus Rare H (None) /hpf Urine Yeast (Budding) Few H (None) /hpf Microbiology - Last 24 Hours (Table) 07/16/22 13:29 Urine Culture - Preliminary Urine,Clean Catch Thrombosis Risk Factor Assmnt - Choose All That Apply Each Risk Factor Represents 3 Points: Age 75 years or older Thrombosis Risk Factor Assessment Total Risk Factor Score: 3 Thrombosis Risk Factor Assessment Level: Moderate Risk
[2022-07-17] MEDS: SODIUM CHLORIDE 0.9% 1,000 ML IV SCH (15:03)
[2022-07-17] MEDS: ERTAPENEM 1 GM in SODIUM CHLORIDE 0.9% 50 ML IVPB SCH (15:03)
[2022-07-17] MEDS: OXYBUTYNIN 10 MG TAB.ER.24 PO SCH (20:18)
[2022-07-17] MEDS: MONTELUKAST 10 MG TAB PO SCH (20:18)
[2022-07-17] MEDS: ATORVASTATIN 20 MG TAB PO SCH (20:18)
[2022-07-18] MEDS: FLUTICASONE 220 MCG INHALER INHALATION SCH (07:25)
[2022-07-18] MEDS: cycloSPORINE 0.05% OPHTH 0.4 ML DROPERETTE BOTH EYES SCH ×2 (07:50→20:20)
[2022-07-18] MEDS: ASPIRIN 81 MG PO SCH (07:51)
[2022-07-18] MEDS: amLODIPine 5 MG TAB PO SCH (07:51)
[2022-07-18] MEDS: METOPROLOL TARTRATE 25 MG TAB PO SCH ×2 (07:51→20:19)
[2022-07-18] MEDS: predniSONE 5 MG TAB PO SCH (07:51)
[2022-07-18] MEDS: hydroCHLOROthiazide 25 MG TAB PO SCH (07:51)
[2022-07-18] MEDS: POTASSIUM CHLORIDE ER 20 MEQ TAB.ER PO SCH ×2 (07:51→20:20)
[2022-07-18] MEDS: ENOXAPARIN 40 MG/0.4 ML SYRINGE SQ SCH (07:52)
--- NOTE | 2022-07-18 13:29 | P.PN ---
Subjective 76-year-old female was recently seen in ER for symptoms of EGA which is urinary burning and urinary urgency and frequency patient was discharged home on oral antibiotics, Bactrim. Wound cultures were done during that time showed E. coli ESBL because of which patient was called back for admission. Patient still had slight symptoms at the time of admission doesn't have any fever doesn't have leukocytosis patient was started on ertapenem. 07/18/2022 Patient will be continued on ertapenem completed 3 days of therapy by tomorrow and will be discharged tomorrow patient has a ESBL E. coli and repeat cultures as well PHYSICAL EXAMINATION: GENERAL: The patient is alert and oriented x3, not in any acute distress. Well developed, well nourished. HEENT: Pupils are round and equally reacting to light. EOMI. No scleral icterus. No conjunctival pallor. Normocephalic, atraumatic. No pharyngeal erythema. No thyromegaly. CARDIOVASCULAR: S1 and S2 present. No murmurs, rubs, or gallops. PULMONARY: Chest is clear to auscultation, no wheezing or crackles. ABDOMEN: Soft, nontender, nondistended, normoactive bowel sounds. No palpable organomegaly. MUSCULOSKELETAL: No joint swelling or deformity. EXTREMITIES: No cyanosis, clubbing, or pedal edema. NEUROLOGICAL: Gross neurological examination did not reveal any focal deficits. SKIN: No rashes. Assessment and plan -Urine output tract infection with E. coli, ESBL continue with ertapenem, discharge tomorrow -Asthma without any acute exacerbation -Gases. His reflux disease -Hypertension -Depression DVT prophylaxis: Lovenox Objective - Vital Signs Vital signs: Vital Signs Temp 97.6 F 07/18/22 08:00 Pulse 61 07/18/22 08:00 Resp 16 07/18/22 08:00 BP 164/77 07/18/22 08:00 Pulse Ox 95 07/18/22 08:00 FiO2 Intake & Output 07/17/22 07/18/22 07/18/22 18:59 06:59 18:59 Intake Total 125 Balance 125 Intake: Oral 125 Other: Voiding Method Toilet Toilet Toilet # Voids 1 1 - Labs CBC & Chem 7: 07/16/22 14:54 07/16/22 14:54 Labs: Microbiology - Last 24 Hours (Table) 07/16/22 13:29 Urine Culture - Final Urine,Clean Catch Escherichia coli
[2022-07-18] MEDS: ERTAPENEM 1 GM in SODIUM CHLORIDE 0.9% 50 ML IVPB SCH (15:01)
[2022-07-18] MEDS: SODIUM CHLORIDE 0.9% 1,000 ML IV SCH (15:01)
[2022-07-18] MEDS: ATORVASTATIN 20 MG TAB PO SCH (20:19)
[2022-07-18] MEDS: OXYBUTYNIN 10 MG TAB.ER.24 PO SCH (20:19)
[2022-07-18] MEDS: MONTELUKAST 10 MG TAB PO SCH (20:19)
[2022-07-19] MEDS: FLUTICASONE 220 MCG INHALER INHALATION SCH (07:44)
[2022-07-19] MEDS: ENOXAPARIN 40 MG/0.4 ML SYRINGE SQ SCH (08:39)
[2022-07-19] MEDS: POTASSIUM CHLORIDE ER 20 MEQ TAB.ER PO SCH ×2 (08:39→20:21)
[2022-07-19] MEDS: ASPIRIN 81 MG PO SCH (08:39)
[2022-07-19] MEDS: amLODIPine 10 MG TAB PO SCH (08:39)
[2022-07-19] MEDS: cycloSPORINE 0.05% OPHTH 0.4 ML DROPERETTE BOTH EYES SCH ×2 (08:39→20:04)
[2022-07-19] MEDS: METOPROLOL TARTRATE 25 MG TAB PO SCH ×2 (08:39→20:03)
[2022-07-19] MEDS: predniSONE 5 MG TAB PO SCH (08:40)
--- NOTE | 2022-07-19 09:23 | P.PN ---
Subjective Progress Note Date: 07/17/22 Principal diagnosis: ESBL E. coli UTI Patient is a 76-year-old female presented to the hospital initially for abdominal pain did have a positive urine culture was ESBL subsequently called back, the hospital for IV antibiotics. On today's evaluation that is 07/17/2022, the patient denies having any fever or chills, patient abdominal pain has resolved patient denies having any nausea no vomiting no chest pain shortness of breath or cough Objective - Vital Signs Vital signs: Vital Signs Temp 98.0 F 07/17/22 08:00 Pulse 83 07/17/22 08:00 Resp 17 07/17/22 08:00 BP 181/74 07/17/22 08:00 Pulse Ox 97 07/17/22 08:00 FiO2 Intake & Output 07/16/22 07/17/22 07/17/22 18:59 06:59 18:59 Weight 68.492 kg Other: Voiding Method Toilet Toilet # Voids 2 - Exam GENERAL DESCRIPTION: An elderly female lying in bed in no distress RESPIRATORY SYSTEM: Unlabored breathing , decreased breath sounds at bases HEART: S1 S2 regular rate and rhythm , ABDOMEN: Soft , no tenderness EXTREMITIES: No edema feet - Labs CBC & Chem 7: 07/16/22 14:54 07/16/22 14:54 Labs: Abnormal Lab Results - Last 24 Hours (Table) 07/16/22 Range/Units 14:54 BUN 19 H (7-17) mg/dL Glucose 121 H (74-99) mg/dL Microbiology - Last 24 Hours (Table) 07/16/22 13:29 Urine Culture - Preliminary Urine,Clean Catch Assessment and Plan (1) UTI due to extended-spectrum beta lactamase (ESBL) producing Escherichia coli Current Visit: Yes Status: Acute Code(s): N39.0 - URINARY TRACT INFECTION, SITE NOT SPECIFIED; B96.29 - OTH ESCHERICHIA COLI THE CAUSE OF DISEASES CLASSD ELSWHR; Z16.12 - EXTENDED SPECTRUM BETA LACTAMASE (ESBL) RESISTANCE SNOMED Code(s): 226099896 Plan: 1patient with a history of recurrent urinary tract infection recently evaluated in the ER on 07/13/2022 was complaining of mostly abdominal pain at that point the patient did have a positive UA and urine has not been finalized with ESBL E. coli reported the patient was advised to come back to the hospital he did have a positive UA patient did have a CT of abdominal pelvis on 07/13/2022 there is no evidence of any hydronephrosis or renal calculus bladder was incompletely distended possible cystitis not behaving as deep infection such as pyelonephritis in this patient with no fever or elevated white count. 2patient to continue patient on Invanz 1 g daily while waiting for repeat urine culture to finalize. Time with Patient: Less than 30
--- NOTE | 2022-07-19 09:24 | P.PN ---
Subjective Progress Note Date: 07/18/22 Principal diagnosis: ESBL E. coli UTI Patient is a 76-year-old female presented to the hospital initially for abdominal pain did have a positive urine culture was ESBL subsequently called back, the hospital for IV antibiotics. On today's evaluation that is 07/18/2022, the patient remains to be afebrile, patient denies any nausea no vomiting, no abdominal pain, the patient denies having any chest pain shortness of breath or cough Objective - Vital Signs Vital signs: Vital Signs Temp 98.3 F 07/18/22 14:00 Pulse 62 07/18/22 14:00 Resp 16 07/18/22 14:00 BP 121/73 07/18/22 14:00 Pulse Ox 95 07/18/22 14:00 FiO2 Intake & Output 07/18/22 07/18/22 07/19/22 06:59 18:59 06:59 Other: Voiding Method Toilet Toilet Toilet # Voids 1 3 - Exam GENERAL DESCRIPTION: An elderly female lying in bed in no distress RESPIRATORY SYSTEM: Unlabored breathing , decreased breath sounds at bases HEART: S1 S2 regular rate and rhythm , ABDOMEN: Soft , no tenderness EXTREMITIES: No edema feet - Labs CBC & Chem 7: 07/16/22 14:54 07/16/22 14:54 Labs: Microbiology - Last 24 Hours (Table) 07/16/22 13:29 Urine Culture - Final Urine,Clean Catch Escherichia coli Assessment and Plan (1) UTI due to extended-spectrum beta lactamase (ESBL) producing Escherichia coli Current Visit: Yes Status: Acute Code(s): N39.0 - URINARY TRACT INFECTION, SITE NOT SPECIFIED; B96.29 - OTH ESCHERICHIA COLI THE CAUSE OF DISEASES CLASSD ELSWHR; Z16.12 - EXTENDED SPECTRUM BETA LACTAMASE (ESBL) RESISTANCE SNOMED Code(s): 873644441 Plan: 1patient with a history of recurrent urinary tract infection recently evaluated in the ER on 07/13/2022 was complaining of mostly abdominal pain at that point the patient did have a positive UA and urine has not been finalized with ESBL E. coli reported the patient was advised to come back to the hospital he did have a positive UA patient did have a CT of abdominal pelvis on 07/13/2022 there is no evidence of any hydronephrosis or renal calculus bladder was incompletely distended possible cystitis not behaving as deep infection such as pyelonephritis in this patient with no fever or elevated white count. 2patient clinically behaving more of a cystitis rather than pyelonephritis and 3-5 days of Invanz should be enough no need for midline or outpatient IV antibiotic on discharge Time with Patient: Less than 30
[2022-07-19] MEDS ORDERED: ACETAMINOPHEN TAB 325 MG TAB PO PRN (15:33)
[2022-07-19] MEDS ORDERED: BENZOCAINE/MENTHOL LOZENG 1 EACH LOZENGE MUCOUS MEM PRN (15:34)
[2022-07-19] MEDS: ERTAPENEM 1 GM in SODIUM CHLORIDE 0.9% 50 ML IVPB SCH (16:06)
[2022-07-19] MEDS: SODIUM CHLORIDE 0.9% 1,000 ML IV SCH (16:11)
[2022-07-19] MEDS: MONTELUKAST 10 MG TAB PO SCH (20:03)
[2022-07-19] MEDS: ATORVASTATIN 20 MG TAB PO SCH (20:03)
[2022-07-19] MEDS: OXYBUTYNIN 10 MG TAB.ER.24 PO SCH (20:03)
--- NOTE | 2022-07-20 06:03 | P.PN ---
Subjective Progress Note Date: 07/19/22 76-year-old female was recently seen in ER for symptoms of EGA which is urinary burning and urinary urgency and frequency patient was discharged home on oral antibiotics, Bactrim. Wound cultures were done during that time showed E. coli ESBL because of which patient was called back for admission. Patient still had slight symptoms at the time of admission doesn't have any fever doesn't have leukocytosis patient was started on ertapenem. 07/18/2022 Patient will be continued on ertapenem completed 3 days of therapy by tomorrow and will be discharged tomorrow patient has a ESBL E. coli and repeat cultures as well 07/19/2022 Patient is seen in follow-up today and continued on IV invanz with ID following. Recommend 5 days of IV invanz and patient is to receive a dose today and tomorrow am and will not require any antibiotics on discharge. Patient reports a light twinge of pain or discomfort while urinating and will add pyridium. Patient is afebrile and denies chest pain or shortness of breath. Encouraged increased activity as tolerated. Review of systems: Constitutional: No reports of fatigue, fever, or chills Cardiovascular: No reports of chest pain or palpitations Respiratory: No reports of shortness of breath or cough GI: No reports of nausea, vomiting, or diarrhea : No reports of dysuria or retention Neurovascular: No reports of weakness or numbness All medications have been reviewed PHYSICAL EXAMINATION: GENERAL: The patient is alert and oriented x3, not in any acute distress. Well developed, well nourished. HEENT: Pupils are round and equally reacting to light. EOMI. No scleral icterus. No conjunctival pallor. Normocephalic, atraumatic. No pharyngeal erythema. No thyromegaly. CARDIOVASCULAR: S1 and S2 present. No murmurs, rubs, or gallops. PULMONARY: Chest is clear to auscultation, no wheezing or crackles. ABDOMEN: Soft, nontender, nondistended, normoactive bowel sounds. No palpable organomegaly. MUSCULOSKELETAL: No joint swelling or deformity. EXTREMITIES: No cyanosis, clubbing, or pedal edema. NEUROLOGICAL: Gross neurological examination did not reveal any focal deficits. SKIN: No rashes. Assessment and plan -Urine output tract infection with E. coli, ESBL continue with ertapenem -Asthma without any acute exacerbation -gastroesophageal reflux disease -Hypertension -Depression -DVT prophylaxis: Lovenox Plan: Continue IV invanz for 24 more hours per ID recommendations and will discharge in 24 hours. Added pyridium for some relief. Continue with tylenol as needed. Encouraged oral intake and increased activity as tolerated. The impression and plan of care has been dictated by Leena Jaffe, Nurse Practitioner as directed. Dr. Jeff MD I have performed a history and examination and MDM of this patient, discussed the same with the dictator, and agree with the dictator's assessment and plan as written ,documented as a scribe. Based on total visit time, I have performed more than 50% of the visit. Objective - Vital Signs Vital signs: Vital Signs Temp 97.8 F 07/19/22 08:00 Pulse 66 07/19/22 08:00 Resp 16 07/19/22 08:00 BP 152/73 07/19/22 08:00 Pulse Ox 94 L 07/19/22 08:00 FiO2 Intake & Output 07/18/22 07/19/22 07/19/22 18:59 06:59 18:59 Intake Total 240 Balance 240 Intake: Oral 240 Other: Voiding Method Toilet Toilet # Voids 3 2 - Labs CBC & Chem 7: 07/16/22 14:54 07/16/22 14:54 Labs: Microbiology - Last 24 Hours (Table) 07/16/22 13:29 Urine Culture - Final Urine,Clean Catch Escherichia coli
[2022-07-20] MEDS: PHENAZOPYRIDINE 100 MG TAB PO SCH ×2 (06:29→09:16)
[2022-07-20] MEDS: FLUTICASONE 220 MCG INHALER INHALATION SCH (07:38)
--- NOTE | 2022-07-20 07:57 | P.PN ---
Subjective Progress Note Date: 07/19/22 Principal diagnosis: ESBL E. coli UTI Patient is a 76-year-old female presented to the hospital initially for abdominal pain did have a positive urine culture was ESBL subsequently called back, the hospital for IV antibiotics. On today's evaluation that is 07/19/2022 the patient remains to be afebrile, the patient is breathing comfortably no chest pain or shortness of breath or cough did have mild twinge at the time of urination but no suprapubic or flank pain no nausea vomiting or diarrhea Objective - Vital Signs Vital signs: Vital Signs Temp 98.4 F 07/19/22 13:44 Pulse 66 07/19/22 13:44 Resp 16 07/19/22 13:44 BP 127/76 07/19/22 13:44 Pulse Ox 91 L 07/19/22 13:44 FiO2 Intake & Output 07/18/22 07/19/22 07/19/22 18:59 06:59 18:59 Intake Total 240 Balance 240 Intake: Oral 240 Other: Voiding Method Toilet Toilet # Voids 3 2 - Exam GENERAL DESCRIPTION: An elderly female lying in bed in no distress RESPIRATORY SYSTEM: Unlabored breathing , decreased breath sounds at bases HEART: S1 S2 regular rate and rhythm , ABDOMEN: Soft , no tenderness EXTREMITIES: No edema feet - Labs CBC & Chem 7: 07/16/22 14:54 07/16/22 14:54 Labs: Microbiology - Last 24 Hours (Table) 07/16/22 13:29 Urine Culture - Final Urine,Clean Catch Escherichia coli Assessment and Plan (1) UTI due to extended-spectrum beta lactamase (ESBL) producing Escherichia coli Current Visit: Yes Status: Acute Code(s): N39.0 - URINARY TRACT INFECTION, SITE NOT SPECIFIED; B96.29 - OTH ESCHERICHIA COLI THE CAUSE OF DISEASES CLASSD ELSWHR; Z16.12 - EXTENDED SPECTRUM BETA LACTAMASE (ESBL) RESISTANCE SNOMED Code(s): 650723820 Plan: 1patient with a history of recurrent urinary tract infection recently evaluated in the ER on 07/13/2022 was complaining of mostly abdominal pain at that point the patient did have a positive UA and urine has not been finalized with ESBL E. coli reported the patient was advised to come back to the hospital he did have a positive UA patient did have a CT of abdominal pelvis on 07/13/2022 there is no evidence of any hydronephrosis or renal calculus bladder was incompletely distended possible cystitis not behaving as deep infection such as pyelonephritis in this patient with no fever or elevated white count. 2patient clinically behaving more of a cystitis rather than pyelonephritis , Patient will received a dose of Invanz today and 1 tomorrow morning and that should be enough for her underlying UTI there is no need for midline or ou tpatient antibiotic therapy discussed with the patient as well as the nurse practitioner for admitting team Time with Patient: Less than 30
[2022-07-20 08:06] VITALS: BP 152/75; PULSE 61; RESP 18; TEMP 97.5
[2022-07-20] MEDS: amLODIPine 10 MG TAB PO SCH (09:16)
[2022-07-20] MEDS: ASPIRIN 81 MG PO SCH (09:16)
[2022-07-20] MEDS: METOPROLOL TARTRATE 25 MG TAB PO SCH (09:16)
[2022-07-20] MEDS: ENOXAPARIN 40 MG/0.4 ML SYRINGE SQ SCH (09:16)
[2022-07-20] MEDS: POTASSIUM CHLORIDE ER 20 MEQ TAB.ER PO SCH (09:16)
[2022-07-20] MEDS: hydroCHLOROthiazide 25 MG TAB PO SCH (09:17)
[2022-07-20] MEDS: predniSONE 5 MG TAB PO SCH (09:17)
[2022-07-20] MEDS: cycloSPORINE 0.05% OPHTH 0.4 ML DROPERETTE BOTH EYES SCH (09:17)
[2022-07-20] MEDS ORDERED: ERTAPENEM 1 GM in SODIUM CHLORIDE 0.9% 50 ML IVPB SCH (13:00)
--- NOTE | 2022-07-21 15:37 | P.DS ---
Providers Date of admission: 07/16/22 15:52 Expected date of discharge: 07/19/22 Attending physician: Ariel Green Consults: 07/16/22 15:51 Consult Physician Routine Consulting Provider: Robert Vargas Consult Reason/Comments: esbl Do you want consulting provider notified?: Yes Primary care physician: Kimo De Anda [facility] Course: Final diagnosis Acute urinary tract infection with E. coli, ESBL Asthma without any acute exacerbation Gastroesophageal reflux disease hypertension depression DVT prophylaxis Full code Discharge disposition Patient is being discharged in a stable condition with guarded prognosis to home . Patient will follow-up with Dr. De Anda in the outpatient setting upon discharge. Total time taken is greater than 35 minutes. Hospital course This is a 76-year-old female who was recently admitted with urinary frequency and burning and urgency was initially discharged home on antibiotics in the form of Bactrim although cultures came back showing E. coli with ESBL and was called back by the ER for admission for IV and biotics. Patient was evaluated and followed by infectious disease and started on ertapenem. Patient will require 3-5 days of IV antibiotics per ID recommendations and will not require antibiotics on discharge. Patient will be given Pyridium on discharge for discomfort. Encouraged follow-up with primary care provider this week. Currently no reports of chest pain, shortness of breath, or palpitations. Patient is afebrile. No reports of nausea or vomiting and patient is tolerating diet. Patient will be discharged home today. Guarded prognosis. Physical exam: Gen: This is a 76-year-old female awake, alert and oriented 3, well-developed, well-nourished. HEENT: Head is atraumatic, normocephalic. Pupils equal, round. Sclerae is anicteric. NECK: Supple. No JVD. No lymphadenopathy. No thyromegaly. LUNGS: Clear to auscultation. No wheezes or rhonchi. No intercostal retractions. HEART: Regular rate and rhythm. No murmur. ABDOMEN: Soft. Bowel sounds are present. No masses. No tenderness. EXTREMITIES: No pedal edema. No calf tenderness. NEUROLOGICAL: Patient is awake, alert and oriented x3. Cranial nerves 2 through 12 are grossly intact. Please refer to medication reconciliation sheet for a list of medications. The impression and plan of care has been dictated by Leena Jaffe, Nurse Practitioner as directed. Dr. Jeff MD I have performed a history and examination and MDM of this patient, discussed the same with the dictator, and agree with the dictator's assessment and plan as written ,documented as a scribe. Based on total visit time, I have performed more than 50% of the visit. Patient Condition at Discharge: Fair Plan - Discharge Summary New Discharge Prescriptions: New Acetaminophen Tab [Tylenol] 650 mg PO Q6HR PRN tab PRN Reason: Fever And/ Or Pain amLODIPine [Norvasc] 10 mg PO DAILY 30 Days #30 tab Phenazopyridine [Pyridium] 100 mg PO TID PRN #9 tab PRN Reason: Pain Continue predniSONE 5 mg PO DAILY Potassium Chloride ER [K-Dur 20] 20 meq PO BID Montelukast [Singulair] 10 mg PO HS hydroCHLOROthiazide 25 mg PO Q48H Felodipine [Felodipine ER] 5 mg PO DAILY Aspirin [Adult Low Dose Aspirin EC] 81 mg PO DAILY Esomeprazole Magnesium 40 mg PO DAILY Metoprolol Tartrate [Lopressor] 25 mg PO BID cycloSPORINE 0.05% OPHTH SOLN [Restasis] 1 drop BOTH EYES BID Fluticasone Propionate [Flovent Hfa 220 mcg] 1 puff INHALATION RT-DAILY Rosuvastatin [Crestor] 10 mg PO HS Ondansetron Odt [Zofran ODT] 4 mg PO Q8HR PRN #10 tab PRN Reason: Nausea Tolterodine ER [Detrol LA] 4 mg PO HS Discontinued Sulfamethox-Tmp 800-160Mg [Bactrim Ds] 1 tab PO Q12HR Discharge Medication List Aspirin [Adult Low Dose Aspirin EC] 81 mg PO DAILY 07/15/17 [History] Felodipine [Felodipine ER] 5 mg PO DAILY 07/15/17 [History] Montelukast [Singulair] 10 mg PO HS 07/15/17 [History] Potassium Chloride ER [K-Dur 20] 20 meq PO BID 07/15/17 [History] hydroCHLOROthiazide 25 mg PO Q48H 07/15/17 [History] predniSONE 5 mg PO DAILY 07/15/17 [History] Esomeprazole Magnesium 40 mg PO DAILY 09/03/19 [History] Metoprolol Tartrate [Lopressor] 25 mg PO BID 06/11/20 [History] Fluticasone Propionate [Flovent Hfa 220 mcg] 1 puff INHALATION RT-DAILY 07/29/21 [History] Rosuvastatin [Crestor] 10 mg PO HS 07/29/21 [History] cycloSPORINE 0.05% OPHTH SOLN [Restasis] 1 drop BOTH EYES BID 07/29/21 [History] Ondansetron Odt [Zofran ODT] 4 mg PO Q8HR PRN #10 tab 07/13/22 [Rx] Tolterodine ER [Detrol LA] 4 mg PO HS 07/16/22 [History] Acetaminophen Tab [Tylenol] 650 mg PO Q6HR PRN tab 07/20/22 [Rx] Phenazopyridine [Pyridium] 100 mg PO TID PRN #9 tab 07/20/22 [Rx] amLODIPine [Norvasc] 10 mg PO DAILY 30 Days #30 tab 07/20/22 [Rx] Follow up Appointment(s)/Referral(s): RAMÓN,Nu [NON-STAFF] - 1 Week Kimo De Anda DO [Primary Care Provider] - 1-2 days Patient Instructions/Handouts: Urinary Tract Infection in Women (DC) Activity/Diet/Wound Care/Special Instructions: Activity Limited until follow-up Follow-up with primary care provider on discharge Continue using pyridium over the next few days and note they will change her urine to an orange color which is normal Encourage fluids and rest Discharge Disposition: HOME SELF-CARE
== END 2022-07-20 14:41 | disposition home or self-care (01) | DRG 690 ==
LOC: EC 13:10 → 6NMEDSUR 15:52
PROVIDERS: ADMIT Hospitalist; ATTEND Hospitalist
DX: N39.0 Urinary tract infection, site not specified (principal); Z16.12 Extended spectrum beta lactamase (ESBL) resistance; J45.909 Unspecified asthma, uncomplicated; B96.20 Unspecified Escherichia coli [E. coli] as the cause of diseases classified elsewhere; F32.A Depression, unspecified; F41.9 Anxiety disorder, unspecified; I10 Essential (primary) hypertension; K21.9 Gastro-esophageal reflux disease without esophagitis; H40.9 Unspecified glaucoma; M19.042 Primary osteoarthritis, left hand; M19.041 Primary osteoarthritis, right hand; M19.072 Primary osteoarthritis, left ankle and foot; M19.071 Primary osteoarthritis, right ankle and foot; Z88.5 Allergy status to narcotic agent; Z88.0 Allergy status to penicillin; K44.9 Diaphragmatic hernia without obstruction or gangrene; Z79.51 Long term (current) use of inhaled steroids; Z79.82 Long term (current) use of aspirin; Z79.899 Other long term (current) drug therapy; Z80.6 Family history of leukemia; Z87.440 Personal history of urinary (tract) infections; Z96.653 Presence of artificial knee joint, bilateral
CPT/HCPCS: 36415; 80048; 81001; 85025; 87077; 87086; 87186; 94640; 96365; 99285

== ENCOUNTER → 2022-07-28 | Outpatient (CLI) | payer MEDICARE ==
--- NOTE | 2022-07-28 12:29 | FL ---
EXAMINATION TYPE: FL barium swallow DATE OF EXAM: 07/28/2022 CLINICAL HISTORY: Dysphagia. History of Anne fundoplication surgery June 13, 2020 TECHNIQUE: Limited esophagram is performed utilizing barium. A total of 35 seconds of fluoroscopic t queta was utilized during procedure and 50 images obtained. Comparison: Prior esophagram June 14, 2020 and March 05, 2021. CT abdomen and pelvis July 13, 2022 FINDINGS: The patient swallowed contrast without difficulty or delay. There is good flow of contrast along the esophagus until the distal aspect where there is dilatation along with internal debris. Th ere is persistent good flow of contrast along the diaphragmatic hiatus through small caliber channel into the stomach, there is no evidence of contrast extravasation to suggest leak. Not all contrast fl ows into stomach below the diaphragm, there is an abnormal secondary tertiary contractions with corks crew type appearance and reflux of contrast back into the mid esophagus. Delayed overhead image shows contrast extension into the duodenal sweep but persistent retained contrast in the dilated distal es ophagus. IMPRESSION: Fairly moderate obstructive changes at level of diaphragmatic hiatus with distal esophage al dilatation just above the diaphragm and retained debris. Some esophageal dysmotility and reflux no colby at this level.
== END | disposition home or self-care (01) ==
LOC: RADUSWWP 10:57
PROVIDERS: ATTEND Surgery Plastic and Reconstructive Surgery
DX: K21.9 Gastro-esophageal reflux disease without esophagitis (principal); K22.4 Dyskinesia of esophagus
CPT/HCPCS: 74220

== ENCOUNTER 2022-08-23 08:17 | Day surgery (SDC) | payer MEDICARE ==
[2022-08-19 11:24] VITALS: BMI 26.5
[2022-08-23 08:44] VITALS: TEMP 97.9
[2022-08-23 08:53] LABS: Glucose,Whole Blood 82 mg/dL (70-110)
[2022-08-23] MEDS ORDERED: PROPOFOL 10 MG/ML 20 ML VIAL IV ONE (09:09)
[2022-08-23 09:51] VITALS: BP 151/73; PULSE 77; RESP 14
--- NOTE | 2022-08-23 15:13 | P.GSHP ---
History of Present Illness H&P Date: 08/23/22 CHIEF COMPLAINT: GERD HISTORY OF PRESENT ILLNESS: The patient is a 76-year-old female who presents reports gastroesophageal reflux disease. Upper endoscopy was offered for further evaluation and management. PAST MEDICAL HISTORY: Please see list. PAST SURGICAL HISTORY: Please see list. MEDICATIONS: Please see list. ALLERGIES: Please see list. SOCIAL HISTORY: No illicit drug use FAMILY HISTORY: No reports of Crohn disease or ulcerative colitis. REVIEW OF ORGAN SYSTEMS: CONSTITUTIONAL: No reports of fevers or chills. GI: Denies any blood in stools or constipation. PHYSICAL EXAM: VITAL SIGNS: Stable GENERAL: Well-developed and pleasant in no acute distress. HEENT: No scleral icterus. Extraocular movements grossly intact. Moist buccal mucosa. NECK: Supple without lymphadenopathy. CHEST: Unlabored respirations. Equal bilateral excursions. CARDIOVASCULAR: Regular rate and rhythm. Distal 2+ pulses. ABDOMEN: Soft, nondistended. MUSCULOSKELETAL: No clubbing, cyanosis, or edema. ASSESSMENT: 1. Gastroesophageal reflux disease PLAN: 1. Recommend proceeding with an upper endoscopy Past Medical History Past Medical History: Asthma, Eye Disorder, GERD/Reflux, Hyperlipidemia, Hypertension, Osteoarthritis (OA) Additional Past Medical History / Comment(s): glaucoma, hx migraines, hiatal hernia, arthritis in hands and feet, "leaky bladder" FREQ UTI'S History of Any Multi-Drug Resistant Organisms: ESBL Date of last positivie culture/infection: 07/16/22 ESBL-E.coli MDRO Source:: URINE Past Surgical History: Bowel Resection, Breast Surgery, Joint Replacement, Orthopedic Surgery Additional Past Surgical History / Comment(s): monae knee replacement, rt knee arthroscopy, breast biopsy, monae cataracts, COLONOSCOPY Past Anesthesia/Blood Transfusion Reactions: Motion Sickness Smoking Status: Never smoker - Past Family History Brother(s) Family Medical History: Cancer Additional Family Medical History / Comment(s): leukemia Medications and Allergies Home Medications Medication Instructions Recorded Confirmed Type Aspirin [Adult Low Dose Aspirin EC] 81 mg PO DAILY 07/15/17 08/19/22 History Montelukast [Singulair] 10 mg PO HS 07/15/17 08/19/22 History Potassium Chloride ER [K-Dur 20] 20 meq PO BID 07/15/17 08/19/22 History hydroCHLOROthiazide 25 mg PO Q48H 07/15/17 08/19/22 History predniSONE 5 mg PO DAILY 07/15/17 08/19/22 History Esomeprazole Magnesium 40 mg PO DAILY 09/03/19 08/19/22 History Metoprolol Tartrate [Lopressor] 25 mg PO BID 06/11/20 08/19/22 History Fluticasone Propionate [Flovent 1 puff INHALATION RT-DAILY 07/29/21 08/19/22 History Hfa 220 mcg] Rosuvastatin [Crestor] 10 mg PO HS 07/29/21 08/19/22 History cycloSPORINE 0.05% OPHTH SOLN 1 drop BOTH EYES BID 07/29/21 08/19/22 History [Restasis] Acetaminophen Tab [Tylenol] 650 mg PO Q6HR PRN tab 07/20/22 08/19/22 Rx amLODIPine [Norvasc] 10 mg PO DAILY 30 Days #30 tab 07/20/22 08/19/22 Rx Allergies Allergy/AdvReac Type Severity Reaction Status Date / Time Penicillins Allergy Rash/Hives Verified 08/23/22 08:29 codeine AdvReac Nausea & Verified 08/23/22 08:29 Vomiting meperidine [From Demerol] AdvReac Nausea & Verified 08/23/22 08:29 Vomiting Surgical - Exam Vital Signs Temp Pulse Resp BP Pulse Ox 97.9 F 67 16 163/74 93 L 08/23/22 08:35 08/23/22 08:35 08/23/22 08:35 08/23/22 08:35 08/23/22 08:35
--- NOTE | 2022-08-26 09:11 | P.PCN ---
Date of Procedure: 08/23/22 Description of Procedure: PREOPERATIVE DIAGNOSIS: Dysphagia. Gastroesophageal reflux disease POSTOPERATIVE DIAGNOSIS: Dysphagia. Gastroesophageal reflux disease Recurrent diaphragmatic hiatal hernia OPERATION: Esophagogastroduodenoscopy SURGEON: Kacy Acuña MD ANESTHESIA: MAC. INDICATIONS: The patient is a 76-year-old female who presents with a history of dysphagia. Benefits and risks of the procedure were described. Informed consent was obtained. DESCRIPTION: The patient was brought into the endoscopy suite and laid in the left lateral decubitus position. An Olympus gastroscope was passed along the posterior oropharynx down to the distal esophagus where the squamocolumnar junction was encountered at 33 cm from the incisors. The stomach was entered and no bile reflux was found. Additional findings are listed below. Biopsies with cold forceps were obtained of the antrum. The first through third portion of the duodenum was examined. Retroflexion of the scope confirmed Hill grade 3 lower esophageal valve. The squamocolumnar junction demonstrated LA grade B erosive esophagitis. The stomach was desufflated. The patient tolerated the procedure well. FINDINGS: Squamocolumnar junction 33 cm from the incisors. Diaphragmatic hiatus at 35 cm. Hiatal hernia, 2 cm Hill grade 3 lower esophageal valve. LA grade B erosive esophagitis. No active duodenitis. No chronic gastritis RECOMMENDATIONS: May benefit from repair of recurrent hiatal hernia Plan - Discharge Summary Discharge Rx Participant: No New Discharge Prescriptions: Continue predniSONE 5 mg PO DAILY Potassium Chloride ER [K-Dur 20] 20 meq PO BID Montelukast [Singulair] 10 mg PO HS hydroCHLOROthiazide 25 mg PO Q48H Aspirin [Adult Low Dose Aspirin EC] 81 mg PO DAILY Esomeprazole Magnesium 40 mg PO DAILY Metoprolol Tartrate [Lopressor] 25 mg PO BID cycloSPORINE 0.05% OPHTH SOLN [Restasis] 1 drop BOTH EYES BID Fluticasone Propionate [Flovent Hfa 220 mcg] 1 puff INHALATION RT-DAILY Rosuvastatin [Crestor] 10 mg PO HS Acetaminophen Tab [Tylenol] 650 mg PO Q6HR PRN tab PRN Reason: Fever And/ Or Pain amLODIPine [Norvasc] 10 mg PO DAILY 30 Days #30 tab Discharge Medication List Aspirin [Adult Low Dose Aspirin EC] 81 mg PO DAILY 07/15/17 [History] Montelukast [Singulair] 10 mg PO HS 07/15/17 [History] Potassium Chloride ER [K-Dur 20] 20 meq PO BID 07/15/17 [History] hydroCHLOROthiazide 25 mg PO Q48H 07/15/17 [History] predniSONE 5 mg PO DAILY 07/15/17 [History] Esomeprazole Magnesium 40 mg PO DAILY 09/03/19 [History] Metoprolol Tartrate [Lopressor] 25 mg PO BID 06/11/20 [History] Fluticasone Propionate [Flovent Hfa 220 mcg] 1 puff INHALATION RT-DAILY 07/29/21 [History] Rosuvastatin [Crestor] 10 mg PO HS 07/29/21 [History] cycloSPORINE 0.05% OPHTH SOLN [Restasis] 1 drop BOTH EYES BID 07/29/21 [History] Acetaminophen Tab [Tylenol] 650 mg PO Q6HR PRN tab 07/20/22 [Rx] amLODIPine [Norvasc] 10 mg PO DAILY 30 Days #30 tab 07/20/22 [Rx] Follow up Appointment(s)/Referral(s): Kacy Acuña MD [STAFF PHYSICIAN] - 09/07/22 1:15 pm Patient Instructions/Handouts: *Surgery [facility] - (Anesthesia) Endoscopy Discharge Instructions, Hiatal Hernia (DC), GERD (Gastroesophageal Reflux Disease) (DC) Discharge Disposition: HOME SELF-CARE
== END 2022-08-23 10:37 | disposition home or self-care (01) ==
LOC: ORWHC2ENDO 08:17
PROVIDERS: ATTEND Surgery Plastic and Reconstructive Surgery
DX: R13.10 Dysphagia, unspecified (principal); K44.9 Diaphragmatic hernia without obstruction or gangrene; E78.5 Hyperlipidemia, unspecified; I10 Essential (primary) hypertension; J45.909 Unspecified asthma, uncomplicated; Z79.51 Long term (current) use of inhaled steroids; Z79.52 Long term (current) use of systemic steroids; Z79.621 Long term (current) use of calcineurin inhibitor; Z79.82 Long term (current) use of aspirin; Z79.899 Other long term (current) drug therapy; Z87.440 Personal history of urinary (tract) infections; Z88.0 Allergy status to penicillin; Z88.5 Allergy status to narcotic agent; Z96.653 Presence of artificial knee joint, bilateral
CPT/HCPCS: 43239; J2704; 43235; 43249

== ENCOUNTER 2022-10-18 09:39 | Day surgery (SDC) | payer MEDICARE ==
--- NOTE | 2022-10-18 07:55 | P.GSHP ---
History of Present Illness H&P Date: 10/18/22 CHIEF COMPLAINT: Paraesophageal hiatal hernia with gastroesophageal reflux disease. HISTORY OF PRESENT ILLNESS: The patient is a 77-year-old female who presents with recurrent paraesophageal hiatal hernia with recurrent reflux, dysphagia, atypical chest for over 3 months. She has completed CT chest, barium swallow including upper endoscopy workup. Now she presents for surgical intervention. PAST MEDICAL HISTORY: Please see list. PAST SURGICAL HISTORY: Please see list. MEDICATIONS: Please see list. ALLERGIES: Please see list. SOCIAL HISTORY: No illicit drug use FAMILY HISTORY: No reports of Crohn disease or ulcerative colitis. REVIEW OF ORGAN SYSTEMS: CONSTITUTIONAL: No reports of fevers or chills. GI: Denies any blood in stools or constipation. PHYSICAL EXAM: VITAL SIGNS: Stable GENERAL: Well-developed pleasant and in no acute distress. HEENT: No scleral icterus. Extraocular movements grossly intact. Moist buccal mucosa. NECK: Supple without lymphadenopathy. CHEST: Unlabored respirations. Equal bilateral excursions. CARDIOVASCULAR: Regular rate and rhythm. Distal 2+ pulses. ABDOMEN: Soft, nondistended. No peritoneal signs. MUSCULOSKELETAL: No clubbing, cyanosis, or edema. SKIN: Well-perfused. Good skin turgor. STUDIES: CT chest demonstrates recurrent diaphragmatic hiatal hernia. ASSESSMENT: 1. Diaphragmatic paraesophageal hiatal hernia with severe gastroesophageal reflux disease. PLAN: 1. Recommend proceeding with a robotic paraesophageal hiatal hernia with possible mesh. 2. Benefits and risks of surgical intervention was discussed including possibility of open technique. 3. Inpatient hospitalization recommended of 2 nights 4. DVT prophylaxis. 5. Antibiotic prophylaxis. 6. She has also completed a very low caloric high-protein diet to address underlying hepatomegaly. 7. Non narcotic pain management including abdominal wall block described 8. Blood sugar glucose described. 9. Weight loss management described. 10. She is elevated risk due to prior hiatal hernia repair and comorbidities Past Medical History Past Medical History: Asthma, Eye Disorder, GERD/Reflux, Hyperlipidemia, Hypertension, Osteoarthritis (OA) Additional Past Medical History / Comment(s): glaucoma, hx migraines, hiatal hernia, arthritis in hands and feet, "leaky bladder" FREQ UTI'S History of Any Multi-Drug Resistant Organisms: ESBL Date of last positivie culture/infection: 07/16/22 ESBL-E.coli MDRO Source:: URINE Past Surgical History: Bowel Resection, Breast Surgery, Joint Replacement, Orthopedic Surgery Additional Past Surgical History / Comment(s): monae knee replacement, rt knee arthroscopy, breast biopsy, monae cataracts, COLONOSCOPY, EGD Past Anesthesia/Blood Transfusion Reactions: Motion Sickness Additional Past Anesthesia/Blood Transfusion Reaction / Comment(s): no blood transfusion Smoking Status: Never smoker - Past Family History Brother(s) Family Medical History: Cancer Additional Family Medical History / Comment(s): leukemia Mother Family Medical History: No Reported History Medications and Allergies Home Medications Medication Instructions Recorded Confirmed Type Montelukast [Singulair] 10 mg PO HS 07/15/17 10/13/22 History Potassium Chloride ER [K-Dur 20] 20 meq PO BID 07/15/17 10/13/22 History hydroCHLOROthiazide 25 mg PO Q48H 07/15/17 10/13/22 History predniSONE 5 mg PO DAILY 07/15/17 10/13/22 History Esomeprazole Magnesium 40 mg PO DAILY 09/03/19 10/13/22 History Metoprolol Tartrate [Lopressor] 25 mg PO BID 06/11/20 10/13/22 History Fluticasone Propionate [Flovent 1 puff INHALATION RT-DAILY 07/29/21 10/13/22 History Hfa 220 mcg] Rosuvastatin [Crestor] 10 mg PO HS 07/29/21 10/13/22 History cycloSPORINE 0.05% OPHTH SOLN 1 drop BOTH EYES BID 07/29/21 10/13/22 History [Restasis] Acetaminophen Tab [Tylenol] 650 mg PO Q6HR PRN tab 07/20/22 10/13/22 Rx Felodipine ER [Plendil] 5 mg PO DAILY 10/13/22 10/13/22 History Unk Fiber Gummies 1 tab PO DAILY PRN 10/13/22 10/13/22 History Allergies Allergy/AdvReac Type Severity Reaction Status Date / Time Penicillins Allergy Rash/Hives Verified 10/13/22 12:39 codeine AdvReac Nausea & Verified 10/13/22 12:39 Vomiting meperidine [From Demerol] AdvReac Nausea & Verified 10/13/22 12:39 Vomiting
[~2022-10-18 09:39] MED LIST changes: +CHLORHEXIDINE GLUCONATE 15 ML CUP MUCOUS MEM PRN; +DEXAMETHASONE SOD PHOSPHATE 4 MG/ML 1 ML VIAL IV ONE; +HEPARIN SODIUM,PORCINE/PF 5,000 UNIT/0.5 ML SYRINGE SQ PRN; +HYDROmorphone 0.5 MG/0.5 ML SYRINGE IVP PRN; -LACTATED RINGERS 1,000 ML IV SCH; +MIDAZOLAM 2 MG/2 ML VIAL IV PRN; +ONDANSETRON 4 MG/2 ML VIAL IVP ONE; +PANTOPRAZOLE 40 MG/10 ML VIAL IVP PRN; +metroNIDAZOLE-NS PMX 500 MG in SALINE 1 100ML.BAG IVPB PRN
[2022-10-18] MEDS ORDERED: LACTATED RINGERS 1,000 ML IV ONE ×3 (10:08→15:06)
[2022-10-18 10:53] LABS: Basophils # (A) 0.1 k/uL (0-0.2); Basophils % (A) 1 %; Eosinophils # (A) 0.6 k/uL (0-0.7); Eosinophils % (A) 7 %; HCT 39.9 % (34.0-46.0); HGB 13.6 gm/dL (11.4-16.0); Lymphocytes # (A) 1.3 k/uL (1.0-4.8); Lymphocytes % (A) 14 %; MCH 30.6 pg (25.0-35.0); MCV 90.1 fL (80.0-100.0); Mean Platelet Volume 9.1; Monocytes # (A) 0.3 k/uL (0-1.0); Monocytes % (A) 3 %; Neutrophils # (A) 6.8 k/uL (1.3-7.7); Neutrophils % (A) 74 %; Platelet Count 236 k/uL (150-450); RBC 4.43 m/uL (3.80-5.40); RDW 13.7 % (11.5-15.5); WBC 9.1 k/uL (3.8-10.6)
[2022-10-18 10:56] LABS: Glucose,Whole Blood 86 mg/dL (70-110)
[2022-10-18 11:04] LABS: ALT 22 U/L (4-34); AST 27 U/L (14-36); African American GFR (CKD) >90 (>60 ml/min/1.73 sqM); Albumin 4.3 g/dL (3.5-5.0); Alkaline Phosphatase 46 U/L (38-126); Anion Gap 7 mmol/L; Blood Urea Nitrogen 28 mg/dL (7-17); Calcium 9.1 mg/dL (8.4-10.2); Carbon Dioxide 26 mmol/L (22-30); Chloride 105 mmol/L (98-107); Glucose 93 mg/dL (74-99); Non-African American GFR(CKD) 90 (>60 ml/min/1.73 sqM); Potassium 3.8 mmol/L (3.5-5.1); Sodium 138 mmol/L (137-145); Total Bilirubin 1.5 mg/dL (0.2-1.3); Total Protein 7.2 g/dL (6.3-8.2)
[2022-10-18] MEDS ORDERED: PHENYLEPHRINE-0.9% NACL SYG 1,000 MCG/10 ML SYRINGE ONE (11:44)
[2022-10-18] MEDS ORDERED: PROPOFOL 10 MG/ML 20 ML VIAL IV ONE (11:44)
[2022-10-18] MEDS ORDERED: GLYCOPYRROLATE 0.2 MG/ML 2 ML VIAL ONE (11:44)
[2022-10-18] MEDS ORDERED: SUCCINYLCHOLINE CHLORIDE 200 MG/10 ML VIAL IV ONE (11:44)
[2022-10-18] MEDS ORDERED: MIDAZOLAM 2 MG/2 ML VIAL ONE (11:44)
[2022-10-18] MEDS ORDERED: LIDOCAINE 2% INJ 20 MG/ML (2 ML VIAL) ONE (11:44)
[2022-10-18] MEDS ORDERED: LABETALOL 5 MG/ML VIAL MDV ONE (11:44)
[2022-10-18] MEDS ORDERED: fentaNYL (PF) 50 MCG/ML 2 ML AMP ONE (11:44)
[2022-10-18] MEDS ORDERED: ROCURONIUM 10 MG/ML (5 ML VIAL) IV ONE (11:44)
[2022-10-18] MEDS ORDERED: NEOSTIGMINE 1 MG/ML 10 ML VIAL ONE (11:44)
[2022-10-18] MEDS ORDERED: BUPIVACAIN-EPI 0.25%-1:200,000 30 ML VIAL SQ ONE (12:23)
[2022-10-18] MEDS ORDERED: NALOXONE 0.4 MG/ML 1 ML VIAL IV PRN (14:29)
[2022-10-18] MEDS ORDERED: diphenhydrAMINE 50 MG/ML 1 ML VIAL IVP PRN (14:29)
[2022-10-18] MEDS ORDERED: ACETAMINOPHEN IV (For NPO) 1,000 MG in EMPTY BAG 1 BAG IVPB ONE (14:30)
[2022-10-18 15:20] LABS: Glucose,Whole Blood 180 mg/dL (70-110)
[2022-10-18] MEDS ORDERED: DEXAMETHASONE SOD PHOSPHATE 4 MG/ML 1 ML VIAL IVP SCH (16:00)
[2022-10-18] MEDS ORDERED: ACETAMINOPHEN IV (For NPO) 1,000 MG/100 ML VIAL IVPB ONE (16:25)
[2022-10-18] MEDS: LACTATED RINGERS 1,000 ML IV SCH (17:40)
[2022-10-18] MEDS: 0.9% NACL WITH KCL 20 MEQ/L 1,000 ML IV SCH (17:54)
[2022-10-18] MEDS: ACETAMINOPHEN IV (For NPO) 650 MG in EMPTY BAG 1 BAG IVPB SCH ×2 (17:57→23:58)
[2022-10-18] MEDS: SIMETHICONE 40 MG/0.6 ML DROPS 2,000 MG/30 ML BOTTLE PO SCH (18:00)
[2022-10-18] MEDS: KETOROLAC 15 MG/ML 1 ML VIAL IVP SCH ×2 (18:33→23:58)
[2022-10-18] MEDS: METOPROLOL TARTRATE 25 MG TAB PO SCH (20:29)
[2022-10-18] MEDS: POTASSIUM CHLORIDE ER 20 MEQ TAB.ER PO SCH (20:29)
[2022-10-18] MEDS: cycloSPORINE 0.05% OPHTH 0.4 ML DROPERETTE BOTH EYES SCH (20:29)
[2022-10-18] MEDS ORDERED: MONTELUKAST 10 MG TAB PO SCH (21:00)
[2022-10-18] MEDS ORDERED: ATORVASTATIN 20 MG TAB PO SCH (21:00)
[2022-10-18] MEDS: DEXAMETHASONE SOD PHOSPHATE 4 MG/ML 1 ML VIAL IVP SCH (23:58)
--- NOTE | 2022-10-19 00:13 | P.OP ---
Date of Procedure: 10/18/22 Description of Procedure: SURGEON: SHANON MONTES DE OCA MD PREOPERATIVE DIAGNOSES: 1. 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 Hypertensive heart disease 3. Chronic obstructive pulmonary disease 4. Steroid-dependent 5. Migraines 6. Anxiety 7. Depressive disorder 8. Hyperlipidemia 9. Gastroesophageal reflux disease 10. Dysphagia POSTOPERATIVE DIAGNOSES: 1. Recurrent incarcerated paraesophageal diaphragmatic hiatal hernia, 4 x 3 cm 2. Hypertensive heart disease 3. Chronic obstructive pulmonary disease 4. Steroid-dependent 5. Migraines 6. Anxiety 7. Depressive disorder 8. Hyperlipidemia 9. Gastroesophageal reflux disease 10. Dysphagia 11. Severe peritoneal adhesions, midline, pelvis, epigastrium OPERATION: 1. Robotic-assisted da Jessie Xi laparoscopic repair of incarcerated paraesophageal hiatal hernia, 4 x 3 cm, with Stovall Biopatch A 8 x 8 cm. 2. Robotic-assisted da Jessie Xi laparoscopic lysis of adhesions, extensive, over 40% of case 3. Intraoperative esophagogastroduodenoscopy ANESTHESIA: General with local anesthetic. ESTIMATED BLOOD LOSS: 5 mL SPECIMENS REMOVED: None COMPLICATIONS: None. Condition: stable Disposition: floor FINDINGS: 1. Recurrent diaphragmatic hiatal hernia 4 x 3 cm 2. Recurrence along the anterior hiatal hernia repair with incarcerated stomach 3. Right vagus nerve identified with division at the time of dissection 4. Moderate subcutaneous emphysema treated with hyperventilation 5. Extreme severe adhesions over 40% of the case with lysis of adhesions lower midline, upper midline, bilateral upper abdomen using vessel sealer 6. Intraoperative upper endoscopy confirms complete closure of hiatal hernia from Hill grade 4 to Hill grade 1 7. Intraesophageal length over 3+ centimeters INDICATIONS: The patient is a 77-year-old female who presents with dysphagia, epigastric abdominal pain, gastroesophageal reflux disease poorly controlled despite medications, and a symptomatic diaphragmatic hiatal hernia. Preoperative workup including upper endoscopy demonstrated a sliding hiatal hernia. She completed barium swallow. Given the severity of symptoms, she had elected for surgical intervention. Benefits and risks including bleeding, infection, recurrence, dysphagia, injury to the lung, need for further surgery was described at length. Informed consent was obtained. DESCRIPTION: The patient was brought into the operating room and placed in supine position. Preoperatively she had received heparin subcutaneously for DVT prophylaxis. After general induction, the abdomen was prepped and draped in standard sterile fashion. The patient had previously voided prior to coming to the operating room. Gabino kingaping was placed along the abdomen. A timeout protocol was confirmed with the surgical team, for which the patient's name, procedure to be performed including DVT prophylaxis with bilateral SCDs, and preoperative antibiotics were also confirmed. A robotic da Jessie Xi system was prepped and primed. At 12 cm from the xiphoid to just below the umbilicus, proposed port sites were marked with indelible marker along the left axillary line, left mid-clavicular line with each ports were marked 10 cm from each other. A 5 mm 0 degrees laparoscopic trocar entry was performed along the left upper quadrant. The abdomen was insufflated to 15 mmHg pressure was tolerated well. Diagnostic laparoscopy demonstrated no injury to bowel, viscera, or mesentery. No injury had occurred to the small bowel or viscera. The liver was smooth with sharp edges consistent with two-week high-protein low-carb diet. Severe epigastric adhesions were identified prohibiting proceeding to her hiatal hernia repair requiring double docking with lysis of adhesions first. Next, two 8-mm left lateral trochars were placed. The 5-mm trocar was exchanged for 8-mm trochar. Next the robot was docked along the left abdomen. Moderate adhesions were found involving the midline, upper abdomen and pelvis of omentum to the abdominal wall. Using blunt dissection including vesseal sealer, extensive lysis of adhesions over 40 to 50 % of the case was performed. Small incarcerated incisional hernias x 3 were identified as the fascia was exposed. Attention was brought to re-docking for the hiatal hernia portion of the case. Another 12 mm port was placed along the left upper abdominal wall after exchanging the 8 mm port. Please note that the ports were placed at least 20 cm away from the target anatomy. Care was taken to check that each robotic arm were safely away from collision with the bed or the patient. Additional 8-mm trocars were placed at the right upper quadrant and left upper abdomen. At the epigastrium, a medium sized Fahad liver retractor was placed under direct visualization with the Iron Spare Person placed under the right shoulder of the patient. All robotic arms were used. The patient was repositioned in reverse Trendelenburg position at 21-degrees after lowering the bed. The robot was docked above the right side of the patient. Using a grasper for arm 3, a grasper for arm 1, including vessel sealer for arm 2, the robotic system was docked and primed as described. Instruments were interchanged by the resident assistant cna. I had sat at the console. Adhesions along the left upper quadrant was addressed with vessel sealer. The gastrohepatic ligament was cleaved using a vessel sealer. Next, the phrenoesophageal ligament was mobilized and the distal esophagus was mobilized circumferentially. The left and right crura was identified. Posterior hiatal hernia repair was confirmed with all sutures intact. Recurrent hiatal hernia was identified along the anterior hiatus. Circumferentially, the hernia sac was excised and brought into the peritoneal cavity. Moderate dissection into the mediastinum was performed to release the esophagus into the abdominal cavity. The paraesophageal hiatal hernia sac was also incised and divided from the esophagus. The measured defect was consistent with 4 cm axial length and 3 cm in width. After dissection, the distal esophagus of 3+ cm was brought into the abdominal cavity. Once the hiatus and crura was dissected, nonabsorbable 2-0 VLOC suture was placed to reapproximate the diaphragmatic hiatus posteriorly. To buttress the repair, a Stovall Biopatch A was prepared along the back table and cut in half of a bautista-hole fashion as to reinforce the repair as an underlay. The mesh was placed along the crural repair and tagged using horizontal mattress sutures using 2-0 VLOC. I went to the head of the bed to perform intraoperative esophagogastroduodenoscopy. An Olympus gastroscope was passed through posterior oropharynx. The pylorus was patent. Retroflexion of the scope confirmed a Hill grade 1 lower esophageal valve. The stomach had been desufflated. No evidence of leaks were found of the esophagus or stomach. The GI tract with desufflated This concluded the endoscopic portion of the case. The robot was undocked from the patient. I re-scrubbed into the case. All instruments and pneumoperitoneum and specimens were evacuated from the abdominal cavity. Incisions were reapproximated using 4-0 Monocryl in an interrupted subcuticular fashion. Liquid glue was applied to the skin. Local anesthetic was infiltrated in all wounds for postop analgesia. Multiple intra-abdominal films were obtained. At the end of the procedure, needle, sponge, and instrument count was verified correct by the medical equipment repair technician. The patient had tolerated the procedure well and was taken to the postanesthesia unit in stable condition. Moderate subcutaneous emphysema was addressed with hyperventilation which she tolerated.
--- NOTE | 2022-10-19 00:17 | P.PN ---
Subjective Progress Note Date: 10/18/22 CHIEF COMPLAINT: Paraesophageal hiatal hernia with gastroesophageal reflux disease. HISTORY OF PRESENT ILLNESS: The patient is a 77-year-old female status post repair of recurrent hiatal hernia. She reports resolved dysphagia and epigatric chest pain. She tolerated popsicles and soup. Emphysema of the skin had resolved. Her pain is well-controlled. No nausea or vomiting. PHYSICAL EXAM: VITAL SIGNS: Stable GENERAL: Well-developed pleasant and in no acute distress. HEENT: No scleral icterus. Extraocular movements grossly intact. Moist buccal mucosa. NECK: Supple without lymphadenopathy. CHEST: Unlabored respirations. Equal bilateral excursions. CARDIOVASCULAR: Regular rate and rhythm. Distal 2+ pulses. ABDOMEN: Incisions are intact MUSCULOSKELETAL: No clubbing, cyanosis, or edema. SKIN: Well-perfused. Good skin turgor. ASSESSMENT: 1. Diaphragmatic paraesophageal hiatal hernia with severe gastroesophageal reflux disease. PLAN: 1. Recommend esophagram. 2. Anne liquid diet 3. Disposition in 24 hrs 4. Risk of recurrence descried due to chronic prednisone use and compromised wound healing. 5. Hospitalist consultation for medical management. Objective - Vital Signs Vital signs: Vital Signs Temp 97.4 F L 10/18/22 19:12 Pulse 86 10/18/22 19:12 Resp 14 10/18/22 19:12 BP 148/76 10/18/22 19:12 Pulse Ox 96 10/18/22 19:12 FiO2 100 10/18/22 14:46 Intake & Output 10/18/22 10/18/22 10/19/22 06:59 18:59 06:59 Intake Total 2350 Output Total 155 Balance 2195 Weight 65.1 kg Intake: IV 2350 Output: Urine 150 Estimated Blood Loss 5 Other: Voiding Method Bedside Commode Incontinent # Voids 2 1 - Labs CBC & Chem 7: 10/18/22 10:39 10/18/22 10:39 Labs: Abnormal Lab Results - Last 24 Hours (Table) 10/18/22 10/18/22 Range/Units 10:39 15:18 BUN 28 H (7-17) mg/dL POC Glucose (mg/dL) 180 H (70-110) mg/dL Total Bilirubin 1.5 H (0.2-1.3) mg/dL
[2022-10-19] MEDS: SIMETHICONE 40 MG/0.6 ML DROPS 2,000 MG/30 ML BOTTLE PO SCH ×3 (00:27→13:48)
[2022-10-19] MEDS: 0.9% NACL WITH KCL 20 MEQ/L 1,000 ML IV SCH (03:38)
[2022-10-19] MEDS: LACTATED RINGERS 1,000 ML IV SCH (03:41)
[2022-10-19] MEDS: ACETAMINOPHEN IV (For NPO) 650 MG in EMPTY BAG 1 BAG IVPB SCH ×2 (05:47→13:50)
[2022-10-19] MEDS: DEXAMETHASONE SOD PHOSPHATE 4 MG/ML 1 ML VIAL IVP SCH ×2 (05:48→13:49)
[2022-10-19] MEDS: KETOROLAC 15 MG/ML 1 ML VIAL IVP SCH ×2 (05:48→13:49)
[2022-10-19 07:56] VITALS: PULSE 72
[2022-10-19] MEDS ORDERED: 0.9% NACL WITH KCL 20 MEQ/L 1,000 ML IV SCH (08:00)
[2022-10-19] MEDS ORDERED: FLUTICASONE 220 MCG INHALER INHALATION SCH (08:00)
[2022-10-19] MEDS ORDERED: PANTOPRAZOLE 40 MG/10 ML VIAL IV SCH (09:00)
[2022-10-19] MEDS ORDERED: amLODIPine 5 MG TAB PO SCH (09:00)
[2022-10-19] MEDS ORDERED: predniSONE 5 MG TAB PO SCH (09:00)
[2022-10-19] MEDS ORDERED: hydroCHLOROthiazide 25 MG TAB PO SCH (09:00)
[2022-10-19 09:16] LABS: Basophils # (A) 0.01 X 10*3/uL (0.00-0.10); Basophils % (A) 0.1 %; Eosinophils # (A) 0 X 10*3/uL (0.04-0.35); Eosinophils % (A) 0 %; HCT 37.2 % (37.2-46.3); HGB 12.1 g/dL (12.0-15.0); Immature Grans, Automated 0.3 %; Lymphocytes # (A) 0.67 X 10*3/uL (0.90-5.00); Lymphocytes % (A) 8.6 %; MCH 29.7 pg (27.0-32.0); MCHC 32.5 g/dL (32.0-37.0); MCV 91.4 fL (80.0-97.0); Mean Platelet Volume 12.1 fL (9.5-12.2); Monocytes # (A) 0.23 X 10*3/uL (0.20-1.00); Monocytes % (A) 2.9 %; NRBC Per 100 WBC 0 /100 WBCS (0.0-0.0); Neutrophils # (A) 6.87 X 10*3/uL (1.80-7.70); Neutrophils % (A) 88.1 %; Platelet Count 223 X 10*3/uL (140-440); RBC 4.07 X 10*6/uL (4.10-5.20); RDW 13.3 % (11.5-14.5)
[2022-10-19] MEDS: POTASSIUM CHLORIDE ER 20 MEQ TAB.ER PO SCH (09:26)
[2022-10-19] MEDS: cycloSPORINE 0.05% OPHTH 0.4 ML DROPERETTE BOTH EYES SCH (09:27)
[2022-10-19] MEDS: METOPROLOL TARTRATE 25 MG TAB PO SCH (09:27)
[2022-10-19 09:44] LABS: Magnesium 1.7 mg/dL (1.5-2.4)
[2022-10-19 09:45] LABS: African American GFR (CKD) 100.5 (60.0-200.0); Anion Gap 7.7 mmol/L (10.00-18.00); Blood Urea Nitrogen 11.7 mg/dL (9.0-27.0); Calcium 8.9 mg/dL (8.7-10.3); Carbon Dioxide 27.3 mmol/L (20.0-27.5); Non-African American GFR(CKD) 86.7 (60.0-200.0); Phosphorus 2.2 mg/dL (2.4-5.1); Potassium 3.7 mmol/L (3.5-5.5)
--- NOTE | 2022-10-19 12:18 | FL ---
EXAMINATION TYPE: FL esophagus cervic/pharynx DATE OF EXAM: 10/19/2022 HISTORY: Rule out leak/obstruction status post hernia repair one day ago. COMPARISON: Barium swallow 07/28/2022 TECHNIQUE: A double contrast esophagram is performed utilizing air and 50 mL of Isovue-370. A total of 5 seconds of fluoroscopic time was utilized during procedure and 106 images obtained. FINDINGS: Mild esophageal dysmotility. Status post surgical changes at the GE junction from hernia repair. No e vidence for leak or obstruction. IMPRESSION: No evidence for leak or obstruction.
[2022-10-19 12:39] VITALS: BP 139/92; RESP 17; TEMP 97.7
[2022-10-19 13:44] VITALS: BMI 25.4
--- NOTE | 2022-10-19 14:58 | P.CONS ---
History of Present Illness - Reason for Consult COPD, hypertension - History of Present Illness Patient is admitted for hiatal hernia repair patient the pain is well-controlled able to tolerate diet. Patient does have history of hypertension and patient is passing gas wanted to go home. Patient the patient is well controlled at this time on her home regimen. Patient does take prednisone chronically 5 mg for COPD. REVIEW OF SYSTEMS: CONSTITUTIONAL: No fever, no malaise, no fatigue. HEENT: No recent visual problems or hearing problems. Denied any sore throat. CARDIOVASCULAR: No chest pain, orthopnea, PND, no palpitations, no syncope. PULMONARY: No shortness of breath, no cough, no hemoptysis. GASTROINTESTINAL: No diarrhea, no nausea, no vomiting, no abdominal pain. NEUROLOGICAL: No headaches, no weakness, no numbness. HEMATOLOGICAL: Denies any bleeding or petechiae. GENITOURINARY: Denies any burning micturition, frequency, or urgency. MUSCULOSKELETAL/RHEUMATOLOGICAL: Denies any joint pain, swelling, or any muscle pain. ENDOCRINE: Denies any polyuria or polydipsia. The rest of the 14-point review of systems is negative. PHYSICAL EXAMINATION: GENERAL: The patient is alert and oriented x3, not in any acute distress. Well developed, well nourished. HEENT: Pupils are round and equally reacting to light. EOMI. No scleral icterus. No conjunctival pallor. Normocephalic, atraumatic. No pharyngeal erythema. No thyromegaly. CARDIOVASCULAR: S1 and S2 present. No murmurs, rubs, or gallops. PULMONARY: Chest is clear to auscultation, no wheezing or crackles. ABDOMEN: Surgical site areas appear to be clean bowel sounds present MUSCULOSKELETAL: No joint swelling or deformity. EXTREMITIES: No cyanosis, clubbing, or pedal edema. NEUROLOGICAL: Gross neurological examination did not reveal any focal deficits. SKIN: No rashes. Assessment and plan -Hypertension blood pressure is well-controlled patient will be resumed on 1 regimen which was already ordered. -Asthma without any acute exacerbation for better healing I recommended patient to hold prednisone for about a week. --Gastroesophageal reflux disease -hyperlipidemia Patient can be discharged from medical perspective. Past Medical History Past Medical History: Asthma, Eye Disorder, GERD/Reflux, Hyperlipidemia, Hypertension, Osteoarthritis (OA) Additional Past Medical History / Comment(s): glaucoma, hx migraines, hiatal hernia, arthritis in hands and feet, "leaky bladder" FREQ UTI'S History of Any Multi-Drug Resistant Organisms: ESBL Year Discovered:: 07/16/22 ESBL-E.coli MDRO Source:: URINE Past Surgical History: Bowel Resection, Breast Surgery, Joint Replacement, Orthopedic Surgery Additional Past Surgical History / Comment(s): monae knee replacement, rt knee arthroscopy, breast biopsy, monae cataracts, COLONOSCOPY, EGD Past Anesthesia/Blood Transfusion Reactions: Motion Sickness Additional Past Anesthesia/Blood Transfusion Reaction / Comm: no blood transf usion Smoking Status: Never smoker - Past Family History Brother(s) Family Medical History: Cancer Additional Family Medical History / Comment(s): leukemia Mother Family Medical History: No Reported History Medications and Allergies Home Medications Medication Instructions Recorded Confirmed Type Montelukast [Singulair] 10 mg PO HS 07/15/17 10/18/22 History Potassium Chloride ER [K-Dur 20] 20 meq PO BID 07/15/17 10/18/22 History hydroCHLOROthiazide 25 mg PO Q48H 07/15/17 10/18/22 History Esomeprazole Magnesium 40 mg PO DAILY 09/03/19 10/18/22 History Metoprolol Tartrate [Lopressor] 25 mg PO BID 06/11/20 10/18/22 History Fluticasone Propionate [Flovent 1 puff INHALATION RT-DAILY 07/29/21 10/18/22 History Hfa 220 mcg] Rosuvastatin [Crestor] 10 mg PO HS 07/29/21 10/18/22 History cycloSPORINE 0.05% OPHTH SOLN 1 drop BOTH EYES BID 07/29/21 10/18/22 History [Restasis] Acetaminophen Tab [Tylenol] 650 mg PO Q6HR PRN tab 07/20/22 10/18/22 Rx Felodipine ER [Plendil] 5 mg PO DAILY 10/13/22 10/18/22 History Unk Fiber Gummies 1 tab PO DAILY PRN 10/13/22 10/18/22 History Acetaminophen Tab [Tylenol Tab] 500 mg PO Q6H PRN #30 tablet 10/19/22 Rx Simethicone 40 mg/0.6 ml Drops 40 mg PO Q6HR PRN #30 ml 10/19/22 Rx [Mylicon Drops] predniSONE 5 mg PO DAILY #0 10/19/22 10/18/22 Rx Allergies Allergy/AdvReac Type Severity Reaction Status Date / Time Penicillins Allergy Rash/Hives Verified 10/18/22 10:09 codeine AdvReac Nausea & Verified 10/18/22 10:09 Vomiting meperidine [From Demerol] AdvReac Nausea & Verified 10/18/22 10:09 Vomiting Physical Exam Vitals: Vital Signs Temp Pulse Resp BP Pulse Ox 10/19/22 12:12 97.7 F 72 17 139/92 92 L 10/19/22 08:00 72 18 10/19/22 07:08 98.4 F 72 18 160/85 95 10/19/22 01:32 97.4 F L 73 15 133/73 93 L 10/18/22 19:12 97.4 F L 86 14 148/76 96 10/18/22 16:44 83 16 127/60 94 L 10/18/22 16:29 72 16 143/60 96 10/18/22 16:14 85 16 127/71 93 L 10/18/22 15:59 64 16 130/59 99 10/18/22 15:44 61 16 131/69 99 10/18/22 15:29 54 L 16 114/57 100 10/18/22 15:14 57 L 16 113/55 100 10/18/22 14:59 58 L 16 138/65 100 Intake and Output 10/18/22 10/19/22 10/19/22 22:59 06:59 14:59 Intake Total 500 Output Total 150 Balance 350 Intake: IV 500 Output: Urine 150 Other: Voiding Method Bedside Commode Bedside Commode Incontinent Incontinent # Voids 1 1 Weight 65.1 kg Results CBC & Chem 7: 10/19/22 05:33 10/19/22 05:33 Labs: Abnormal Lab Results - Last 24 Hours (Table) 10/18/22 10/19/22 10/19/22 Range/Units 15:18 05:33 05:33 RBC 4.07 L (4.10-5.20) X 10*6/uL Lymphocytes # 0.67 L (0.90-5.00) X 10*3/uL Eosinophils # 0 L (0.04-0.35) X 10*3/uL Anion Gap 7.70 L (10.00-18.00) mmol/L POC Glucose (mg/dL) 180 H (70-110) mg/dL Phosphorus 2.2 L (2.4-5.1) mg/dL
[2022-10-19] MEDS ORDERED: MAGNESIUM SULFATE-D5W PMX 1 GM in DEXTROSE/WATER 1 100ML.BAG IVPB ONE (15:00)
--- NOTE | 2022-10-19 16:07 | P.DS ---
Providers Expected date of discharge: 10/19/22 Attending physician: Kacy Acuña Consults: 10/18/22 18:37 Consult Physician Routine Consulting Provider: Juan Miguel Aguilar Consult Reason/Comments: Medical management Do you want consulting provider notified?: Yes Primary care physician: Kimo De Anda Hospital Course: Discharge diagnosis 1. Recurrent incarcerated paraesophageal diaphragmatic hiatal hernia, 4 x 3 cm 2. Hypertensive heart disease 3. Chronic obstructive pulmonary disease 4. Steroid-dependent 5. Migraines 6. Anxiety 7. Depressive disorder 8. Hyperlipidemia 9. Gastroesophageal reflux disease 10. Dysphagia 11. Severe peritoneal adhesions, midline, pelvis, epigastrium Hospital course The patient is a 77-year-old female who presents with dysphagia, epigastric abdominal pain, gastroesophageal reflux disease poorly controlled despite medications, and a symptomatic diaphragmatic hiatal hernia. Patient is status post Robotic-assisted da Jessie Xi laparoscopic repair of incarcerated paraesophageal hiatal hernia, 4 x 3 cm, with [place] Biopatch A 8 x 8 cm, lysis of adhesions and Intraoperative esophagogastroduodenoscopy. Her upper GI shows no evidence of leak or obstruction. Patient is tolerating diet. She is afebrile. She is having flatus. She has been up and ambulating. She is stable for discharge. Physician Kiln Operator Helper note has been reviewed by physician. Signing provider agrees with the documented findings, assessment, and plan of care. As above, esophagram reviewed demonstrating no leak or large recurrent hernia. Patient was stable for discharge. Patient Condition at Discharge: Stable Plan - Discharge Summary Discharge Rx Participant: No New Discharge Prescriptions: New Simethicone 40 mg/0.6 ml Drops [Mylicon Drops] 40 mg PO Q6HR PRN #30 ml PRN Reason: Abdominal Distention Acetaminophen Tab [Tylenol Tab] 500 mg PO Q6H PRN #30 tablet PRN Reason: Pain Continue Potassium Chloride ER [K-Dur 20] 20 meq PO BID Montelukast [Singulair] 10 mg PO HS hydroCHLOROthiazide 25 mg PO Q48H Esomeprazole Magnesium 40 mg PO DAILY Metoprolol Tartrate [Lopressor] 25 mg PO BID cycloSPORINE 0.05% OPHTH SOLN [Restasis] 1 drop BOTH EYES BID Fluticasone Propionate [Flovent Hfa 220 mcg] 1 puff INHALATION RT-DAILY Rosuvastatin [Crestor] 10 mg PO HS Acetaminophen Tab [Tylenol] 650 mg PO Q6HR PRN tab PRN Reason: Fever And/ Or Pain Unk Fiber Gummies 1 tab PO DAILY PRN PRN Reason: Constipation predniSONE 5 mg PO DAILY #0 Felodipine ER [Plendil] 5 mg PO DAILY Discharge Medication List Montelukast [Singulair] 10 mg PO HS 07/15/17 [History] Potassium Chloride ER [K-Dur 20] 20 meq PO BID 07/15/17 [History] hydroCHLOROthiazide 25 mg PO Q48H 07/15/17 [History] Esomeprazole Magnesium 40 mg PO DAILY 09/03/19 [History] Metoprolol Tartrate [Lopressor] 25 mg PO BID 06/11/20 [History] Fluticasone Propionate [Flovent Hfa 220 mcg] 1 puff INHALATION RT-DAILY 07/29/21 [History] Rosuvastatin [Crestor] 10 mg PO HS 07/29/21 [History] cycloSPORINE 0.05% OPHTH SOLN [Restasis] 1 drop BOTH EYES BID 07/29/21 [History] Acetaminophen Tab [Tylenol] 650 mg PO Q6HR PRN tab 07/20/22 [Rx] Felodipine ER [Plendil] 5 mg PO DAILY 10/13/22 [History] Unk Fiber Gummies 1 tab PO DAILY PRN 10/13/22 [History] Acetaminophen Tab [Tylenol Tab] 500 mg PO Q6H PRN #30 tablet 10/19/22 [Rx] Simethicone 40 mg/0.6 ml Drops [Mylicon Drops] 40 mg PO Q6HR PRN #30 ml 10/19/22 [Rx] predniSONE 5 mg PO DAILY #0 10/19/22 [Rx] Follow up Appointment(s)/Referral(s): Kacy Acuña MD [STAFF PHYSICIAN] - 10/26/22 (telehealth) Kimo De Anda DO [Primary Care Provider] - 1 Week (PLEASE CALL AND SCHEDULE APPOINTMENT.) Patient Instructions/Handouts: *Surgery [facility] - ([facility]) Lap Anne Fundiplication Post-Op Instructions, Acetaminophen (By mouth), Simethicone (By mouth) Activity/Diet/Wound Care/Special Instructions: Liquid diet only for 2 weeks, Nov 02 No lifting over 4 pounds in 4 weeks. November 17January shower No soaking in bath tubs for 2 weeks, Nov 02 Please notify your surgeon if you develop nausea and vomiting including new onset of abdominal pain. Please ambulate at all times. Use Simethicone, Gas-X, Tylenol and ibuprofen or Aleve scheduled for the next 24-48 hours for best pain relief. Use ice along incisions for the today to prevent swelling. Please open, cut, crush pills larger than the size of a tic tack No carbonated beverages. No straws. Do not remove scopolamine patch for 3 days, if present Avoiding Gas Avoid drinking through a straw. Do not chew gum or tobacco. These actions cause you to swallow air, which produces excess gas in your stomach. Chew with your mouth closed. Avoid any foods that cause stomach gas and distention. These foods include corn, dried beans, peas, lentils, onions, broccoli, cauliflower and any food from the cabbage family. Avoid carbonated drinks, alcohol, citrus and tomato products. Carbonated drinks (sodas) are not allowed for the first six to eight weeks after surgery. After this time you can try them again in small amounts Clear Liquid Diet The first diet after surgery is the clear liquid diet. It includes the following liquids: Apple juice Cranberry juice Grape juice Chicken broth Beef broth Flavored gelatin (Jell-O) Decaf tea and coffee Caffeinated beverages are permitted based on tolerance Popsicles [place] ice Full Liquid Diet The full liquid diet contains anything on the clear liquid diet, plus: Milk, soy, rice and almond (no chocolate) Cream of wheat, cream of rice, grits Strained creamed soups (no tomato or broccoli) Vanilla and strawberry-flavored ice cream Sherbet Blended, custard styled or whipped yogurt (plain or vanilla only) Vanilla and butterscotch pudding (no chocolate or coconut) Nutritional drinks including Ensure, Boost, [place] Instant Breakfast (no chocolate-flavored) Note: Dairy products, such as milk, ice cream and pudding, may cause diarrhea in some people just after surgery. You may need to avoid milk products. If so, substitute them with lactose-free beverages, such as soy, rice, Lactaid or almond milks. Discharge Disposition: HOME SELF-CARE
== END 2022-10-19 16:59 | disposition home or self-care (01) ==
LOC: OR 09:39 → 5NMEDONC 14:29 → OR 10-19 16:59
PROVIDERS: ATTEND Surgery Plastic and Reconstructive Surgery
DX: K44.0 Diaphragmatic hernia with obstruction, without gangrene (principal); E78.5 Hyperlipidemia, unspecified; F32.A Depression, unspecified; F41.9 Anxiety disorder, unspecified; G43.909 Migraine, unspecified, not intractable, without status migrainosus; I11.9 Hypertensive heart disease without heart failure; J44.9 Chronic obstructive pulmonary disease, unspecified; K21.9 Gastro-esophageal reflux disease without esophagitis; K66.0 Peritoneal adhesions (postprocedural) (postinfection); M19.042 Primary osteoarthritis, left hand; R13.10 Dysphagia, unspecified; Z01.818 Encounter for other preprocedural examination; Z79.51 Long term (current) use of inhaled steroids; Z79.52 Long term (current) use of systemic steroids; Z79.621 Long term (current) use of calcineurin inhibitor; Z79.899 Other long term (current) drug therapy; Z87.440 Personal history of urinary (tract) infections; Z88.0 Allergy status to penicillin; Z88.5 Allergy status to narcotic agent; Z96.653 Presence of artificial knee joint, bilateral; Z98.890 Other specified postprocedural states
CPT/HCPCS: 43282; 94640; 94002; 80051; 80053; 82310; 82565; 83735; 84100; 84520; 85025 ×2; 74210; C1781; J1100 ×2; J0690 ×2; J2405; J3475; J0131 ×2; J1885 ×2; J7512; C9113 ×2; Q9967; J1644

== ENCOUNTER 2022-11-29 08:15 | Day surgery (SDC) | payer MEDICARE ==
[2022-11-26 13:16] VITALS: BMI 27.5
--- NOTE | 2022-11-29 07:38 | P.GSHP ---
History of Present Illness H&P Date: 11/29/22 CHIEF COMPLAINT: Esophageal stricture HISTORY OF PRESENT ILLNESS: The patient is a 77-year-old female who presents reports dysphagia. Upper endoscopy was offered for further evaluation and management. PAST MEDICAL HISTORY: Please see list. PAST SURGICAL HISTORY: Please see list. MEDICATIONS: Please see list. ALLERGIES: Please see list. SOCIAL HISTORY: No illicit drug use FAMILY HISTORY: No reports of Crohn disease or ulcerative colitis. REVIEW OF ORGAN SYSTEMS: CONSTITUTIONAL: No reports of fevers or chills. GI: Denies any blood in stools or constipation. PHYSICAL EXAM: VITAL SIGNS: Stable GENERAL: Well-developed and pleasant in no acute distress. HEENT: No scleral icterus. Extraocular movements grossly intact. Moist buccal mucosa. NECK: Supple without lymphadenopathy. CHEST: Unlabored respirations. Equal bilateral excursions. CARDIOVASCULAR: Regular rate and rhythm. Distal 2+ pulses. ABDOMEN: Soft, nondistended. MUSCULOSKELETAL: No clubbing, cyanosis, or edema. ASSESSMENT: 1. Esophageal stricture PLAN: 1. Recommend proceeding with an upper endoscopy with rigid dilators. Past Medical History Past Medical History: Asthma, Eye Disorder, GERD/Reflux, Hyperlipidemia, Hypertension, Osteoarthritis (OA) Additional Past Medical History / Comment(s): glaucoma, hx migraines, hiatal hernia, arthritis in hands and feet, "leaky bladder" FREQ UTI'S, chronic sinus problems History of Any Multi-Drug Resistant Organisms: ESBL Date of last positivie culture/infection: 07/16/22 ESBL-E.coli MDRO Source:: URINE Past Surgical History: Bowel Resection, Breast Surgery, Hernia Repair, Joint Replacement, Orthopedic Surgery Additional Past Surgical History / Comment(s): monae knee replacement, rt knee arthroscopy, left breast biopsy (Benign), monae cataracts, COLONOSCOPY, EGD, hiatal hernia repair x2 Past Anesthesia/Blood Transfusion Reactions: Motion Sickness Additional Past Anesthesia/Blood Transfusion Reaction / Comment(s): slow to wake up at times Smoking Status: Never smoker - Past Family History Brother(s) Family Medical History: Cancer Additional Family Medical History / Comment(s): leukemia Mother Family Medical History: No Reported History Medications and Allergies Home Medications Medication Instructions Recorded Confirmed Type Montelukast [Singulair] 10 mg PO HS 07/15/17 11/26/22 History Potassium Chloride ER [K-Dur 20] 20 meq PO BID 07/15/17 11/26/22 History hydroCHLOROthiazide 25 mg PO Q48H 07/15/17 11/26/22 History Esomeprazole Magnesium 40 mg PO DAILY 09/03/19 11/26/22 History Metoprolol Tartrate [Lopressor] 25 mg PO BID 06/11/20 11/26/22 History Fluticasone Propionate [Flovent 1 puff INHALATION RT-DAILY 07/29/21 11/26/22 History Hfa 220 mcg] Rosuvastatin [Crestor] 10 mg PO HS 07/29/21 11/26/22 History cycloSPORINE 0.05% OPHTH SOLN 1 drop BOTH EYES BID 07/29/21 11/26/22 History [Restasis] Felodipine ER [Plendil] 5 mg PO DAILY 10/13/22 11/26/22 History Unk Fiber Gummies 1 tab PO DAILY PRN 10/13/22 11/26/22 History Acetaminophen Tab [Tylenol Tab] 500 mg PO Q6H PRN #30 tablet 10/19/22 11/26/22 Rx predniSONE 5 mg PO DAILY #0 10/19/22 11/26/22 Rx Lifitegrast [Xiidra] 5 % BOTH EYES DAILY 11/26/22 11/26/22 History Allergies Allergy/AdvReac Type Severity Reaction Status Date / Time Penicillins Allergy Rash/Hives Verified 11/26/22 13:07 codeine AdvReac Nausea & Verified 11/26/22 13:07 Vomiting meperidine [From Demerol] AdvReac Nausea & Verified 11/26/22 13:07 Vomiting
[~2022-11-29 08:15] MED LIST changes: -CHLORHEXIDINE GLUCONATE 15 ML CUP MUCOUS MEM PRN; -DEXAMETHASONE SOD PHOSPHATE 4 MG/ML 1 ML VIAL IV ONE; -HEPARIN SODIUM,PORCINE/PF 5,000 UNIT/0.5 ML SYRINGE SQ PRN; -HYDROmorphone 0.5 MG/0.5 ML SYRINGE IVP PRN; +LACTATED RINGERS 1,000 ML IV SCH; -MIDAZOLAM 2 MG/2 ML VIAL IV PRN; -ONDANSETRON 4 MG/2 ML VIAL IVP ONE; -PANTOPRAZOLE 40 MG/10 ML VIAL IVP PRN; -metroNIDAZOLE-NS PMX 500 MG in SALINE 1 100ML.BAG IVPB PRN
[2022-11-29 08:42] VITALS: TEMP 98
[2022-11-29] MEDS ORDERED: LIDOCAINE 2% INJ 20 MG/ML (2 ML VIAL) ONE (08:50)
[2022-11-29] MEDS ORDERED: PROPOFOL 10 MG/ML 20 ML VIAL IV ONE (08:50)
[2022-11-29 08:51] LABS: Glucose,Whole Blood 108 mg/dL (70-110)
[2022-11-29 09:15] VITALS: RESP 16
--- NOTE | 2022-11-29 09:17 | P.PCN ---
Date of Procedure: 11/29/22 Description of Procedure: PREOPERATIVE DIAGNOSIS: Dysphagia. Gastroesophageal reflux disease Esophageal stricture POSTOPERATIVE DIAGNOSIS: Dysphagia. Gastroesophageal reflux disease Esophageal stricture Gastroparesis OPERATION: Esophagogastroduodenoscopy with rigid dilator over the guidewire 51 Fr. SURGEON: Kacy Acuña MD ANESTHESIA: MAC. INDICATIONS: The patient is a 77-year-old male who presents with dysphagia. Benefits and risks of the procedure were described. Informed consent was obtained. DESCRIPTION: The patient was brought into the endoscopy suite and laid in the left lateral decubitus position. After a timeout was confirmed, the procedure was initiated. An Olympus gastroscope was passed and the stomach was entered. The scope was advanced to the duodenum which was unremarkable. Moderate retained food including corn celery and fibrous fruits were found within the stomach prohibiting successful retroflexion of the scope. Findings consistent with gastroparesis. Next using an Congolese rigid dilator, a guidewire was placed through the pediatric gastroscope. Next the scope was withdrawn. A 51-Chinese rigid Congolese dilator was passed carefully along the posterior oropharynx to 50 cm and left in place for 2-3 minutes stretch. The dilator was withdrawn including t he guidewire. The scope was reentered along the posterior oropharynx with no findings of full-thickness tear of the upper esophageal sphincter. Next, inflammation of the antrum was identified with cold forceps biopsies obtained. No full-thickness injury was encountered. The GI tract was desufflated. The patient tolerated the procedure well. FINDINGS: Squamocolumnar junction unremarkable at 35 cm. Dilation with Congolese rigid dilator 51-Chinese completed. No recurrent hiatus hernia Moderate gastroparesis with retained food including corn, celery, fibrous food Hill grade 1 lower esophageal valve. LA grade B esophagitis. RECOMMENDATIONS: Recommend dietary changes due to gastroparesis Plan - Discharge Summary New Discharge Prescriptions: Continue Potassium Chloride ER [K-Dur 20] 20 meq PO BID Montelukast [Singulair] 10 mg PO HS hydroCHLOROthiazide 25 mg PO Q48H Esomeprazole Magnesium 40 mg PO DAILY Metoprolol Tartrate [Lopressor] 25 mg PO BID cycloSPORINE 0.05% OPHTH SOLN [Restasis] 1 drop BOTH EYES BID Fluticasone Propionate [Flovent Hfa 220 mcg] 1 puff INHALATION RT-DAILY Rosuvastatin [Crestor] 10 mg PO HS Unk Fiber Gummies 1 tab PO DAILY PRN PRN Reason: Constipation predniSONE 5 mg PO DAILY #0 Felodipine ER [Plendil] 5 mg PO DAILY Acetaminophen Tab [Tylenol] 500 mg PO Q6H PRN #30 tablet PRN Reason: Pain Lifitegrast [Xiidra] 5 % BOTH EYES DAILY Discharge Medication List Montelukast [Singulair] 10 mg PO HS 07/15/17 [History] Potassium Chloride ER [K-Dur 20] 20 meq PO BID 07/15/17 [History] hydroCHLOROthiazide 25 mg PO Q48H 07/15/17 [History] Esomeprazole Magnesium 40 mg PO DAILY 09/03/19 [History] Metoprolol Tartrate [Lopressor] 25 mg PO BID 06/11/20 [History] Fluticasone Propionate [Flovent Hfa 220 mcg] 1 puff INHALATION RT-DAILY 07/29/21 [History] Rosuvastatin [Crestor] 10 mg PO HS 07/29/21 [History] cycloSPORINE 0.05% OPHTH SOLN [Restasis] 1 drop BOTH EYES BID 07/29/21 [History] Felodipine ER [Plendil] 5 mg PO DAILY 10/13/22 [History] Unk Fiber Gummies 1 tab PO DAILY PRN 10/13/22 [History] Acetaminophen Tab [Tylenol] 500 mg PO Q6H PRN #30 tablet 10/19/22 [Rx] predniSONE 5 mg PO DAILY #0 10/19/22 [Rx] Lifitegrast [Xiidra] 5 % BOTH EYES DAILY 11/26/22 [History] Follow up Appointment(s)/Referral(s): Kacy Acuña MD [STAFF PHYSICIAN] - 12/07/22 Patient Instructions/Handouts: Gastroparesis (DC), Esophageal Dilation (DC) Discharge Disposition: HOME SELF-CARE
[2022-11-29 09:28] VITALS: BP 140/69; PULSE 69
== END 2022-11-29 10:03 | disposition home or self-care (01) ==
LOC: ORWHC2ENDO 08:15
PROVIDERS: ATTEND Surgery Plastic and Reconstructive Surgery
DX: K21.9 Gastro-esophageal reflux disease without esophagitis (principal); K22.2 Esophageal obstruction; K31.84 Gastroparesis; K20.90 Esophagitis, unspecified without bleeding; J45.909 Unspecified asthma, uncomplicated; E78.5 Hyperlipidemia, unspecified; I10 Essential (primary) hypertension; Z87.440 Personal history of urinary (tract) infections; Z96.653 Presence of artificial knee joint, bilateral; Z79.899 Other long term (current) drug therapy; Z79.51 Long term (current) use of inhaled steroids; Z79.52 Long term (current) use of systemic steroids; Z88.0 Allergy status to penicillin; Z88.5 Allergy status to narcotic agent
CPT/HCPCS: 43248; J2704; J2001; 43249

== ENCOUNTER → 2023-01-28 | Outpatient (CLI) | payer MEDICARE, BC ==
--- NOTE | 2023-01-28 12:02 | XR ---
EXAMINATION TYPE: XR cervical spine limited DATE OF EXAM: 01/28/2023 11:17 AM INDICATION: Patient age:Female; 77 years old; Reason for study: M54.6; [facility]. COMPARISON: None TECHNIQUE: The cervical spine was imaged in frontal, lateral, and odontoid projections. FINDINGS: The osseous structures show normal alignment without evidence of an acute fracture. There are osteoph ytes noted throughout the cervical spine on the anterior and lateral aspects of the vertebral bodies. Multilevel disc space narrowing with endplate sclerosis. There is anterior osteophytosis involving C 6-C7. Pedicles are intact. Soft tissues are within normal limits. The odontoid appears intact. IMPRESSION: 1. No fracture or dislocation. 2. Mild degenerative disc disease changes of the cervical spine.
== END | disposition home or self-care (01) ==
LOC: RADXRMAIN 11:02
PROVIDERS: ATTEND Family Medicine
DX: M50.30 Other cervical disc degeneration, unspecified cervical region (principal); M54.6 Pain in thoracic spine
CPT/HCPCS: 72040

== ENCOUNTER → 2023-02-24 | Outpatient (CLI) | payer MEDICARE, BC ==
--- NOTE | 2023-02-25 18:12 | MM ---
Reason for Exam: Screening (asymptomatic). Last mammogram was performed 1 year(s) and 1 month(s) ago. Patient History: Menarche at age 10. First Full-Term at age 33. Late child-bearing (after 28). Postmenopausal. Estrogen for 8 years from age 38 until age 46. 09/15/2018, Benign Core Biopsy on the right side. Risk Values: Magdalena 5 year model risk: 2.8%. NCI Lifetime model risk: 4.6%. Prior Study Comparison: 12/25/2020 Bilateral Screening Mammogram, [facility]. 01/27/2022 Bilateral Screening Mammogram, [facility]. 02/03/2022 Right MG 3D work up w/cad RT, [facility]. Tissue Density: There are scattered fibroglandular densities. Findings: Analyzed By CAD. Areas of asymmetric density remain unchanged when comparing to prior studies. There is no suspicious group of microcalcifications or new suspicious mass in either breast. Overall Assessment: Benign, BI-RAD 2 Management: Screening Mammogram of both breasts in 1 year. . Patient should continue monthly self-breast exams. A clinical breast exam by your physician is recommended on an annual basis. This exam should not preclude additional follow-up of suspicious palpable abnormalities. Note on Magdalena scores and lifetime risk: 1. A Magdalena score greater than 3% is considered moderate risk. If this is the case, consider specialist referral to assess eligibility for a risk reducing agent. 2. If overall lifetime risk for the development of breast cancer is 20% or higher, the patient may qualify for future screening with alternating mammogram and breast MRI. Electronically signed and approved by: Jacinda Mijares M.D. Radiologist
== END | disposition home or self-care (01) ==
LOC: RADMAMWWP 09:16
PROVIDERS: ATTEND Family Medicine
DX: Z12.31 Encounter for screening mammogram for malignant neoplasm of breast (principal); Z78.0 Asymptomatic menopausal state
CPT/HCPCS: 77063; 77067

== ENCOUNTER 2023-09-26 18:50 | Emergency (ER) | payer BC, MEDICARE ==
[2023-09-26 19:48] VITALS: TEMP 97.9
--- NOTE | 2023-09-26 21:07 | ED ---
General Adult HPI - General Source: patient, RN notes reviewed Mode of arrival: ambulatory Limitations: no limitations <Jada Skinner - Last Filed: 09/26/23 21:05> <Shauna Ronquillo - Last Filed: 09/27/23 02:37> - General Chief complaint: Nausea/Vomiting/Diarrhea Stated complaint: Vomiting Time Seen by Provider: 09/26/23 21:05 - History of Present Illness Initial comments: 77 year old female presents to the emergency department for increased fatigue, generalized weakness x5 days. Patient reports nausea and vomiting. She states that she hasnt been able to eat much because she feels like she is going to vomi t. Denies fever, chills, dysuria, hematuria. (Jada Skinner) Quick note history: This is a pleasant 77-year-old female with medical history significant for hypertension who presents to the emergency department with a chief complaint of increased fatigue and generalized weakness over the last 5 days. She is also complaining of associated nausea and vomiting. She has not been able to eat much that she has had persistent vomiting. She denies any known fevers, chills, cough, dysuria, melena or hematochezia. She does note a history of abdominal surgeries. (Shauna Ronquillo) - Related Data Home Medications Medication Instructions Recorded Confirmed Montelukast [Singulair] 10 mg PO HS 07/15/17 11/29/22 Potassium Chloride ER [K-Dur 20] 20 meq PO BID 07/15/17 11/29/22 hydroCHLOROthiazide 25 mg PO Q48H 07/15/17 11/29/22 Esomeprazole Magnesium 40 mg PO DAILY 09/03/19 11/29/22 Metoprolol Tartrate [Lopressor] 25 mg PO BID 06/11/20 11/29/22 Fluticasone Propionate [Flovent 1 puff INHALATION RT-DAILY 07/29/21 11/29/22 Hfa 220 mcg] Rosuvastatin [Crestor] 10 mg PO HS 07/29/21 11/29/22 cycloSPORINE 0.05% OPHTH SOLN 1 drop BOTH EYES BID 07/29/21 11/29/22 [Restasis] Felodipine ER [Plendil] 5 mg PO DAILY 10/13/22 11/29/22 Unk Fiber Gummies 1 tab PO DAILY PRN 10/13/22 11/29/22 Lifitegrast [Xiidra] 5 % BOTH EYES DAILY 11/26/22 11/29/22 Previous Rx's Medication Instructions Recorded Acetaminophen Tab [Tylenol] 500 mg PO Q6H PRN #30 tablet 10/19/22 predniSONE 5 mg PO DAILY #0 10/19/22 Metoclopramide [Reglan] 10 mg PO TID PRN #15 tab 09/27/23 Allergies Allergy/AdvReac Type Severity Reaction Status Date / Time Penicillins Allergy Rash/Hives Verified 09/26/23 19:37 codeine AdvReac Nausea & Verified 09/26/23 19:37 Vomiting meperidine [From Demerol] AdvReac Nausea & Verified 09/26/23 19:37 Vomiting Review of Systems ROS Other: All systems not noted in ROS Statement are negative. <Jada Skinner - Last Filed: 09/26/23 21:05> ROS Other: All systems not noted in ROS Statement are negative. <Shauna Ronquillo - Last Filed: 09/27/23 02:37> ROS Statement: Those systems with pertinent positive or pertinent negative responses have been documented in the HPI. Past Medical History Past Medical History: Asthma, Eye Disorder, GERD/Reflux, Hyperlipidemia, Hypertension, Osteoarthritis (OA) Additional Past Medical History / Comment(s): glaucoma, hx migraines, hiatal hernia, arthritis in hands and feet, "leaky bladder" FREQ UTI'S, chronic sinus problems History of Any Multi-Drug Resistant Organisms: ESBL Date of last positivie culture/infection: 07/16/22 ESBL-E.coli MDRO Source:: URINE Past Surgical History: Bowel Resection, Breast Surgery, Hernia Repair, Joint Replacement, Orthopedic Surgery Additional Past Surgical History / Comment(s): mnoae knee replacement, rt knee arthroscopy, left breast biopsy (Benign), monae cataracts, COLONOSCOPY, EGD, hiatal hernia repair x2 Past Anesthesia/Blood Transfusion Reactions: Motion Sickness Additional Past Anesthesia/Blood Transfusion Reaction / Comment(s): slow to wake up at times Past Psychological History: Depression Smoking Status: Never smoker Past Alcohol Use History: Rare Past Drug Use History: None Reported - Past Family History Brother(s) Family Medical History: Cancer Additional Family Medical History / Comment(s): leukemia Mother Family Medical History: No Reported History <Jada Skinner - Last Filed: 09/26/23 21:05> General Exam Limitations: no limitations <Jada Skinner - Last Filed: 09/26/23 21:05> <Shauna Ronquillo - Last Filed: 09/27/23 02:37> - General Exam Comments Initial Comments: Visual Physical Exam Vital signs reviewed General: Well-appearing, nontoxic, no acute distress. Head: Normocephalic, atraumatic Eyes: PERRLA, EOMI ENT: Airway patent Chest: Nonlabored breathing Skin: No visual rash, normal skin tone Neuro: Alert and oriented 3 Musculoskeletal: No gross abnormalities (Jada Skinner) General: Alert, in no acute distress Head: atraumatic normocephalic. Eyes PERRL, EOMI intact, mucous membranes moist Respiratory: Lungs clear to auscultation bilaterally Cardiovascular: Regular rate and rhythm Abdominal: Soft without guarding or rebound Extremities: Normal inspection with full range of motion and normal capillary refill Neuroogic: alert and oriented 3, CN II-XII intact, able to ambulate with steady gait Skin: warm dry and intact with normal color (Shauna Ronquillo) Course <Shauna Ronquillo - Last Filed: 09/27/23 02:37> Vital Signs 09/26/23 09/27/23 19:35 02:33 Temperature 97.9 F Pulse Rate 93 86 Respiratory 20 18 Rate Blood Pressure 140/81 149/79 O2 Sat by Pulse 96 94 L Oximetry - Reevaluation(s) Reevaluation #1: 09/27/23 00:54 Reevaluated. We are awaiting urinalysis and CT results. Patient still reports nausea. (Shauna Ronquillo) Reevaluation #2: 09/27/23 02:04 Patient reevaluated. Patient reevaluated and updated on results: CT and urinalysis. She is agreeable with plan for by mouth challenge. (Shauna Ronquillo) Reevaluation #3: 09/27/23 02:31 Evaluating her. Patient able to tolerate by mouth challenge. She is agreeable with the plan for discharge home. (Shauna Ronquillo) EKG Findings - EKG Comments: EKG Findings:: Tripped at the following: EKG performed at 22:10 rate 85 bpm normal sinus rhythm. KS interval 162, QRS duration 73, QT/QTC 377/419 <Shauna Ronquilol - Last Filed: 09/27/23 02:37> Medical Decision Making <Jada Skinner - Last Filed: 09/26/23 21:05> - Lab Data Result diagrams: 09/26/23 20:49 09/26/23 20:49 <Shauna Ronquillo - Last Filed: 09/27/23 02:37> - Medical Decision Making Quick note preformed by Jada Skinner PA-C (Jada Skinner) Was pt. sent in by a medical professional or institution (HOWIE Smith, UPWARD BOUND DIRECTOR, urgent care, hospital, or usp...) When possible be specific @ -[No] Did you speak to anyone other than the patient for history (EMS, parent, family, police, friend...)? What history was obtained from this source @ -Daughter Did you review nursing and triage notes (agree or disagree)? Why? @ -[I reviewed and agree with nursing and triage notes] Were old charts reviewed (outside hosp., previous admission, EMS record, old EKG, old radiological studies, urgent care reports/EKG's, usp records)? Report findings @ -[No old charts were reviewed] Differential Diagnosis (chest pain, altered mental status, abdominal pain women, abdominal pain men, vaginal bleeding, weakness, fever, dyspnea, syncope, headache, dizziness, GI bleed, back pain, seizure, CVA, palpatations, mental health, musculoskeletal)? @ -[not applicable] EKG interpreted by me (3pts min.). @ -[As above] X-rays interpreted by me (1pt min.). @ -[None done] CT interpreted by me (1pt min.). @ -CT does not reveal any evidence of small bowel obstruction. There is diverticulosis without evidence of diverticulitis. There is an incidental finding of 5.3 cm left renal cyst. U/S interpreted by me (1pt. min.). @ -[None done] What testing was considered but not performed or refused? (CT, X-rays, U/S, labs)? Why? @ -[None] What meds were considered but not given or refused? Why? @ -[None] Did you discuss the management of the patient with other professionals (professionals i.e. , PA, UPWARD BOUND DIRECTOR, lab, RT, psych nurse, high school social studies teacher, fiberglass boat assembly supervisor, teacher, patrol officer, renal case manager)? Give summary @ -[No] Was smoking cessation discussed for >3mins.? @ -[No] Was critical care preformed (if so, how long)? @ -[No] Were there social determinants of health that impacted care today? How? (Homelessness, low income, unemployed, alcoholism, drug addiction, transportation, low edu. Level, literacy, decrease access to med. care, fci, rehab)? @ -[No] Was there de-escalation of care discussed even if they declined (Discuss DNR or withdrawal of care, Hospice)? DNR status @ -[No] What co-morbidities impacted this encounter? (DM, HTN, Smoking, COPD, CAD, Cancer, CVA, ARF, Chemo, Hep., AIDS, mental health diagnosis, sleep apnea, morbid obesity)? @ -[None] Was patient admitted / discharged? Hospital course, mention meds given and route, prescriptions, significant lab abnormalities, going to OR and other pertinent info. @ Discharged. This is a pleasant 77-year-old female who presents the emergency department with nausea vomiting and anorexia. Patient had a thorough history and physical exam performed. Heart rate regular rate and rhythm, lungs clear to auscultation bilaterally abdomen soft and nontender. Patient had laboratory studies which were essentially unremarkable. Urinalysis reveals 3+ ketones in the urine. CT imaging is negative for any acute process. Patient was provided Zofran without symptomatic improvement. Additional Reglan and IV fluids were ordered. Patient was reevaluated multiple times during the course of the ED. She is able to tolerate a by mouth challenge. She is agreeable with the plan for discharge home. She'll follow up either a prescription for Reglan . Return precautions were discussed at length. Discharged in stable condition. She endorses she has a follow-up appointment already scheduled with her PCP tomorrow at 10 AM. Case is discussed with Dr. Barrios, ED attending who agrees with plan of care Undiagnosed new problem with uncertain prognosis? @ -[No] Drug Therapy requiring intensive monitoring for toxicity (Heparin, Nitro, Insulin, Cardizem)? @ -[No] Were any procedures done? @ -[No] Diagnosis/symptom? @ -Dehydration - Nausea and Vomiting - Hiccups Acute, or Chronic, or Acute on Chronic? @ Acute Uncomplicated (without systemic symptoms) or Complicated (systemic symptoms)? @ -Uncomplicated Side effects of treatment? @ -[No] Exacerbation, Progression, or Severe Exacerbation? @ -[No] Poses a threat to life or bodily function? How? (Chest pain, [place], [place], pneumonia, PE, COPD, DKA, ARF, appy, cholecystitis, CVA, Diverticulitis, Homicidal, Suicidal, threat to staff... and all critical care pts) @ -Low likelihood (Shauna Ronquillo) - Lab Data Lab Results 09/26/23 09/26/23 09/26/23 Range/Units 19:38 20:49 20:49 WBC 8.9 (3.8-10.6) k/uL RBC 4.54 (3.80-5.40) m/uL Hgb 13.9 (11.4-16.0) gm/dL Hct 41.9 (34.0-46.0) % MCV 92.2 (80.0-100.0) fL MCH 30.6 (25.0-35.0) pg MCHC 33.1 (31.0-37.0) g/dL RDW 13.6 (11.5-15.5) % Plt Count 204 (150-450) k/uL MPV 9.0 Neutrophils % 59 % Lymphocytes % 20 % Monocytes % 5 % Eosinophils % 15 % Basophils % 1 % Neutrophils # 5.2 (1.3-7.7) k/uL Lymphocytes # 1.8 (1.0-4.8) k/uL Monocytes # 0.4 (0-1.0) k/uL Eosinophils # 1.3 H (0-0.7) k/uL Basophils # 0.1 (0-0.2) k/uL Sodium 138 (137-145) mmol/L Potassium 4.0 (3.5-5.1) mmol/L Chloride 100 (98-107) mmol/L Carbon Dioxide 24 (22-30) mmol/L Anion Gap 14 mmol/L BUN 37 H (7-17) mg/dL Creatinine 0.56 (0.52-1.04) mg/dL Est GFR (CKD-EPI)AfAm >90 (>60 ml/min/1.73 sqM) Est GFR (CKD-EPI)NonAf 89 (>60 ml/min/1.73 sqM) Glucose 103 H (74-99) mg/dL Plasma Lactic Acid Guero (0.7-2.0) mmol/L Calcium 9.3 (8.4-10.2) mg/dL Total Bilirubin 2.0 H (0.2-1.3) mg/dL AST 29 (14-36) U/L ALT 18 (4-34) U/L Alkaline Phosphatase 39 (38-126) U/L Total Protein 7.3 (6.3-8.2) g/dL Albumin 4.2 (3.5-5.0) g/dL Amylase (30-110) U/L Lipase (23-300) U/L Urine Color Urine Appearance (Clear) Urine pH (5.0-8.0) Ur Specific Wells (1.001-1.035) Urine Protein (Negative) Urine Glucose (UA) (Negative) Urine Ketones (Negative) Urine Blood (Negative) Urine Nitrite (Negative) Urine Bilirubin (Negative) Urine Urobilinogen (<2.0) mg/dL Ur Leukocyte Esterase (Negative) Urine RBC (0-5) /hpf Urine WBC (0-5) /hpf Ur Squamous Epith Cells (0-4) /hpf Amorphous Sediment (None) /hpf Urine Mucus (None) /hpf Influenza Type A (PCR) Not Detected (Not Detectd) Influenza Type B (PCR) Not Detected (Not Detectd) RSV (PCR) Not Detected (Not Detectd) SARS-CoV-2 (PCR) Not Detected (Not Detectd) 09/26/23 09/26/23 09/26/23 Range/Units 20:49 21:47 22:05 WBC (3.8-10.6) k/uL RBC (3.80-5.40) m/uL Hgb (11.4-16.0) gm/dL Hct (34.0-46.0) % MCV (80.0-100.0) fL MCH (25.0-35.0) pg MCHC (31.0-37.0) g/dL RDW (11.5-15.5) % Plt Count (150-450) k/uL MPV Neutrophils % % Lymphocytes % % Monocytes % % Eosinophils % % Basophils % % Neutrophils # (1.3-7.7) k/uL Lymphocytes # (1.0-4.8) k/uL Monocytes # (0-1.0) k/uL Eosinophils # (0-0.7) k/uL Basophils # (0-0.2) k/uL Sodium (137-145) mmol/L Potassium (3.5-5.1) mmol/L Chloride (98-107) mmol/L Carbon Dioxide (22-30) mmol/L Anion Gap mmol/L BUN (7-17) mg/dL Creatinine (0.52-1.04) mg/dL Est GFR (CKD-EPI)AfAm (>60 ml/min/1.73 sqM) Est GFR (CKD-EPI)NonAf (>60 ml/min/1.73 sqM) Glucose (74-99) mg/dL Plasma Lactic Acid Guero 1.0 (0.7-2.0) mmol/L Calcium (8.4-10.2) mg/dL Total Bilirubin (0.2-1.3) mg/dL AST (14-36) U/L ALT (4-34) U/L Alkaline Phosphatase (38-126) U/L Total Protein (6.3-8.2) g/dL Albumin (3.5-5.0) g/dL Amylase 44 (30-110) U/L Lipase 12 L (23-300) U/L Urine Color Yellow Urine Appearance Cloudy H (Clear) Urine pH 6.0 (5.0-8.0) Ur Specific Wells 1.033 (1.001-1.035) Urine Protein 1+ H (Negative) Urine Glucose (UA) Negative (Negative) Urine Ketones 3+ H (Negative) Urine Blood Trace H (Negative) Urine Nitrite Negative (Negative) Urine Bilirubin Negative (Negative) Urine Urobilinogen 4.0 (<2.0) mg/dL Ur Leukocyte Esterase Negative (Negative) Urine RBC 5 (0-5) /hpf Urine WBC 120 H (0-5) /hpf Ur Squamous Epith Cells 10 H (0-4) /hpf Amorphous Sediment Few H (None) /hpf Urine Mucus Many H (None) /hpf Influenza Type A (PCR) (Not Detectd) Influenza Type B (PCR) (Not Detectd) RSV (PCR) (Not Detectd) SARS-CoV-2 (PCR) (Not Detectd) Disposition <Jada Skinner - Last Filed: 09/26/23 21:05> Is patient prescribed a controlled substance at d/c from ED?: No Time of Disposition: 02:32 <Shauna Ronquillo - Last Filed: 09/27/23 02:37> Clinical Impression: Dehydration, Nausea & vomiting, Hiccups Disposition: HOME SELF-CARE Instructions (If sedation given, give patient instructions): Acute Nausea and Vomiting (ED) Additional Instructions: PLease follow up with Primary Care Doctor tomorrow at 10am Please take Reglan for nausea These return to the nearest emergency Department if high fever, worsening nausea or vomiting or bloody stools, constipation develop Prescriptions: Metoclopramide [Reglan] 10 mg PO TID PRN #15 tab PRN Reason: Nausea Referrals: Kimo De Anda DO [Primary Care Provider] - 1-2 days
--- NOTE | 2023-09-26 21:21 | XR ---
EXAMINATION TYPE: XR chest 2V DATE OF EXAM: 09/26/2023 7:50 PM CLINICAL INDICATION:Female, 77 years old with history of cough; [facility] COMPARISON: None TECHNIQUE: XR chest 2V. Frontal PA and lateral views of the chest. FINDINGS: Lines/Tubes: None. Heart/mediastinum: Heart size is normal. Tortuous aorta with atherosclerotic calcifications. Pulmonary vascularity: Not increased, Lungs/Pleura: Prominent interstitial lung markings are seen scattered throughout the lungs. No eviden ce of focal consolidation, pneumothorax or pleural effusion. Musculoskeletal: No acute osseous abnormality demonstrated in the limits of the exam. Mild to modera te asymmetric elevation of the right hemidiaphragm likely related to eventration. Other findings: Mild/moderate multilevel degenerative changes in the thoracic spine with mildly exagg erated kyphosis. IMPRESSION: No acute cardiopulmonary abnormality.
[2023-09-26 21:29] LABS: Basophils # (A) 0.1 k/uL (0-0.2); Basophils % (A) 1 %; Eosinophils # (A) 1.3 k/uL (0-0.7); Eosinophils % (A) 15 %; HCT 41.9 % (34.0-46.0); HGB 13.9 gm/dL (11.4-16.0); Lymphocytes # (A) 1.8 k/uL (1.0-4.8); Lymphocytes % (A) 20 %; MCH 30.6 pg (25.0-35.0); MCHC 33.1 g/dL (31.0-37.0); MCV 92.2 fL (80.0-100.0); Monocytes # (A) 0.4 k/uL (0-1.0); Monocytes % (A) 5 %; Neutrophils # (A) 5.2 k/uL (1.3-7.7); Neutrophils % (A) 59 %; Platelet Count 204 k/uL (150-450); RBC 4.54 m/uL (3.80-5.40); RDW 13.6 % (11.5-15.5); WBC 8.9 k/uL (3.8-10.6)
[2023-09-26 21:40] LABS: ALT 18 U/L (4-34); AST 29 U/L (14-36); African American GFR (CKD) >90 (>60 ml/min/1.73 sqM); Albumin 4.2 g/dL (3.5-5.0); Alkaline Phosphatase 39 U/L (38-126); Anion Gap 14 mmol/L; Blood Urea Nitrogen 37 mg/dL (7-17); Calcium 9.3 mg/dL (8.4-10.2); Carbon Dioxide 24 mmol/L (22-30); Chloride 100 mmol/L (98-107); Glucose 103 mg/dL (74-99); Non-African American GFR(CKD) 89 (>60 ml/min/1.73 sqM); Sodium 138 mmol/L (137-145); Total Protein 7.3 g/dL (6.3-8.2)
[2023-09-26 22:09] LABS: Amylase 44 U/L (30-110); Lipase 12 U/L (23-300)
[2023-09-26] MEDS ORDERED: SODIUM CHLORIDE 0.9% 1,000 ML IV ONE (22:19)
[2023-09-26] MEDS ORDERED: ONDANSETRON 4 MG/2 ML VIAL IVP STA (22:19)
[2023-09-26] MEDS ORDERED: FAMOTIDINE 20 MG/2 ML VIAL IV STA (22:19)
[2023-09-26 23:12] LABS: Amorphous Sediment,Urine Few /hpf; Appearance,Urine Cloudy (Clear); Bilirubin,Urine Negative (Negative); Blood,Urine Trace (Negative); Color,Urine Yellow; Glucose,Urine (UA) Negative (Negative); Ketones,Urine 3+ (Negative); Leukocyte Esterase,Urine Negative (Negative); Mucus,Urine Many /hpf; Nitrite,Urine Negative (Negative); Protein,Urine 1+ (Negative); RBC,Urine 5 /hpf (0-5); Specific Gravity,Urine 1.033 (1.001-1.035); Squamous Epithelial Cell,Urine 10 /hpf (0-4); WBC,Urine 120 /hpf (0-5)
[2023-09-26] MEDS ORDERED: METOCLOPRAMIDE 5 MG/ML 2 ML VIAL IVP STA (23:23)
--- NOTE | 2023-09-27 01:33 | CT ---
EXAM: CT Abdomen and Pelvis With Intravenous Contrast CLINICAL HISTORY: ITS.REASON CT Reason: abdominal pain TECHNIQUE: Axial computed tomography images of the abdomen and pelvis with intravenous contrast. CTDI is 15.10 mGy and DLP is 777.7 mGy-cm. This CT exam was performed using one or more of the following dose reduction techniques: automated exposure control, adjustment of the mA and/or kV according to patient size, and/or use of iterative reconstruction technique. COMPARISON: CT 07/13/2022 FINDINGS: Mediastinum: Small hiatal hernia. ABDOMEN: Liver: Unremarkable. Gallbladder and bile ducts: Unremarkable. Pancreas: Fatty infiltration of the pancreas. Spleen: Unremarkable. Adrenals: Unremarkable. Kidneys and ureters: Parapelvic cysts in the left kidney. Cortical cysts in the inferior pole of the right kidney measuring 5.7 cm. Stomach and bowel: Colonic diverticulosis without diverticulitis. PELVIS: Appendix: No findings to suggest acute appendicitis. Bladder: Unremarkable. Reproductive: Unremarkable as visualized. ABDOMEN and PELVIS: Intraperitoneal space: Unremarkable. No free air. No significant fluid collection. Bones/joints: No acute fracture. Soft tissues: Unremarkable. Vasculature: Aortobiiliac atherosclerotic calcifications. Lymph nodes: Intact chain sutures within the rectum. IMPRESSION: 1. No acute abnormality. 2. Colonic diverticulosis without diverticulitis. 3. Small hiatal hernia.
[2023-09-27 02:41] VITALS: BP 149/79; PULSE 86; RESP 18
== END 2023-09-27 02:45 | disposition home or self-care (01) ==
LOC: EC 18:50
DX: E86.0 Dehydration (principal); R06.6 Hiccough; J45.909 Unspecified asthma, uncomplicated; E78.5 Hyperlipidemia, unspecified; I10 Essential (primary) hypertension; K21.9 Gastro-esophageal reflux disease without esophagitis; Z79.899 Other long term (current) drug therapy; Z86.59 Personal history of other mental and behavioral disorders; Z20.822 Contact with and (suspected) exposure to COVID-19; Z88.5 Allergy status to narcotic agent; Z88.0 Allergy status to penicillin; Z88.8 Allergy status to other drugs, medicaments and biological substances
CPT/HCPCS: 36415; 93005; 80053; 82150; 83605; 83690; 85025; 81001; 87636; 71046; 74177; 99284; 96374; 96375 ×2; 96361; J2765; J2405; J3490; Q9967

== ENCOUNTER 2023-12-07 10:34 | Day surgery (SDC) | payer MEDICARE ==
--- NOTE | 2023-12-07 08:29 | P.GSHP ---
History of Present Illness H&P Date: 12/07/23 CHIEF COMPLAINT: Colon screen HISTORY OF PRESENT ILLNESS: The patient is a 78-year-old female who presents for colon screen. Lower endoscopy was offered for further evaluation and management. PAST MEDICAL HISTORY: Please see list. PAST SURGICAL HISTORY: Please see list. MEDICATIONS: Please see list. ALLERGIES: Please see list. SOCIAL HISTORY: No illicit drug use FAMILY HISTORY: No reports of Crohn disease or ulcerative colitis. REVIEW OF ORGAN SYSTEMS: CONSTITUTIONAL: No reports of fevers or chills. PHYSICAL EXAM: VITAL SIGNS: Stable GENERAL: Well-developed pleasant in no acute distress. HEENT: No scleral icterus. Extraocular movements grossly intact. Moist buccal mucosa. NECK: Supple without lymphadenopathy. CHEST: Unlabored respirations. Equal bilateral excursions. CARDIOVASCULAR: Regular rate and rhythm. Distal 2+ pulses. ABDOMEN: Soft, nontender, nondistended. MUSCULOSKELETAL: No clubbing, cyanosis, or edema. ASSESSMENT: 1. Colon screen. PLAN: 1. Recommend proceeding with a lower endoscopy Past Medical History Past Medical History: Asthma, Eye Disorder, GERD/Reflux, Hyperlipidemia, Hypertension, Osteoarthritis (OA) Additional Past Medical History / Comment(s): Dysphagia, glaucoma, hx migraines, arthritis in hands and feet, "leaky bladder" FREQ UTI'S, chronic sinus problems History of Any Multi-Drug Resistant Organisms: ESBL Date of last positivie culture/infection: 07/16/22 ESBL-E.coli MDRO Source:: URINE Past Surgical History: Bowel Resection, Breast Surgery, Hernia Repair, Joint Replacement, Orthopedic Surgery Additional Past Surgical History / Comment(s): Bowel surgery d/t "sagging bowel", monae knee replacement, rt knee arthroscopy, left breast biopsy (Benign), monae cataracts, COLONOSCOPY, EGD, hiatal hernia repair x2 Past Anesthesia/Blood Transfusion Reactions: Motion Sickness Additional Past Anesthesia/Blood Transfusion Reaction / Comment(s): Last time with hiatal hernia repair "I stopped breathing they said d/t so much gas in my stomach, I couldn't move my lungs", Occasionally slow to wake up at times Smoking Status: Never smoker - Past Family History Brother(s) Family Medical History: Cancer Additional Family Medical History / Comment(s): leukemia Mother Family Medical History: No Reported History Medications and Allergies Home Medications Medication Instructions Recorded Confirmed Type Montelukast [Singulair] 10 mg PO HS 07/15/17 12/06/23 History hydroCHLOROthiazide 25 mg PO Q48H 07/15/17 12/06/23 History Esomeprazole Magnesium 40 mg PO QAM 09/03/19 12/06/23 History Metoprolol Tartrate [Lopressor] 25 mg PO BID 06/11/20 12/06/23 History Rosuvastatin [Crestor] 10 mg PO HS 07/29/21 12/06/23 History cycloSPORINE 0.05% OPHTH SOLN 1 drop BOTH EYES BID 07/29/21 12/06/23 History [Restasis] Felodipine ER [Plendil] 5 mg PO QAM 10/13/22 12/06/23 History Unk Fiber Gummies 1 tab PO DAILY PRN 10/13/22 12/06/23 History Acetaminophen Tab [Tylenol] 500 mg PO Q6H PRN #30 tablet 10/19/22 12/06/23 Rx Budesonide-Formot 160-4.5 Mcg 2 puff INHALATION BID 12/06/23 12/06/23 History [Symbicort 160-4.5 Mcg Inhaler] Potassium Chloride [Klor-Con 10 ER] 20 meq PO BID 12/06/23 12/06/23 History predniSONE 5 mg PO QAM 12/06/23 12/06/23 History Allergies Allergy/AdvReac Type Severity Reaction Status Date / Time Penicillins Allergy Rash/Hives Verified 12/06/23 09:28 codeine AdvReac Nausea & Verified 12/06/23 09:28 Vomiting meperidine [From Demerol] AdvReac Nausea & Verified 12/06/23 09:28 Vomiting
[~2023-12-07 10:34] MED LIST changes: -LIDOCAINE 1% (10MG/ML) FOR IV START INTRADERMA PRN
[2023-12-07] MEDS: LACTATED RINGERS 1,000 ML IV ONE (11:20)
[2023-12-07] MEDS: HYDROCORTISONE SUCCINATE 100 MG/2 ML VIAL IVP ONE (11:20)
[2023-12-07] MEDS ORDERED: LIDOCAINE 1% INJ 10MG/ML (20 ML MDV) ONE (11:24)
[2023-12-07] MEDS ORDERED: PROPOFOL 10 MG/ML 20 ML VIAL IV ONE (11:24)
[2023-12-07 11:38] VITALS: RESP 16; TEMP 97.1
--- NOTE | 2023-12-07 11:49 | P.GSHP ---
History of Present Illness H&P Date: 12/07/23 CHIEF COMPLAINT: Esophageal stricture HISTORY OF PRESENT ILLNESS: The patient is a 78-year-old female who presents reports dysphagia. Upper endoscopy was offered for further evaluation and management. PAST MEDICAL HISTORY: Please see list. PAST SURGICAL HISTORY: Please see list. MEDICATIONS: Please see list. ALLERGIES: Please see list. SOCIAL HISTORY: No illicit drug use FAMILY HISTORY: No reports of Crohn disease or ulcerative colitis. REVIEW OF ORGAN SYSTEMS: CONSTITUTIONAL: No reports of fevers or chills. GI: Denies any blood in stools or constipation. PHYSICAL EXAM: VITAL SIGNS: Stable GENERAL: Well-developed and pleasant in no acute distress. HEENT: No scleral icterus. Extraocular movements grossly intact. Moist buccal mucosa. NECK: Supple without lymphadenopathy. CHEST: Unlabored respirations. Equal bilateral excursions. CARDIOVASCULAR: Regular rate and rhythm. Distal 2+ pulses. ABDOMEN: Soft, nondistended. MUSCULOSKELETAL: No clubbing, cyanosis, or edema. ASSESSMENT: 1. Esophageal stricture PLAN: 1. Recommend proceeding with an upper endoscopy with rigid dilators. Past Medical History Past Medical History: Asthma, Eye Disorder, GERD/Reflux, Hyperlipidemia, Hypertension, Osteoarthritis (OA) Additional Past Medical History / Comment(s): Dysphagia, glaucoma, hx migraines, arthritis in hands and feet, "leaky bladder" FREQ UTI'S, chronic sinus problems History of Any Multi-Drug Resistant Organisms: ESBL Date of last positivie culture/infection: 07/16/22 ESBL-E.coli MDRO Source:: URINE Past Surgical History: Bowel Resection, Breast Surgery, Hernia Repair, Joint Replacement, Orthopedic Surgery Additional Past Surgical History / Comment(s): Bowel surgery d/t "sagging bowel", monae knee replacement, rt knee arthroscopy, left breast biopsy (Benign), monae cataracts, COLONOSCOPY, EGD, hiatal hernia repair x2 Past Anesthesia/Blood Transfusion Reactions: Motion Sickness Additional Past Anesthesia/Blood Transfusion Reaction / Comment(s): Last time with hiatal hernia repair "I stopped breathing they said d/t so much gas in my stomach, I couldn't move my lungs", Occasionally slow to wake up at times Smoking Status: Never smoker - Past Family History Brother(s) Family Medical History: Cancer Additional Family Medical History / Comment(s): leukemia Mother Family Medical History: No Reported History Medications and Allergies Home Medications Medication Instructions Recorded Confirmed Type Montelukast [Singulair] 10 mg PO HS 07/15/17 12/06/23 History hydroCHLOROthiazide 25 mg PO Q48H 07/15/17 12/06/23 History Esomeprazole Magnesium 40 mg PO QAM 09/03/19 12/06/23 History Metoprolol Tartrate [Lopressor] 25 mg PO BID 06/11/20 12/06/23 History Rosuvastatin [Crestor] 10 mg PO HS 07/29/21 12/06/23 History cycloSPORINE 0.05% OPHTH SOLN 1 drop BOTH EYES BID 07/29/21 12/06/23 History [Restasis] Felodipine ER [Plendil] 5 mg PO QAM 10/13/22 12/06/23 History Unk Fiber Gummies 1 tab PO DAILY PRN 10/13/22 12/06/23 History Acetaminophen Tab [Tylenol] 500 mg PO Q6H PRN #30 tablet 10/19/22 12/06/23 Rx Budesonide-Formot 160-4.5 Mcg 2 puff INHALATION BID 12/06/23 12/06/23 History [Symbicort 160-4.5 Mcg Inhaler] Potassium Chloride [Klor-Con 10 ER] 20 meq PO BID 12/06/23 12/06/23 History predniSONE 5 mg PO QAM 12/06/23 12/06/23 History Allergies Allergy/AdvReac Type Severity Reaction Status Date / Time Penicillins Allergy Rash/Hives Verified 12/07/23 10:54 codeine AdvReac Nausea & Verified 12/07/23 10:54 Vomiting meperidine [From Demerol] AdvReac Nausea & Verified 12/07/23 10:54 Vomiting Surgical - Exam Vital Signs Temp Pulse Resp BP Pulse Ox 97.1 F L 76 16 172/76 93 L 12/07/23 11:05 12/07/23 11:05 12/07/23 11:05 12/07/23 11:05 12/07/23 11:05
--- NOTE | 2023-12-07 11:52 | P.PCN ---
Date of Procedure: 12/07/23 Description of Procedure: PREOPERATIVE DIAGNOSIS: Dysphagia. POSTOPERATIVE DIAGNOSIS: Dysphagia. Esophageal stricture Sun's esophagus Recurrent diaphragmatic hiatal hernia OPERATION: Esophagogastroduodenoscopy rigid [place] dilator 57 Fr, upper esophageal sphincter. SURGEON: Kacy Acuña MD ANESTHESIA: MAC. INDICATIONS: The patient is a 78-year-old female who presents with dysphagia. Upper endoscopy was offered for further diagnostic evaluation and treatment. DESCRIPTION: The patient was brought into the endoscopy suite and laid in the left lateral decubitus position. An Olympus gastroscope was carefully passed along the posterior oropharynx. Upon entry into the proximal esophagus, a mild stricture was identified consistent with hypertensive upper esophageal sphincter. No erosion were found along the distal esophagus or ulcerations. Recurrent diaphragmatic pedal hernia was identified Sun's disease, 3 cm. The stomach was entered. The third portion of the duodenum was unremarkable. Retroflexion of the scope confirmed Hill grade 3 lower esophageal valve without recurrent diaphragmatic hiatal hernia. A guidewire was placed through the scope into the stomach. The scope was removed. A 57-Citizen Of [place] rigid dilator was placed to 45 cm from the incisors. The dilator was left in place between 2-3 minutes. The dilator and guidewire were removed. The scope was reentered along the proximal esophagus whereby the stricture had resolved of the upper esophagus. No full-thickness injury was found along the mucosa. The stomach was desufflated. The patient tolerated the procedure well. FINDINGS: Squamocolumnar junction 35 cm from the incisors. Diaphragmatic hiatus at 38 cm. Recurrent diaphragmatic hiatal hernia, 3 cm Presbyesophagus Hill grade 3 lower esophageal valve. LA grade D erosive esophagitis, 2 cm Sun's segment Hypertensive upper esophageal sphincter. RECOMMENDATIONS: Further recommendations pending results of pathology report. Upper endoscopy as needed. Plan - Discharge Summary Discharge Rx Participant: No New Discharge Prescriptions: Continue Montelukast [Singulair] 10 mg PO HS hydroCHLOROthiazide 25 mg PO Q48H Esomeprazole Magnesium 40 mg PO QAM Metoprolol Tartrate [Lopressor] 25 mg PO BID cycloSPORINE 0.05% OPHTH SOLN [Restasis] 1 drop BOTH EYES BID Rosuvastatin [Crestor] 10 mg PO HS Unk Fiber Gummies 1 tab PO DAILY PRN PRN Reason: Constipation Potassium Chloride [Klor-Con 10 ER] 20 meq PO BID Budesonide-Formot 160-4.5 Mcg [Symbicort 160-4.5 Mcg Inhaler] 2 puff INHALATION BID Felodipine ER [Plendil] 5 mg PO QAM Acetaminophen Tab [Tylenol] 500 mg PO Q6H PRN #30 tablet PRN Reason: Pain predniSONE 5 mg PO QAM Discharge Medication List Montelukast [Singulair] 10 mg PO HS 07/15/17 [History] hydroCHLOROthiazide 25 mg PO Q48H 07/15/17 [History] Esomeprazole Magnesium 40 mg PO QAM 09/03/19 [History] Metoprolol Tartrate [Lopressor] 25 mg PO BID 06/11/20 [History] Rosuvastatin [Crestor] 10 mg PO HS 07/29/21 [History] cycloSPORINE 0.05% OPHTH SOLN [Restasis] 1 drop BOTH EYES BID 07/29/21 [History] Felodipine ER [Plendil] 5 mg PO QAM 10/13/22 [History] Unk Fiber Gummies 1 tab PO DAILY PRN 10/13/22 [History] Acetaminophen Tab [Tylenol] 500 mg PO Q6H PRN #30 tablet 10/19/22 [Rx] Budesonide-Formot 160-4.5 Mcg [Symbicort 160-4.5 Mcg Inhaler] 2 puff INHALATION BID 12/06/23 [History] Potassium Chloride [Klor-Con 10 ER] 20 meq PO BID 12/06/23 [History] predniSONE 5 mg PO QAM 12/06/23 [History] Follow up Appointment(s)/Referral(s): Kacy Acuña MD [STAFF PHYSICIAN] - 12/27/23 9:45 am Patient Instructions/Handouts: Sun Esophagus (ED), Esophageal Dilation (DC) Discharge Disposition: HOME SELF-CARE
[2023-12-07 12:15] VITALS: BP 160/75; PULSE 64
== END 2023-12-07 12:36 | disposition home or self-care (01) ==
LOC: ORWHC2ENDO 10:34
PROVIDERS: ATTEND Surgery Plastic and Reconstructive Surgery
DX: K22.2 Esophageal obstruction (principal); K22.70 Barrett's esophagus without dysplasia; K21.9 Gastro-esophageal reflux disease without esophagitis; E78.5 Hyperlipidemia, unspecified; I10 Essential (primary) hypertension; J45.909 Unspecified asthma, uncomplicated; K44.9 Diaphragmatic hernia without obstruction or gangrene; M19.90 Unspecified osteoarthritis, unspecified site; N39.3 Stress incontinence (female) (male); Z79.51 Long term (current) use of inhaled steroids; Z79.52 Long term (current) use of systemic steroids; Z88.0 Allergy status to penicillin; Z88.5 Allergy status to narcotic agent; Z79.899 Other long term (current) drug therapy; Z88.8 Allergy status to other drugs, medicaments and biological substances
CPT/HCPCS: 43248; J1720; J2001; J2704

== ENCOUNTER → 2024-04-05 | Outpatient (CLI) | payer MEDICARE ==
--- NOTE | 2024-04-05 13:44 | XR ---
EXAMINATION TYPE: XR thoracic spine 2V DATE OF EXAM: 04/05/2024 COMPARISON: None HISTORY: Thoracic pain x2 years TECHNIQUE: 3 view thoracic spine FINDINGS: Scoliosis present with convexity to the right. There are 12 thoracic type vertebral bodies. Pedicles are intact. Slight exaggeration of thoracic kyphosis is present. Disc heights appear preser phill. Vertebral body heights are preserved. IMPRESSION: 1. Mild scoliosis and kyphosis. 2. No acute thoracic changes
== END | disposition home or self-care (01) ==
LOC: RADXRMAIN 13:09
PROVIDERS: ATTEND Family Medicine
DX: M41.84 Other forms of scoliosis, thoracic region (principal)
CPT/HCPCS: 72070

== ENCOUNTER → 2024-04-25 | Outpatient (CLI) | payer MEDICARE ==
--- NOTE | 2024-05-17 08:07 | MR ---
Site ID synapse default Patient Monie Gomez J ID [id number] Age/Gender: 78Y, F Order # N/A Procedure MRI CERVICAL WO CONTRAST Date 04/25/2024 6:20:21 AM EXAMINATION TYPE: MR cervical spine wo con DATE OF EXAM: 05/09/2024 COMPARISON: Cervical spine radiograph 01/28/2023, CTA Neck 11/09/2022 HISTORY: Neck pain, headaches TECHNIQUE: Motion degraded examination. Multiplanar, multisequence images of the cervical spine were acquired without contrast. FINDINGS: Alignment: The cervical vertebral bodies have preserved heights. Mild retrolisthesis of C3 on C4 and C5 on C6. Bones: Bone signal is within normal limits. Multilevel degenerative disc disease is noted. Cord: The spinal cord is unremarkable with regards to their signal intensity and morphology. Discs: Multilevel disc desiccation is present. C2-C3: Broad-based disc bulge without significant central canal stenosis. Neural foramen is patent. Mild left neural foraminal narrowing secondary to facet arthropathy. C3-C4: Broad-based disc bulge with mild central canal stenosis. Uncovertebral joint hypertrophy and b ilateral facet arthropathy results in severe left and moderate right neural foraminal stenosis. C4-C5: No significant disc pathology. The spinal canal is patent. Mild bilateral neural foraminal st enosis secondary to facet arthropathy. C5-C6: Left paracentral disc osteophyte complex resulting in [id number] central canal stenosis. Uncovertebral joint hypertrophy and facet arthropathy results in moderate right and severe left neur oforaminal stenosis. C6-C7: Left paracentral disc osteophyte complex with mild central canal stenosis. Mild bilateral neur al foraminal stenosis secondary to uncovertebral joint hypertrophy. C7-T1: No significant disc pathology. The spinal canal is patent. No neural foraminal stenosis. Other: None. IMPRESSION: 1. No evidence for disc herniation. 2. Multilevel disc degeneration with associated osteoarthritic changes as described above. This is mo st prominent at C5-C6 resulting in [id number] central canal stenosis. Varying degrees of multil evel neural foraminal stenosis as described above. 3. Mild retrolisthesis of C3 on C4 and C5 on C6.
== END | disposition home or self-care (01) ==
LOC: RADMRIMAIN 07:06
PROVIDERS: ATTEND Family Medicine
DX: M50.30 Other cervical disc degeneration, unspecified cervical region (principal); M48.02 Spinal stenosis, cervical region; M43.12 Spondylolisthesis, cervical region
CPT/HCPCS: 72141

== ENCOUNTER → 2024-06-21 | Outpatient (CLI) | payer MEDICARE ==
[2024-06-21 09:56] VITALS: BP 141/69; PULSE 61; RESP 16
--- NOTE | 2024-06-21 14:58 | P.PAINPG ---
PQRS Measure Charge Sheet Comment: HISTORY OF PRESENT ILLNESS: A 78 yr old female w brother at side as a referral from Dr De Anda presents today w severe and chronic thoracic pain secondary to radiculopathy, spondylosis and facet arthropathy without myelopathy for evaluation. Pt states pain level is provoked at 10 /10 in intensity, constant, localized in the mid spine, predominantly axial, achy in character w occasional shooting pain up to the cervical spine. Pain is provoked by bending. Pain is alleviated by PT x 6 wks which ended in Mar 2024, physician guided home stretches daily since Mar 2024, heat, ice, medications (Flexeril, Tyl), topical BioFreeze, repositioning and rest . PMH: OA, Asthma, Eye Disorder, GERD, Hyperlipidemia, HTN, Glaucoma PSH: Esophageal Dilatation (2023), EGDs/ Colonoscopies, Bowel Resection, L Breast Biopsy, Hernia Repair, BL Knee Replacement, R Knee Arthroscopy, Orthopedic Surgery, BL Cataract Extraction, HH Repair x2 SH: Negative x3 FH: Bro- Leukemia. Mo- No Reported History All: See list Meds: See list REVIEW OF ORGAN SYSTEMS: CONSTITUTIONAL: No fevers or chills. No recent weight loss. NEUROLOGICAL: + numbness and tingling along the distal extremities. No seizure disorders or headaches. MUSCULOSKELETAL: + pain PSYCHIATRIC: Denies current depression or suicidal thoughts. Physical Examinations : Constitutional : Cooperative , not in acute distress . Neurologic : Cranial nerve II to XII intact. No focal neurological deficits. Psychiatric : alert & oriented x 3. Matching mood & appropriate affect. Judgment & insight intact. Musculoskeletal : Cervical Spine Motor strength in the deltoid and biceps: Normal right side. Normal Left side Motor strength biceps and the wrist extensors: Normal right side . Normal left side Motor strength in the triceps muscle: Normal right side. Normal left side Deep tendon reflexes: Normal at the biceps. Normal at Brachioradialis. Normal at triceps Vertebral body tenderness to deep palpation over Cervical facet loading test: positive bilaterally Spurling test: positive bilaterally Neck distraction test: positive bilaterally Frances sign: positive bilaterally Thoracic spine Vertebral body TTP over T6-9 Lumbar spine Motor strength lower extremities ,thigh and legs 5/5 Right side , 5/5 Left side Deep tendon reflexes : Normal Knee Jerk. Normal Ankle Jerk Vertebral body tenderness over Walsh Test positive Lumbar facet Loading Test: positive Right / positive Left Range of motion of the lumbar spine Flexion 30 degrees, extension 10 degrees Straight Leg Raise test: Left/ Right positive at degrees Tanika test: positive right / positive left. Severe tenderness over the Sacroiliac joint on the Right / Left sides Gaenslen test: positive bilaterally Seated flexion test: positive bilaterally. Sacral spine : Severe tenderness over the Sacroiliac joint: right side / left side Range of motion: Flexion of the lumbar spine <60 degrees Range of motion: Extension of the lumbar spine <20 degrees Gaenslen's Test positive Tanika test: positive right side / left side Thigh Thrust Test Sacral Thrust Test Imaging: MRI non contrast cervical spine from 05/09/24 reviewed X ray thoracic spine from 04/05/24 reviewed Assessment/ Plan : Cervical radiculopathy, C6-C7 mild stenosis, Thoracic dextroscoliosis Recommendation of MRI non contrast thoracic spine M54.14. All questions answered. I have spent greater than 30 minutes on patient care today. Dr Deshpande was available by phone for the evaluation of this patient. The time was used to review the medical records including relevant urine studies and Prescription history (MAPs), review of the available imaging, evaluation and examination of the patient, coordination of care with the medical staff and if applicable referring physicians, as well as creation of the medical record PQRS Narrative: Smoking Status Never smoker Home Medications: Ambulatory Orders Montelukast [Singulair] 10 mg PO HS 07/15/17 hydroCHLOROthiazide 25 mg PO Q48H 07/15/17 Esomeprazole Magnesium 40 mg PO QAM 09/03/19 Metoprolol Tartrate [Lopressor] 25 mg PO BID 06/11/20 Rosuvastatin [Crestor] 10 mg PO HS 07/29/21 cycloSPORINE 0.05% OPHTH SOLN [Restasis] 1 drop BOTH EYES BID 07/29/21 Felodipine ER [Plendil] 5 mg PO QAM 10/13/22 Unk Fiber Gummies 1 tab PO DAILY PRN 10/13/22 Acetaminophen Tab [Tylenol] 500 mg PO Q6H PRN #30 tablet 10/19/22 Budesonide-Formot 160-4.5 Mcg [Symbicort 160-4.5 Mcg Inhaler] 2 puff INHALATION BID 12/06/23 Potassium Chloride [Klor-Con 10 ER] 20 meq PO BID 12/06/23 predniSONE 5 mg PO QAM 12/06/23 Controlled Substance Measures - Controlled Substance Measures Is patient prescribed a controlled substance at discharge?: No
== END ==
LOC: PNWHC3 07:50
PROVIDERS: ATTEND Specialist
DX: M47.22 Other spondylosis with radiculopathy, cervical region (principal); M48.02 Spinal stenosis, cervical region; M41.84 Other forms of scoliosis, thoracic region; Z88.0 Allergy status to penicillin; Z88.8 Allergy status to other drugs, medicaments and biological substances; Z88.5 Allergy status to narcotic agent
CPT/HCPCS: 99211

== ENCOUNTER → 2024-07-05 | Outpatient (CLI) | payer MEDICARE ==
--- NOTE | 2024-07-05 14:56 | MR ---
EXAMINATION TYPE: MR thoracic spine wo con DATE OF EXAM: 07/05/2024 COMPARISON: X-ray 04/05/2020 HISTORY: Mid back pain into right shoulder blade x2 yrs Standard multiplanar, multisequence MRI departmental protocol Multiplanar, multisequence images of the thoracic spine were acquired without contrast. FINDINGS: Incidental note made of a moderate to severe degenerative disc disease mid to lower cervica l spine on the localizer with posterior disc osteophyte complex. Please refer to prior MRI report eac h [id number]. There also appears to be retrolisthesis L1-L2 with posterior disc osteophyte complex. These are only included on the localizer images. Within the thoracic spine there is a disc desiccation and mild to moderate multilevel degenerative di sc disease with hypertrophic spurring. There are no compression deformities. There is no evidence of disc herniation, canal stenosis, or foraminal encroachment. The visualized spinal cord has a normal signal pattern. Heart is mildly prominent but the aorta is of normal caliber. On the coronal localizer images there i s a lower pole right renal cyst only partially included in the [id number]. IMPRESSION: 1. Multilevel mild to moderate degenerative disc disease of the thoracic spine with no evidence of di sc herniation, canal stenosis, or foraminal encroachment. [facility], , 07/05/2024 12:15 PM
== END | disposition home or self-care (01) ==
LOC: RADMRIMAIN 10:45
PROVIDERS: ATTEND Specialist
DX: M51.14 Intervertebral disc disorders with radiculopathy, thoracic region (principal)
CPT/HCPCS: 72146

== ENCOUNTER → 2024-08-01 | Outpatient (CLI) | payer MEDICARE ==
[2024-08-01 11:06] VITALS: BP 143/67; PULSE 64; RESP 16; TEMP 97.1
--- NOTE | 2024-08-01 16:05 | P.PAINPG ---
PQRS Measure Charge Sheet Comment: HISTORY OF PRESENT ILLNESS: A 78 yr old female w brother at side presents today w severe and chronic thoracic pain secondary to dextroscoliosis, radiculopathy, spondylosis and facet arthropathy without myelopathy for MRI results. Pt states pain level is provoked at 10 /10 in intensity, constant, localized in the mid spine, predominantly axial, achy in character w occasional shooting pain up to the cervical spine. Pain is provoked by bending. Pain is alleviated by PT x 6 wks which ended in Mar 2024, physician guided home stretches daily since Mar 2024, heat, ice, medications, topical, repositioning and rest . Interventional procedrues include Medications include Flexeril, Tyl, BioFreeze REVIEW OF ORGAN SYSTEMS: CONSTITUTIONAL: No fevers or chills. No recent weight loss. NEUROLOGICAL: + numbness and tingling along the distal extremities. No seizure disorders or headaches. MUSCULOSKELETAL: + pain PSYCHIATRIC: Denies current depression or suicidal thoughts. Physical Examinations : Constitutional : Cooperative , not in acute distress . Neurologic : Cranial nerve II to XII intact. No focal neurological deficits. Psychiatric : alert & oriented x 3. Matching mood & appropriate affect. Judgment & insight intact. Musculoskeletal : Cervical Spine Motor strength in the deltoid and biceps: Normal right side. Normal Left side Motor strength biceps and the wrist extensors: Normal right side . Normal left side Motor strength in the triceps muscle: Normal right side. Normal left side Deep tendon reflexes: Normal at the biceps. Normal at Brachioradialis. Normal at triceps Vertebral body tenderness to deep palpation over Cervical facet loading test: positive bilaterally Spurling test: positive bilaterally Neck distraction test: positive bilaterally Frances sign: positive bilaterally Thoracic spine Vertebral body TTP over T6-9 Taut bands w twitch response over R T3- T8 Lumbar spine Motor strength lower extremities ,thigh and legs 5/5 Right side , 5/5 Left side Deep tendon reflexes : Normal Knee Jerk. Normal Ankle Jerk Vertebral body tenderness over Walsh Test positive Lumbar facet Loading Test: positive Right / positive Left Range of motion of the lumbar spine Flexion 30 degrees, extension 10 degrees Straight Leg Raise test: Left/ Right positive at degrees Tanika test: positive right / positive left. Severe tenderness over the Sacroiliac joint on the Right / Left sides Gaenslen test: positive bilaterally Seated flexion test: positive bilaterally. Sacral spine : Severe tenderness over the Sacroiliac joint: right side / left side Range of motion: Flexion of the lumbar spine <60 degrees Range of motion: Extension of the lumbar spine <20 degrees Gaenslen's Test positive Tanika test: positive right side / left side Thigh Thrust Test Sacral Thrust Test Imaging: MRI non contrast cervical spine from 05/09/24 reviewed X ray thoracic spine from 04/05/24 reviewed MRI non contrast thoracic spine from 07/05/24 reviewed Assessment/ Plan : Cervical radiculopathy, C6-C7 mild stenosis, Thoracic dextroscoliosis, Thoracic radiculopathy Recommendation of R TPIs T3-T8 #1. Risks, benefits of procedure discussed and pt verbalized understanding. All questions answered. I have spent greater than 30 minutes on patient care today. Dr Deshpande was available by phone for the evaluation of this patient. The time was used to review the medical records including relevant urine studies and Prescription history (MAPs), review of the available imaging, evaluation and examination of the patient, coordination of care with the medical staff and if applicable referring physicians, as well as creation of the medical record PQRS Narrative: Smoking Status Never smoker Hx Alcohol Use (MH) No Home Medications: Ambulatory Orders Montelukast [Singulair] 10 mg PO HS 07/15/17 hydroCHLOROthiazide 25 mg PO Q48H 07/15/17 Esomeprazole Magnesium 40 mg PO QAM 09/03/19 Metoprolol Tartrate [Lopressor] 25 mg PO BID 06/11/20 Rosuvastatin [Crestor] 10 mg PO HS 07/29/21 cycloSPORINE 0.05% OPHTH SOLN [Restasis] 1 drop BOTH EYES BID 07/29/21 Felodipine ER [Plendil] 5 mg PO QAM 10/13/22 Unk Fiber Gummies 1 tab PO DAILY PRN 10/13/22 Acetaminophen Tab [Tylenol] 500 mg PO Q6H PRN #30 tablet 10/19/22 Budesonide-Formot 160-4.5 Mcg [Symbicort 160-4.5 Mcg Inhaler] 2 puff INHALATION BID 12/06/23 Potassium Chloride [Klor-Con 10 ER] 20 meq PO BID 12/06/23 predniSONE 5 mg PO QAM 12/06/23 Controlled Substance Measures - Controlled Substance Measures Is patient prescribed a controlled substance at discharge?: No
== END ==
LOC: PNWHC3 10:29
PROVIDERS: ATTEND Specialist
DX: M48.02 Spinal stenosis, cervical region (principal); M41.84 Other forms of scoliosis, thoracic region; M54.13 Radiculopathy, cervicothoracic region; Z88.0 Allergy status to penicillin; Z88.5 Allergy status to narcotic agent; Z88.8 Allergy status to other drugs, medicaments and biological substances
CPT/HCPCS: 99211

== ENCOUNTER 2024-08-23 08:03 | Day surgery (SDC) | payer MEDICARE ==
[2024-08-23 08:30] VITALS: TEMP 98.6
[2024-08-23] MEDS ORDERED: methylPREDNISolone ACETATE 40 MG/ML 1 ML VIAL ONE (08:58)
[2024-08-23] MEDS ORDERED: ROPIVACAINE 5MG/ML 20ML VIAL ONE (08:58)
--- NOTE | 2024-08-23 09:04 | P.PCN ---
Date of Procedure: 08/23/24 Procedure(s) Performed: Procedure= trigger point injections right side thoracic paraspinal muscles bilaterally , 5 on the right side from T3 to T8. Preoperative diagnosis= 1-myofascial pain syndrome thoracic paraspinal muscles 2-thoracic degenerative disc disease. Postoperative diagnosis=Same as preop Diagnosis . Complication = none Condition= stable Anesthesia= none Indication for the procedure= patient complaining of upper back pain , examination was positive for multiple trigger point in the right side thoracic paraspinal muscles , and patient diagnosed with myofascial pain syndrome and is here to have trigger point injections Description of the procedure= procedure risk and benefits discussed with the patient, including but not limited, risk of infection and bleeding, and ALLERGIC reaction to the medication and not complete pain relief and patient agreed with the preceding patient taken to the operating room, placed in sitting position or standard monitors applied to the patient then after induction of anesthesia back prepped with chlorhexidine 3 times , then under sterile technique each of the trigger point that was marked in the preop holding area 5 on the right side thoracic paraspinal muscles each one of them injected with the 2 mL of the mixture of ropivacaine 0.5% 10 ML mixed with 40 mg of Depo-Medrol and 2 mL of the mixture injected at each trigger point after negative aspiration, using 25- gauge needle, injection done after negative aspiration under was no paresthesia during the injection patient tolerated the procedure well without any complications and he will follow up in the pain clinic in a few weeks
[2024-08-23 09:07] VITALS: RESP 16
[2024-08-23 09:22] VITALS: BP 175/77; PULSE 68
== END 2024-08-23 09:34 | disposition home or self-care (01) ==
LOC: ORPAIN 08:03
PROVIDERS: ATTEND Specialist
DX: M79.18 Myalgia, other site (principal); M51.34 Other intervertebral disc degeneration, thoracic region
CPT/HCPCS: 20553; J2795; J1010

== ENCOUNTER → 2024-09-24 | Outpatient (CLI) | payer MEDICARE ==
[2024-09-24 09:43] VITALS: BP 178/77; PULSE 63; RESP 16; TEMP 98.2
--- NOTE | 2024-09-24 17:17 | P.PAINPG ---
Objective - Vital Signs Vital signs: Vital Signs Temp 98.2 F 09/24/24 09:35 Pulse 63 09/24/24 09:35 Resp 16 09/24/24 09:35 BP 178/77 09/24/24 09:35 Pulse Ox 96 09/24/24 09:35 FiO2 Intake & Output 09/23/24 09/24/24 09/24/24 18:59 06:59 18:59 Weight 63.503 kg PQRS Measure Charge Sheet Mode of Arrival: Ambulatory Comment: HISTORY OF PRESENT ILLNESS: A 78 yr old female w brother at [facility] presents today w severe and chronic thoracic pain secondary to dextroscoliosis, radiculopathy, spondylosis and facet arthropathy without myelopathy s/p R TPIs T3-T8 #1. Pt states she experienced 0 % pain relief s/p procedure. Pt states pain level is provoked at 10 /10 in intensity, intermittent, localized in the mid spine, predominantly axial, achy in character w occasional shooting pain up to the cervical spine. Pain is provoked by bending. Pain is alleviated by PT x 6 wks which ended in Mar 2024, physician guided home stretches daily since Mar 2024, heat, ice, medications, topical, repositioning and rest . Interventional procedrues include R TPIs T3-T8 x1 Medications include Flexeril, Tyl, BioFreeze REVIEW OF ORGAN SYSTEMS: CONSTITUTIONAL: No fevers or chills. No recent weight loss. NEUROLOGICAL: + numbness and tingling along the distal extremities. No seizure disorders or headaches. MUSCULOSKELETAL: + pain PSYCHIATRIC: Denies current depression or suicidal thoughts. Physical Examinations : Constitutional : Cooperative , not in acute distress . Neurologic : Cranial nerve II to XII intact. No focal neurological deficits. Psychiatric : alert & oriented x 3. Matching mood & appropriate affect. Judgment & insight intact. Musculoskeletal : Cervical Spine Motor strength in the deltoid and biceps: Normal right side. Normal Left side Motor strength biceps and the wrist extensors: Normal right side . Normal left side Motor strength in the triceps muscle: Normal right side. Normal left side Deep tendon reflexes: Normal at the biceps. Normal at Brachioradialis. Normal at triceps Vertebral body tenderness to deep palpation over Cervical facet loading test: positive bilaterally Spurling test: positive bilaterally Neck distraction test: positive bilaterally Frances sign: positive bilaterally Thoracic spine Vertebral body TTP over T6-9 Taut bands w twitch response over R T3- T8 Lumbar spine Motor strength lower extremities ,thigh and legs 5/5 Right side , 5/5 Left side Deep tendon reflexes : Normal Knee Jerk. Normal Ankle Jerk Vertebral body tenderness over Walsh Test positive Lumbar facet Loading Test: positive Right / positive Left Range of motion of the lumbar spine Flexion 30 degrees, extension 10 degrees Straight Leg Raise test: Left/ Right positive at degrees Tanika test: positive right / positive left. Severe tenderness over the Sacroiliac joint on the Right / Left sides Gaenslen test: positive bilaterally Seated flexion test: positive bilaterally. Sacral spine : Severe tenderness over the Sacroiliac joint: right side / left side Range of motion: Flexion of the lumbar spine <60 degrees Range of motion: Extension of the lumbar spine <20 degrees Gaenslen's Test positive Tanika test: positive right side / left side Thigh Thrust Test Sacral Thrust Test Imaging: MRI non contrast cervical spine from 05/09/24 reviewed X ray thoracic spine from 04/05/24 reviewed MRI non contrast thoracic spine from 07/05/24 reviewed Assessment/ Plan : Cervical radiculopathy, C6-C7 mild stenosis, Thoracic dextroscoliosis, Thoracic radiculopathy Recommendation of medication management. [place] 7.5/325mg #60 w 1 RF. Use, side effects, adverse reactions, safe storage discussed. Opiate/ narcotic agreement signed 09/24/23 . All questions answered. I have spent greater than 30 minutes on patient care today. Dr Deshpande was available by phone for the evaluation of this patient. The time was used to review the medical records including relevant urine studies and Prescription history (MAPs), review of the available imaging, evaluation and examination of the patient, coordination of care with the medical staff and if applicable referring physicians, as well as creation of the medical record - Pain Location Bilateral Upper Back Non-Pharmacological Interventions: Chiropractic Treatment, Heat, Massage, Physical Therapy, Position/Reposition, Stretching Pharmacological Interventions: Epidural, PRN Medication, Topical Medication PQRS Narrative: Smoking Status Never smoker Blood Pressure 178/77 Pain Intensity [Bilateral 3 Upper Back] Scale Used Numeric (1 - 10) Hx Alcohol Use (MH) No Home Medications: Ambulatory Orders Montelukast [Singulair] 10 mg PO DAILY 07/15/17 hydroCHLOROthiazide 25 mg PO Q48H 07/15/17 Esomeprazole Magnesium 40 mg PO QAM 09/03/19 Metoprolol Tartrate [Lopressor] 25 mg PO BID 06/11/20 Rosuvastatin [Crestor] 10 mg PO DAILY 07/29/21 cycloSPORINE 0.05% OPHTH SOLN [Restasis] 1 drop BOTH EYES BID 07/29/21 Felodipine ER [Plendil] 10 mg PO QAM 10/13/22 Unk Fiber Gummies 1 tab PO DAILY PRN 10/13/22 Acetaminophen Tab [Tylenol] 500 mg PO Q6H PRN #30 tablet 10/19/22 Budesonide-Formot 160-4.5 Mcg [Symbicort 160-4.5 Mcg Inhaler] 2 puff INHALATION BID 12/06/23 Potassium Chloride [Klor-Con 10 ER] 20 meq PO BID 12/06/23 predniSONE 5 mg PO QAM 12/06/23 Albuterol Inhaler [Ventolin Hfa Inhaler] 1 - 2 puff INHALATION Q6H PRN 08/20/24 Multivitamins, Thera [Multivitamin (formulary)] 1 tab PO DAILY 08/20/24 HYDROcodone/APAP 7.5-325MG [[place] 7.5-325] 1 tab PO BID PRN 30 Days #60 tab 09/24/24 HYDROcodone/APAP 7.5-325MG [[place] 7.5-325] 1 tab PO BID PRN 30 Days #60 tab 09/24/24 Controlled Substance Measures - Controlled Substance Measures Is patient prescribed a controlled substance at discharge?: Yes When asked, does pt state using other controlled substances?: No If prescribed controlled substance>3 days was MAPS reviewed?: Yes If Rx opioid, was Start Talking consent form obtained?: Yes Was information provided regarding opioid addiction?: Yes
== END ==
LOC: PNWHC3 08:51
PROVIDERS: ATTEND Specialist
DX: M48.02 Spinal stenosis, cervical region (principal); M54.12 Radiculopathy, cervical region; M41.34 Thoracogenic scoliosis, thoracic region; M54.14 Radiculopathy, thoracic region; G89.29 Other chronic pain; Z88.5 Allergy status to narcotic agent; Z88.0 Allergy status to penicillin; Z88.8 Allergy status to other drugs, medicaments and biological substances
CPT/HCPCS: 99211

== ENCOUNTER 2024-11-12 13:19 | Outpatient (CLI) | payer MEDICARE ==
[~2024-11-12 13:19] MED LIST changes: -LACTATED RINGERS 1,000 ML IV SCH; +SODIUM CHLORIDE 0.9% 250 ML in EMPTY BAG 1 BAG IV PRN
[2024-11-12] MEDS: SODIUM CHLORIDE 0.9% 500 ML 500 ML in EMPTY BAG 1 BAG IV PRN (13:39)
[2024-11-12] MEDS: ZOLEDRONIC ACID 5 MG in SODIUM CHLORIDE 0.9% 100 ML IV NR (13:40)
[2024-11-12 13:51] VITALS: BP 144/77; PULSE 76; RESP 16; TEMP 97.6
== END 2024-11-13 08:46 | disposition home or self-care (01) ==
LOC: PROCWHC3 13:19
PROVIDERS: ATTEND Family Medicine
DX: M81.0 Age-related osteoporosis without current pathological fracture (principal)
CPT/HCPCS: 96365; J3489

== ENCOUNTER → 2024-11-19 | Outpatient (CLI) | payer MEDICARE ==
[2024-11-19 09:48] VITALS: BP 123/79; PULSE 99; RESP 15; TEMP 96.9
--- NOTE | 2024-11-19 15:38 | P.PAINPG ---
PQRS Measure Charge Sheet Comment: HISTORY OF PRESENT ILLNESS: A 79 yr old female w brother at side presents today w severe and chronic thoracic pain secondary to dextroscoliosis, radiculopathy, spondylosis and facet arthropathy without myelopathy. Pt states pain level is provoked at 10 /10 in intensity, intermittent, localized in the mid spine, predominantly axial, achy in character w occasional shooting pain up to the cervical spine. Pain is provoked by bending. Pain is alleviated by PT x 6 wks which ended in Mar 2024, physician guided home stretches daily since Mar 2024, heat, ice, medications, topical, repositioning and rest . Interventional procedrues include R TPIs T3-T8 x1 Medications include Flexeril, Tyl, BioFreeze REVIEW OF ORGAN SYSTEMS: CONSTITUTIONAL: No fevers or chills. No recent weight loss. NEUROLOGICAL: + numbness and tingling along the distal extremities. No seizure disorders or headaches. MUSCULOSKELETAL: + pain PSYCHIATRIC: Denies current depression or suicidal thoughts. Physical Examinations : Constitutional : Cooperative , not in acute distress . Neurologic : Cranial nerve II to XII intact. No focal neurological deficits. Psychiatric : alert & oriented x 3. Matching mood & appropriate affect. Judgment & insight intact. Musculoskeletal : Cervical Spine Motor strength in the deltoid and biceps: Normal right side. Normal Left side Motor strength biceps and the wrist extensors: Normal right side . Normal left side Motor strength in the triceps muscle: Normal right side. Normal left side Deep tendon reflexes: Normal at the biceps. Normal at Brachioradialis. Normal at triceps Vertebral body tenderness to deep palpation over Cervical facet loading test: positive bilaterally Spurling test: positive bilaterally Neck distraction test: positive bilaterally Frances sign: positive bilaterally Thoracic spine Vertebral body TTP over T6-9 Taut bands w twitch response over R T3- T8 Lumbar spine Motor strength lower extremities ,thigh and legs 5/5 Right side , 5/5 Left side Deep tendon reflexes : Normal Knee Jerk. Normal Ankle Jerk Vertebral body tenderness over Walsh Test positive Lumbar facet Loading Test: positive Right / positive Left Range of motion of the lumbar spine Flexion 30 degrees, extension 10 degrees Straight Leg Raise test: Left/ Right positive at degrees Tanika test: positive right / positive left. Severe tenderness over the Sacroiliac joint on the Right / Left sides Gaenslen test: positive bilaterally Seated flexion test: positive bilaterally. Sacral spine : Severe tenderness over the Sacroiliac joint: right side / left side Range of motion: Flexion of the lumbar spine <60 degrees Range of motion: Extension of the lumbar spine <20 degrees Gaenslen's Test positive Tanika test: positive right side / left side Thigh Thrust Test Sacral Thrust Test Imaging: MRI non contrast cervical spine from 05/09/24 reviewed X ray thoracic spine from 04/05/24 reviewed MRI non contrast thoracic spine from 07/05/24 reviewed Assessment/ Plan : Cervical radiculopathy, C6-C7 mild stenosis, Thoracic dextroscoliosis, Thoracic radiculopathy Recommendation of PT x 6 wks M54.14. Ample suppply of [place] 7.5/325mg #60 w 1 RF at pharmacy which pharmacy verified she hasn't picked up. Use, side effects, adverse reactions, safe storage discussed. Opiate/ narcotic agreement signed 09/24/23 . All questions answered. I have spent greater than 30 minutes on patient care today. Dr Deshpande was available by phone for the evaluation of this patient. The time was used to review the medical records including relevant urine studies and Prescription history (MAPs), review of the available imaging, evaluation and examination of the patient, coordination of care with the medical staff and if applicable referring physicians, as well as creation of the medical record - Pain Location Medial Back Non-Pharmacological Interventions: Heat PQRS Narrative: Smoking Status Never smoker Hx Alcohol Use (MH) No Home Medications: Ambulatory Orders Montelukast [Singulair] 10 mg PO DAILY 07/15/17 hydroCHLOROthiazide 25 mg PO Q48H 07/15/17 Esomeprazole Magnesium 40 mg PO QAM 09/03/19 Metoprolol Tartrate [Lopressor] 25 mg PO BID 06/11/20 Rosuvastatin [Crestor] 10 mg PO DAILY 07/29/21 cycloSPORINE 0.05% OPHTH SOLN [Restasis] 1 drop BOTH EYES BID 07/29/21 Felodipine ER [Plendil] 10 mg PO QAM 10/13/22 Unk Fiber Gummies 1 tab PO DAILY PRN 10/13/22 Budesonide-Formot 160-4.5 Mcg [Symbicort 160-4.5 Mcg Inhaler] 2 puff INHALATION BID 12/06/23 Potassium Chloride [Klor-Con 10 ER] 20 meq PO BID 12/06/23 predniSONE 5 mg PO QAM 12/06/23 Albuterol Inhaler [Ventolin Hfa Inhaler] 1 - 2 puff INHALATION Q6H PRN 08/20/24 Multivitamins, Thera [Multivitamin (formulary)] 1 tab PO DAILY 08/20/24 Controlled Substance Measures - Controlled Substance Measures Is patient prescribed a controlled substance at discharge?: Yes
== END ==
LOC: PNWHC3 09:29
PROVIDERS: ATTEND Specialist
DX: M54.12 Radiculopathy, cervical region (principal); M54.14 Radiculopathy, thoracic region; M48.02 Spinal stenosis, cervical region; M41.84 Other forms of scoliosis, thoracic region; Z88.0 Allergy status to penicillin; Z88.5 Allergy status to narcotic agent; Z88.6 Allergy status to analgesic agent
CPT/HCPCS: 99212

== ENCOUNTER → 2025-03-06 | Outpatient (CLI) | payer MEDICARE ==
--- NOTE | 2025-03-06 12:02 | BD ---
EXAMINATION TYPE: Axial Bone Density DATE OF EXAM: 03/06/2025 CLINICAL HISTORY: 79 years old Female. ICD-10 CODE: Z78.0 ASYMPTOMATIC MENOPAUSAL STATE , Additional History: Height: 60.4 Weight: 135 FRAX RISK QUESTIONS: Glucocorticoids (More than 3mos): yes (Ex: prednisone, prednisolone, methylprednisolone, dexamethasone, and hydrocortisone). Secondary Osteoporosis: yes 3. Menopause before 45: yes RISK FACTORS height loss HISTORY OF: MEDICATIONS: bp meds, choles meds, diuretic, prednisone, vit d and calcium EXAM MEASUREMENTS: Bone mineral densitometry was performed using the [employer] System. Bone mineral density as measured about the Lumbar spine is: ----- L1-L4(G/cm2): 1.112 T Score Values are as follows: ----- L1: -0.4 ----- L2: -1.6 ----- L3: -0.5 ----- L4: -0.1 ----- L1-L4: -0.6 Z Score Values are as follows: ----- L1: 1.6 ----- L2: 0.4 ----- L3: 1.5 ----- L4: 1.9 ----- L1-L4: 1.4 Bone mineral density has: Increased 4.0% since study of: 11.09.2022 Bone mineral density about the R hip (g/cm2): 0.845 Bone mineral density about the L hip (g/cm2): 0.832 T Score values are as follows: -----R Neck: -2.1 -----L Neck: -2.3 -----R Total: -1.3 -----L Total: -1.4 Z Score values are as follows: -----R Neck: 0.2 -----L Neck: 0.0 -----R Total: 0.9 -----L Total: 0.8 Bone mineral density has: Increased 7.6% since study of: 11.09.2022 FRAX%s: The graph provided illustrates a 26.2% chance for a major osteoporotic fx and a 10.1% chance for the hips probability for fx in 10 years time. IMPRESSION: Osteopenia (T Score between -2.5 and -1). Note that measurements are approaching osteoporosis at the left hip. There is slightly increased risk of fracture and the patient may be considered for treatment. Re-Screen 2-5 years. NOTE: T-SCORE=SD OF THE YOUNG ADULT MEAN. [facility], , 03/06/2025 12:00 PM
== END | disposition home or self-care (01) ==
LOC: RADBDWWP 10:00
PROVIDERS: ATTEND Family Medicine
DX: M85.89 Other specified disorders of bone density and structure, multiple sites (principal); Z78.0 Asymptomatic menopausal state
CPT/HCPCS: 77080